=== PATIENT | male | born 1970 | race Caucasian/White ===

== ENCOUNTER 2016-05-07 15:41 | Emergency (ER) | payer MEDICAID ==
--- NOTE | 2016-05-07 17:27 | CT ---
Head CT Technique: Multiple axial sections through the brain were obtained. Intravenous contrast was not utilized. Comparison: Previous head CT study of 03/11/12. Findings: Ventricles along with basal cisterns and sulci over the convexities as well as sulci within the cerebellum appear mildly prominent. No abnormal parenchymal densities are seen. No evidence of intracranial hemorrhage. No midline shift or mass effect is seen. Bone window settings were reviewed which show no discrete calvarial abnormality. Mucosal thickening is partially visualized within the right maxillary sinus. Impression: 1. Mild generalized atrophy including the cerebellum. This appears stable from prior exam. 2. Mucosal thickening partially seen within the maxillary sinus on the right side. This appears stable from prior exam. 3. No acute intracranial abnormality is seen. Diagnostic code #2
[2016-05-07] MEDS ORDERED: Sodium Chloride 0.9% 1,000 ML IV SCH (17:45)
--- NOTE | 2016-05-07 18:02 | EDM.PDOC ---
ED HPI HEAD INJURY - General Chief Complaint: Head Injury Stated Complaint: HEAD INJURY 7 DAYS AGO, HEAD PRESSURE Time Seen by Provider: 05/07/16 16:08 Source of Information: Reports: Patient, RN notes reviewed - History of Present Illness INITIAL COMMENTS - FREE TEXT/NARRATIVE: 45-year-old male comes in with symptoms of headache, nonspecific dizziness, feeling "foggy mentally. He states he fell 8 days ago hitting his left for head. He believes that he did have at least brief LOC. States since that time he has had steady headache. There's been no nausea or vomiting. No major neck chest or other discomfort. Of note he is on aspirin and Plavix with history of prior "heart attacks". He is known to have chronic difficulty with alcohol abuse and dependency. He is known to "be a heavy drinker". He tells me that he is really "cut back and that his last alcohol was last evening, just a couple of drinks. He states she's been having difficulty with disequilibrium now for about a year or 2 and has been seeing a neurologist for that. The headache can blow to his head today is his major concern . - Related Data Allergies/ADRs: Allergies Allergy/AdvReac Type Severity Reaction Status Date / Time No Known Allergies Allergy Verified 12/08/15 06:40 Home Meds: Home Meds Clopidogrel [Plavix] 75 mg PO DAILY 06/08/15 [History] Isosorbide Mononitrate [Imdur] 30 mg PO DAILY 06/08/15 [History] Lisinopril [Prinivil] 2.5 mg PO DAILY 06/08/15 [History] Metoprolol Tartrate 50 mg PO BID 06/08/15 [History] Simvastatin [Zocor] 40 mg PO BEDTIME 06/08/15 [History] Zolpidem [Ambien] 10 mg PO BEDTIME 06/08/15 [History] traZODone 100 mg PO BEDTIME 06/08/15 [History] Aspirin [Halfprin] 81 mg PO DAILY 02/27/16 [History] Baclofen 10 mg PO DAILY 02/27/16 [History] Acetaminophen/HYDROcodone [[place] 325-5 MG] 1 tab PO Q6H PRN #8 tablet 02/29/16 [ Rx] Aspirin [Adult Low Dose Aspirin EC] 81 mg PO DAILY 05/07/16 [History] Hydrocodone/Acetaminophen [Hydrocodon-Acetaminophen 5-325] 1 tab PO DAILY [History] Past Medical History Cardiovascular History: Reports: High cholesterol, Hypertension, [place], Pacemaker, Stents Musculoskeletal History: Reports: Other (see below) Other Musculoskeletal History: Right ankle fracture Psychiatric History: Reports: Addiction, Depression - Infectious Disease History Infectious Disease History: Reports: Chicken pox - Past Surgical History Cardiovascular Surgical History: Reports: AICD, Coronary artery stent, Pacer Musculoskeletal Surgical History: Reports: None Social & Family History - Family History Family Medical History: Noncontributory Cardiac: Reports: High cholesterol, Hypertension, [place] OBGYN: Reports: - Tobacco Use Smoking Status *Q: Current Every Day Smoker Years of Tobacco use: 20 Packs/Tins Daily: 0.5 Used Tobacco, but Quit: No Second Hand Smoke Exposure: No - Caffeine Use Caffeine Use: Reports: Soda - Alcohol Use Days Per Week of Alcohol Use: 2 Number of Drinks Per Day: 2 Total Drinks Per Week: 4 - Recreational Drug Use Recreational Drug Use: No ED ROS GENERAL - Review of Systems Review Of Systems: See Below Constitutional: Denies: fever, chills, diaphoresis HEENT: Reports: Other (for head discomfort). Denies: Sinus problem, Throat pain Respiratory: Denies: shortness of breath, wheezing, pleuritic chest pain Cardiovascular: Denies: Chest pain GI/Abdominal: Denies: Nausea, Vomiting Musculoskeletal: Denies: neck pain, joint pain Skin: Reports: no symptoms Neurological: Reports: dizziness, headache (moderate), gait disturbance ( patient has had chronic gait disturbance and balance difficulty for the past one to 2 years). Denies: numbness, tingling, weakness ED EXAM, HEAD INJURY - Physical Exam Exam: See Below General Appearance: alert, no apparent distress Head: facial swelling (there is mild swelling and erythema left upper for head, apparent area of impact from fall 8 days ago), facial tenderness Eyes: bilateral eye: PERRL Nose: normal inspection Throat/Mouth: Normal inspection, Normal oropharynx Neck: non-tender, full range of motion Respiratory: no respiratory distress, lungs clear, normal breath sounds Cardiovascular: tachycardia GI/Abdominal Exam (Abbreviated): soft, non tender Back Exam: normal inspection Extremities: no evidence of injury, normal range of motion Neurologic: no motor/sensory deficits, normal mood/affect Skin: Normal color, Warm/dry Course - Vital Signs Last Recorded V/S: Last Vital Signs Temp 97.3 F 05/07/16 15:59 Pulse 66 05/07/16 18:59 Resp 12 05/07/16 18:59 BP 120/70 05/07/16 18:59 Pulse Ox 99 05/07/16 18:59 - Orders/Labs/Meds Labs: Laboratory Tests 05/07/16 05/07/16 Range/Units 16:44 16:44 WBC 5.92 (4.23-9.07) K/mm3 RBC 5.22 (4.63-6.08) M/mm3 Hgb 16.6 (13.7-17.5) gm/L Hct 48.1 (40.1-51.0) % MCV 92.1 (79.0-92.2) fl MCH 31.8 (25.7-32.2) pg MCHC 34.5 (32.2-35.5) g/dl RDW Std Deviation 45.2 H (35.1-43.9) fL Plt Count 279 (163-337) K/mm3 MPV 8.8 L (9.4-12.3) fl Neut % (Auto) 46.6 (34.0-67.9) % Lymph % (Auto) 43.6 (21.8-53.1) % [place] % (Auto) 7.6 (5.3-12.2) % Eos % (Auto) 1.7 (0.8-7.0) Baso % (Auto) 0.3 (0.1-1.2) % Neut # 2.76 (1.78-5.38) K/mm3 Lymph # 2.58 (1.32-3.57) K/mm3 [place] # 0.45 (0.30-0.82) K/mm3 Eos # 0.10 (0.04-0.54) K/mm3 Baso # 0.02 (0.01-0.08) K/mm3 Sodium 144 (136-145) mEq/L Potassium 3.6 (3.5-5.1) mEq/L Chloride 105 (98-107) mEq/L Carbon Dioxide 28 (21-32) mEq/L Anion Gap 14.6 (5-15) BUN 8 (7-18) mg/dL Creatinine 0.9 (0.7-1.3) mg/dL Est Cr Clr Drug Dosing 94.87 mL/min Estimated GFR (MDRD) > 60 (>60) mL/min BUN/Creatinine Ratio 8.9 L (14-18) Glucose 94 (74-106) mg/dL Calcium 8.7 (8.5-10.1) mg/dL Total Bilirubin 0.3 (0.2-1.0) mg/dL AST 20 (15-37) U/L ALT 37 (16-63) U/L Alkaline Phosphatase 83 (46-116) U/L Total Protein 7.7 (6.4-8.2) g/dl Albumin 4.2 (3.4-5.0) g/dl Globulin 3.5 gm/dL Albumin/Globulin Ratio 1.2 (1-2) Ethyl Alcohol 0.27 (0.00) gm% Meds: Medications Discontinued Medications Generic Name Dose Route Start Last Admin Trade Name Freq PRN Reason Stop Dose Admin Sodium Chloride 1,000 mls @ 999 mls/hr 05/07/16 17:45 05/07/16 17:54 Normal Saline IV 999 mls/hr ONETIME GABRIELA Administration - Re-Assessments/Exams Free Text/Narrative Re-Assessment/Exam: 05/07/16 17:40. CT of head has come back normal other than generalized atrophy. However labs show EtOH of 0.27. Patient sleeping at this time. We'll give 1 L of normal saline prior to discharge Departure - Departure Time of Disposition: 18:30 Disposition: Home, Self-Care 01 Condition: fair Clinical Impression: Fall Qualifiers: Encounter type: initial encounter Qualified Code(s): W19.XXXA - Unspecified fall, initial encounter Forehead contusion Qualifiers: Encounter type: initial encounter Qualified Code(s): S00.83XA - Contusion of other part of head, initial encounter Alcohol intoxication Qualifiers: Complication of substance-induced condition: uncomplicated Qualified Code(s): F10.120 - Alcohol abuse with intoxication, uncomplicated Instructions: Fall Prevention in the Home, [id number], Contusion, Easy-to- Read Referrals: Levi Bright Jr, MD [Primary Care Provider] - Forms: ED Department Discharge Additional Instructions: rest, avoid further alcohol, drink plenty of water, Tylenol once or twice daily if needed for severe headache, followup with your regular medical provider as needed
[2016-05-07 19:00] VITALS: BP 120/70
== END 2016-05-07 19:10 | disposition home or self-care (01) ==
LOC: JD.ED 15:41
DX: S00.83XA Contusion of other part of head, initial encounter (principal); F10.120 Alcohol abuse with intoxication, uncomplicated; E78.00 Pure hypercholesterolemia, unspecified; I10 Essential (primary) hypertension; I25.2 Old myocardial infarction; F17.210 Nicotine dependence, cigarettes, uncomplicated; Z79.899 Other long term (current) drug therapy; Z79.82 Long term (current) use of aspirin; W18.31XA Fall on same level due to stepping on an object, initial encounter
CPT/HCPCS: 36415; 70450; 80053; 85025; 96360; 99284; G0480; J7040; 99283

== ENCOUNTER 2016-06-03 15:17 | Emergency (ER) | payer MEDICAID ==
--- NOTE | 2016-06-03 16:25 | CT ---
Head CT Technique: Multiple axial sections through the brain were obtained. Intravenous contrast was not utilized. Comparison: Previous head CT study of 05/07/16. Findings: Ventricles along with basal cisterns and sulci over the convexities are mildly prominent. Sulci over the cerebellum are also prominent. No abnormal parenchymal densities are seen. No evidence of intracranial hemorrhage. No midline shift or mass effect is seen. No discrete calvarial abnormality is seen. Visualized sinuses are clear. Impression: 1. Generalized atrophy including the cerebellum. These findings are stable from prior exam. 2. No acute intracranial abnormality is identified on noncontrast head CT study. Diagnostic code #2
--- NOTE | 2016-06-03 16:46 | EDM.PDOC ---
ED HPI NEURO - General Chief Complaint: Neurological Problem Stated Complaint: [facility] Time Seen by Provider: 06/03/16 15:19 Source of Information: Reports: Patient History Limitations: Reports: No limitations - History of Present Illness INITIAL COMMENTS - FREE TEXT/NARRATIVE: The patient presents by ambulance for a fall he had 4 days ago. He has a headache. He has a laceration to the right lateral eyebrow that has a scab. He has had trouble with balance for about 2 years. He is currently in the care of a neurologist, Dr Patten. He is running some tests on him. He was told this could be from heavy drinking in the past and cerebellum issues. He has no nausea or vomiting. He has no chest pain or shortness of breath. He has no fever or chills. Timing/Duration: Reports: Day(s): Location (Neuro Complaint): Reports: generalized Severity: moderate Improves with: Reports: None Worsens with: Reports: None Associated Symptoms: Reports: other (Balance issues) - Related Data Allergies/ADRs: Allergies Allergy/AdvReac Type Severity Reaction Status Date / Time No Known Allergies Allergy Verified 06/03/16 15:23 Home Meds: Home Meds Clopidogrel [Plavix] 75 mg PO DAILY 06/08/15 [History] Isosorbide Mononitrate [Imdur] 30 mg PO DAILY 06/08/15 [History] Lisinopril [Prinivil] 2.5 mg PO DAILY 06/08/15 [History] Metoprolol Tartrate 50 mg PO BID 06/08/15 [History] Simvastatin [Zocor] 40 mg PO BEDTIME 06/08/15 [History] Zolpidem [Ambien] 10 mg PO BEDTIME 06/08/15 [History] traZODone 100 mg PO BEDTIME 06/08/15 [History] Aspirin [Halfprin] 81 mg PO DAILY 02/27/16 [History] Baclofen 10 mg PO DAILY 02/27/16 [History] Acetaminophen/HYDROcodone [[place] 325-5 MG] 1 tab PO Q6H PRN #8 tablet 02/29/16 [ Rx] Hydrocodone/Acetaminophen [Hydrocodon-Acetaminophen 5-325] 1 tab PO DAILY [History] Hydrocodone/Acetaminophen [Hydrocodon-Acetaminophen 5-325] 1 - 2 each PO Q6HR PRN #10 tablet 06/03/16 [Rx] Past Medical History HEENT History: Reports: Impaired vision Other HEENT History: reading glasses Cardiovascular History: Reports: High cholesterol, Hypertension, [place], Pacemaker, Stents Musculoskeletal History: Reports: Other (see below) Other Musculoskeletal History: Right ankle fracture Neurological History: Reports: Head trauma Psychiatric History: Reports: Addiction, Depression - Infectious Disease History Infectious Disease History: Reports: Chicken pox - Past Surgical History HEENT Surgical History: Reports: None Cardiovascular Surgical History: Reports: AICD, Coronary artery stent, Pacer Musculoskeletal Surgical History: Reports: None Social & Family History - Family History Family Medical History: Noncontributory Cardiac: Reports: High cholesterol, Hypertension, [place] OBGYN: Reports: - Tobacco Use Smoking Status *Q: Current Every Day Smoker Years of Tobacco use: 27 Packs/Tins Daily: 0.5 Used Tobacco, but Quit: No Second Hand Smoke Exposure: No - Caffeine Use Caffeine Use: Reports: Soda - Alcohol Use Days Per Week of Alcohol Use: 2 Number of Drinks Per Day: 2 Total Drinks Per Week: 4 - Recreational Drug Use Recreational Drug Use: No ED ROS GENERAL - Review of Systems Review Of Systems: See Below Constitutional: Reports: no symptoms HEENT: Reports: Other (Contusion and laceration to the right side of his face) Respiratory: Reports: No Symptoms Cardiovascular: Reports: No symptoms Endocrine: Reports: no symptoms GI/Abdominal: Reports: No symptoms : Reports: no symptoms Musculoskeletal: Reports: no symptoms Skin: Reports: no symptoms Neurological: Reports: Dizziness, Headache, Other (Off balance) ED EXAM, NEURO - Physical Exam Exam: See Below Exam Limited By: No limitations General Appearance: alert, no apparent distress, other (Old laceration to the right lateral eyebrow) Eye Exam: bilateral eye: EOMI, PERRL Ears: normal external exam Nose: normal inspection Throat/Mouth: Normal inspection Head Exam: other (Ecchymosis to the right lateral eye. Old laceration to the right lateral eye with a scab.) Neck: normal inspection, non-tender Respiratory/Chest: no respiratory distress, lungs clear, normal breath sounds Cardiovascular: regular rate, rhythm, no edema, no murmur GI/Abdominal: soft, non tender, no organomegaly, no mass Neurological: alert, no motor/sensory deficits, oriented x 3, abnormal finger to nose (right and left arm and right and left leg with worse on the right) Back Exam: normal inspection Extremities: normal inspection Course - Vital Signs Last Recorded V/S: Last Vital Signs Temp 98.2 F 06/03/16 15:27 Pulse 96 06/03/16 15:27 Resp 16 06/03/16 15:27 BP 138/97 H 06/03/16 15:27 Pulse Ox 97 06/03/16 15:27 - Orders/Labs/Meds Labs: Laboratory Tests 06/03/16 Range/Units 16:05 Ethyl Alcohol 0.00 (0.00) gm% Meds: Medications Discontinued Medications Generic Name Dose Route Start Last Admin Trade Name Freq PRN Reason Stop Dose Admin Hydrocodone Bitart/Acetaminophen 1 tab 06/03/16 17:15 [place] 325-5 Mg PO 06/03/16 17:16 ONETIME ONE Meclizine HCl 25 mg 06/03/16 15:47 06/03/16 16:06 Antivert PO 06/03/16 15:48 25 mg ONETIME ONE Administration - Re-Assessments/Exams Free Text/Narrative Re-Assessment/Exam: 06/03/16 16:[address] of his head that shows generalized atrophy including the cerebellum. These findings are stable from prior exam. No acute intracranial abnormality is identified on noncontrast head CT study. 06/03/16 17:25 His ETOH is negative. He will be seeing Dr Patten at [place] on June 17 and having an MRI done. I will give him a hydrocodone for his headache. Departure - Departure Time of Disposition: 17:30 Disposition: Home, Self-Care 01 Condition: good Clinical Impression: Ataxia Fall Qualifiers: Encounter type: initial encounter Qualified Code(s): W19.XXXA - Unspecified fall, initial encounter Contusion of head Qualifiers: Encounter type: initial encounter Contusion of head detail: unspecified part of head Qualified Code(s): S00.93XA - Contusion of unspecified part of head, initial encounter Headache Qualifiers: Headache type: unspecified Headache chronicity pattern: acute headache Intractability: not intractable Qualified Code(s): R51 - Headache Prescriptions: Hydrocodone/Acetaminophen [Hydrocodon-Acetaminophen 5-325] 1 - 2 each PO Q6HR PRN #10 tablet PRN Reason: Pain Referrals: Levi Bright Jr, MD [Primary Care Provider] - 1 Week Forms: ED Department Discharge Additional Instructions: Take the hydrocodone as needed for headache. Please return if you are worse. Follow up with your neurologist as scheduled.
[2016-06-03] MEDS ORDERED: Acetaminophen/HYDROcodone 325-5 MG Tab PO ONE (17:15)
[2016-06-03 18:34] VITALS: BP 118/80
== END 2016-06-03 18:00 | disposition home or self-care (01) ==
LOC: JD.ED 15:17 → SUPCPDRO 15:17 → JD.ED 18:00
DX: S00.93XA Contusion of unspecified part of head, initial encounter (principal); W19.XXXA Unspecified fall, initial encounter; R27.0 Ataxia, unspecified; Z79.82 Long term (current) use of aspirin; Z79.899 Other long term (current) drug therapy; E78.00 Pure hypercholesterolemia, unspecified; I10 Essential (primary) hypertension; Z95.810 Presence of automatic (implantable) cardiac defibrillator; Z95.5 Presence of coronary angioplasty implant and graft; F32.9 Major depressive disorder, single episode, unspecified; F17.200 Nicotine dependence, unspecified, uncomplicated
CPT/HCPCS: 36415; 70450; 99285; A9270; G0480; 99283

== ENCOUNTER 2016-11-06 10:30 | Emergency (ER) | payer MEDICAID ==
[2016-11-06 10:41] VITALS: BP 116/81
[2016-11-06] MEDS ORDERED: Ondansetron 4 MG/2 ML SDV IVPUSH ONE (11:41)
[2016-11-06] MEDS ORDERED: Sodium Chloride 0.9% 10 ML Syringe FLUSH PRN (11:41)
[2016-11-06] MEDS ORDERED: Sodium Chloride 0.9% 1,000 ML IV ONE ×2 (11:41→12:42)
--- NOTE | 2016-11-06 11:54 | EDM.PDOCBH ---
ED HPI GENERAL MEDICAL PROBLEM - General Chief Complaint: Behavioral/Psych Stated Complaint: Alcohol intoxication Time Seen by Provider: 11/06/16 10:47 Source of Information: Reports: Patient, EMS, RN Notes Reviewed History Limitations: Reports: Intoxication - History of Present Illness INITIAL COMMENTS - FREE TEXT/NARRATIVE: 46 year old male presents to the ED today via [facility] for alcohol intoxication. The patient lives in an apartment complex here in town and his casino cashier manager called EMS due to concerns for his safety. Our charge nurse MARGRET Kumar spoke to the casino cashier manager. She was referred to the States Attorneys office to discuss committal. The patient has voiced concerns of depression according to the casino cashier manager. She reported that he has been drinking excessively as of the last couple months. EMS report from Inga Zambrano states that the patient is intoxicated. She reports that the patient lost his best friend recently and his drinking and depression has been worsening since that time. The patient is intoxicated and smells of alcohol. He denies depression or suicidal ideation upon arrival to the ER. His main concern is that he is having trouble sleeping at night. He admits to drinking alcohol on a daily basis but denies alcohol withdrawal symptoms in the past. He admits to chest pain for the last 6 weeks. The pain is located to the center of his chest. It does not radiate. He denies shortness of breath. He has a history of CAD and stents. He says he has an upcoming appointment with his [employer]ch [employer]. He continues to smoke approximately 1/2 pack of cigarettes per day. He denies drug use. No lower extremity swelling. No nausea, vomiting, or abdominal pain. Chest Pain Score (Numeric/FACES): 8 - Related Data Allergies Allergy/AdvReac Type Severity Reaction Status Date / Time No Known Allergies Allergy Verified 11/06/16 10:42 Home Meds: Home Meds Clopidogrel [Plavix] 75 mg PO DAILY 06/08/15 [History] Isosorbide Mononitrate [Imdur] 30 mg PO DAILY 06/08/15 [History] Lisinopril [Prinivil] 2.5 mg PO DAILY 06/08/15 [History] Metoprolol Tartrate 50 mg PO BID 06/08/15 [History] Simvastatin [Zocor] 40 mg PO BEDTIME 06/08/15 [History] Zolpidem [Ambien] 5 - 10 mg PO BEDTIME 06/08/15 [History] traZODone 50 - 100 mg PO BEDTIME 06/08/15 [History] Aspirin [Halfprin] 81 mg PO DAILY 02/27/16 [History] Acetaminophen/HYDROcodone [[place]iday 325-5 MG] 1 - 2 tab PO Q6H PRN 11/06/16 [ History] LORazepam 1 tab PO QID PRN 11/06/16 [History] Past Medical History HEENT History: Reports: Impaired Vision Other HEENT History: reading glasses Cardiovascular History: Reports: High Cholesterol, Hypertension, [place], Pacemaker, Stents Musculoskeletal History: Reports: Other (See Below) Other Musculoskeletal History: Right ankle fracture Neurological History: Reports: Head Trauma Psychiatric History: Reports: Addiction, Depression - Infectious Disease History Infectious Disease History: Reports: Chicken Pox - Past Surgical History Cardiovascular Surgical History: Reports: AICD, Coronary Artery Stent, Pacer Social & Family History - Family History Family Medical History: Noncontributory Cardiac: Reports: High Cholesterol, Hypertension, [place] OBGYN: Reports: - Tobacco Use Smoking Status *Q: Current Every Day Smoker Years of Tobacco use: 14 Packs/Tins Daily: 0.5 Used Tobacco, but Quit: No Second Hand Smoke Exposure: No - Caffeine Use Caffeine Use: Reports: Soda - Alcohol Use Days Per Week of Alcohol Use: 7 Number of Drinks Per Day: 6 Total Drinks Per Week: 42 - Recreational Drug Use Recreational Drug Use: No ED ROS GENERAL - Review of Systems Review Of Systems: See Below Constitutional: Reports: No Symptoms. Denies: Fever, Chills, Diaphoresis Respiratory: Reports: No Symptoms. Denies: Shortness of Breath, Cough Cardiovascular: Reports: Chest Pain. Denies: Dyspnea on Exertion, Edema, Lightheadedness, Syncope GI/Abdominal: Reports: No Symptoms. Denies: Abdominal Pain, Nausea, Vomiting Neurological: Reports: No Symptoms. Denies: Confusion, Dizziness, Headache Psychiatric: Reports: Depression. Denies: Homicidal Ideation, Suicidal Ideation ED EXAM, BEHAVIORAL HEALTH - Physical Exam Exam: See Below Exam Limited By: Intoxication General Appearance: Alert, WD/WN, No Apparent Distress, Other (intoxicated, smells of ETOH) Eye Exam: Bilateral Eye: EOMI, Normal Inspection, PERRL Respiratory/Chest: No Respiratory Distress, Lungs Clear, Normal Breath Sounds Cardiovascular: Normal Peripheral Pulses, No Edema, No Murmur, Tachycardia GI/Abdominal: Normal Bowel Sounds, Soft, Non-Tender, No Distention Neurological: Alert, Normal Mood/Affect, CN II-XII Intact, Normal Cognition, Oriented x 3, Other (speech is slow and slurred at times. no facial assymetry. no focal neurologic deficit. ). No: Tremor Psychiatric: Alert, Other (patient is smiling, joking with staff, and denies suicidal ideation or plan. He tells me that he is happy and denies feeling depressed. He is having trouble sleeping and is unsure why. ). No: Withdrawn, Homicidal Thoughts, Suicidal Plan, Suicidal Thoughts, Paranoid Thoughts, Threatening Behavior COURSE, BEHAVIORAL HEALTH COMP - Course Vital Signs: Last Vital Signs Temp 98.2 F 11/06/16 10:33 Pulse 102 H 11/06/16 10:33 Resp 18 11/06/16 10:33 BP 116/81 11/06/16 10:33 Pulse Ox 96 11/06/16 10:33 Orders, Labs, Meds: Active Orders 24 hr Category Date Time Status EKG 12 Lead [EKG Documentation Completion] [RC] STAT Care 11/06/16 11:41 Active Peripheral IV Care [RC] . DIRECTED Care 11/06/16 11:42 Active Biotin/FA/Vit C/Vit B Complex [Nephrocaps] Med 11/06/16 12:57 Active 1 tab PO DAILY Sodium Chloride 0.9% [Saline Flush] Med 11/06/16 11:41 Active 10 ml FLUSH ASDIRECTED PRN Peripheral IV Insertion Adult [OM.PC] Stat Oth 11/06/16 11:41 Ordered Medication Orders Sodium Chloride (Saline Flush) 10 ml FLUSH ASDIRECTED PRN PRN Reason: Keep Vein Open Last Admin: 11/06/16 11:51 Dose: 10 ml Vitamin B Complex/Vit C/Folic Acid (Nephrocaps) 1 tab PO DAILY GABRIELA Last Admin: 11/06/16 13:44 Dose: 1 tab Laboratory Tests 11/06/16 11/06/16 11/06/16 Range/Units 11:30 11:30 11:50 WBC 5.18 (4.23-9.07) K/mm3 RBC 4.91 (4.63-6.08) M/mm3 Hgb 15.6 (13.7-17.5) gm/L Hct 45.3 (40.1-51.0) % MCV 92.3 H (79.0-92.2) fl MCH 31.8 (25.7-32.2) pg MCHC 34.4 (32.2-35.5) g/dl RDW Std Deviation 43.3 (35.1-43.9) fL Plt Count 193 (163-337) K/mm3 MPV 9.5 (9.4-12.3) fl Neut % (Auto) 43.2 (34.0-67.9) % Lymph % (Auto) 43.6 (21.8-53.1) % Edwards % (Auto) 9.5 (5.3-12.2) % Eos % (Auto) 3.3 (0.8-7.0) Baso % (Auto) 0.2 (0.1-1.2) % Neut # (Auto) 2.24 (1.78-5.38) K/mm3 Lymph # (Auto) 2.26 (1.32-3.57) K/mm3 [place] # (Auto) 0.49 (0.30-0.82) K/mm3 Eos # (Auto) 0.17 (0.04-0.54) K/mm3 Baso # (Auto) 0.01 (0.01-0.08) K/mm3 Sodium (136-145) mEq/L Potassium (3.5-5.1) mEq/L Chloride (98-107) mEq/L Carbon Dioxide (21-32) mEq/L Anion Gap (5-15) BUN (7-18) mg/dL Creatinine (0.7-1.3) mg/dL Est Cr Clr Drug Dosing Estimated GFR (MDRD) (>60) mL/min BUN/Creatinine Ratio (14-18) Glucose (74-106) mg/dL Calcium (8.5-10.1) mg/dL Total Bilirubin (0.2-1.0) mg/dL AST (15-37) U/L ALT (16-63) U/L Alkaline Phosphatase (46-116) U/L Troponin I (0.00-0.056) ng/mL Total Protein (6.4-8.2) g/dl Albumin (3.4-5.0) g/dl Globulin gm/dL Albumin/Globulin Ratio (1-2) Urine Color Yellow (Yellow) Urine Appearance Clear (Clear) Urine pH 6.0 (5.0-8.0) Ur Specific [place] 1.010 (1.005-1.030) Urine Protein Negative (Negative) Urine Glucose (UA) Negative (Negative) Urine Ketones Negative (Negative) Urine Occult Blood Negative (Negative) Urine Nitrite Negative (Negative) Urine Bilirubin Negative (Negative) Urine Urobilinogen 0.2 (0.2-1.0) Ur Leukocyte Esterase Negative (Negative) Urine RBC Not seen (0-5) /hpf Urine WBC Not seen (0-5) /hpf Ur Epithelial Cells 0-5 (0-5) /hpf Urine Bacteria Not seen (FEW) /hpf Urine Mucus Not seen (FEW) /hpf Urine Opiates Screen Negative (NEGATIVE) Ur Buprenorphine Scrn Negative (NEGATIVE) Ur Oxycodone Screen Negative (NEGATIVE) Urine Methadone Screen Negative (NEGATIVE) Ur Propoxyphene Screen Negative (NEGATIVE) Ur Barbiturates Screen Negative (NEGATIVE) Ur Tricyclics Screen Negative (NEGATIVE) Ur Phencyclidine Scrn Negative (NEGATIVE) Ur Amphetamine Screen Negative (NEGATIVE) U Methamphetamines Scrn Negative (NEGATIVE) U Benzodiazepines Scrn Negative (NEGATIVE) U Cocaine Metab Screen Negative (NEGATIVE) U Marijuana (THC) Screen Negative (NEGATIVE) Ethyl Alcohol (0.00) gm% 11/06/16 Range/Units 11:50 WBC (4.23-9.07) K/mm3 RBC (4.63-6.08) M/mm3 Hgb (13.7-17.5) gm/L Hct (40.1-51.0) % MCV (79.0-92.2) fl MCH (25.7-32.2) pg MCHC (32.2-35.5) g/dl RDW Std Deviation (35.1-43.9) fL Plt Count (163-337) K/mm3 MPV (9.4-12.3) fl Neut % (Auto) (34.0-67.9) % Lymph % (Auto) (21.8-53.1) % Edwards % (Auto) (5.3-12.2) % Eos % (Auto) (0.8-7.0) Baso % (Auto) (0.1-1.2) % Neut # (Auto) (1.78-5.38) K/mm3 Lymph # (Auto) (1.32-3.57) K/mm3 Edwards # (Auto) (0.30-0.82) K/mm3 Eos # (Auto) (0.04-0.54) K/mm3 Baso # (Auto) (0.01-0.08) K/mm3 Sodium 146 H (136-145) mEq/L Potassium 4.4 (3.5-5.1) mEq/L Chloride 110 H (98-107) mEq/L Carbon Dioxide 27 (21-32) mEq/L Anion Gap 13.4 (5-15) BUN 8 (7-18) mg/dL Creatinine 0.9 (0.7-1.3) mg/dL Est Cr Clr Drug Dosing TNP Estimated GFR (MDRD) > 60 (>60) mL/min BUN/Creatinine Ratio 8.9 L (14-18) Glucose 98 (74-106) mg/dL Calcium 8.5 (8.5-10.1) mg/dL Total Bilirubin 0.2 (0.2-1.0) mg/dL AST 34 (15-37) U/L ALT 51 (16-63) U/L Alkaline Phosphatase 72 (46-116) U/L Troponin I < 0.017 (0.00-0.056) ng/mL Total Protein 7.8 (6.4-8.2) g/dl Albumin 4.4 (3.4-5.0) g/dl Globulin 3.4 gm/dL Albumin/Globulin Ratio 1.3 (1-2) Urine Color (Yellow) Urine Appearance (Clear) Urine pH (5.0-8.0) Ur Specific [place] (1.005-1.030) Urine Protein (Negative) Urine Glucose (UA) (Negative) Urine Ketones (Negative) Urine Occult Blood (Negative) Urine Nitrite (Negative) Urine Bilirubin (Negative) Urine Urobilinogen (0.2-1.0) Ur Leukocyte Esterase (Negative) Urine RBC (0-5) /hpf Urine WBC (0-5) /hpf Ur Epithelial Cells (0-5) /hpf Urine Bacteria (FEW) /hpf Urine Mucus (FEW) /hpf Urine Opiates Screen (NEGATIVE) Ur Buprenorphine Scrn (NEGATIVE) Ur Oxycodone Screen (NEGATIVE) Urine Methadone Screen (NEGATIVE) Ur Propoxyphene Screen (NEGATIVE) Ur Barbiturates Screen (NEGATIVE) Ur Tricyclics Screen (NEGATIVE) Ur Phencyclidine Scrn (NEGATIVE) Ur Amphetamine Screen (NEGATIVE) U Methamphetamines Scrn (NEGATIVE) U Benzodiazepines Scrn (NEGATIVE) U Cocaine Metab Screen (NEGATIVE) U Marijuana (THC) Screen (NEGATIVE) Ethyl Alcohol 0.41 (0.00) gm% Medications Generic Name Dose Route Start Last Admin Trade Name Freq PRN Reason Stop Dose Admin Sodium Chloride 10 ml 11/06/16 11:41 11/06/16 11:51 Saline Flush FLUSH 10 ml ASDIRECTED PRN Administration Keep Vein Open Vitamin B Complex/Vit C/Folic Acid 1 tab 11/06/16 12:57 11/06/16 13:44 Nephrocaps PO 1 tab DAILY GABRIELA Administration Discontinued Medications Generic Name Dose Route Start Last Admin Trade Name Freq PRN Reason Stop Dose Admin Folic Acid 1 mg 11/06/16 12:56 11/06/16 13:43 Folic Acid PO 11/06/16 12:57 1 mg ONETIME ONE Administration Sodium Chloride 1,000 mls @ 999 mls/hr 11/06/16 11:41 11/06/16 11:50 Normal Saline IV 11/06/16 12:41 999 mls/hr ONETIME ONE Administration Sodium Chloride 1,000 mls @ 999 mls/hr 11/06/16 12:42 11/06/16 13:02 Normal Saline IV 11/06/16 13:42 999 mls/hr ONETIME ONE Administration Magnesium Oxide 400 mg 11/06/16 12:56 11/06/16 13:43 Magnesium Oxide PO 11/06/16 12:57 400 mg ONETIME ONE Administration Ondansetron HCl 4 mg 11/06/16 11:41 11/06/16 11:50 Zofran IVPUSH 11/06/16 11:42 4 mg ONETIME ONE Administration Thiamine HCl 100 mg 11/06/16 12:56 11/06/16 13:43 Vitamin B-1 PO 11/06/16 12:57 100 mg ONETIME ONE Administration Re-Assessment/Re-Exam: EKG performed at 1138. Reveals SR 90 bpm with PVC. No acute St changes. T wave inversion laterally. EKG read by Dr. Boss. CBC and CMP are normal. Troponin is WNL. UA normal. UDS is negative. ETOH is 0.41. Patient was treated with IV fluids and zofran. He has been smiling, joking, interactive, and exhibits no sign of depression. He denies suicidal ideation or plan. There is no medical indication for involuntary commitment. Our charge nurse did speak with his casino cashier manager initially and did make her aware that she can file a petition with the [facility] attorneys office in regards to her concerns. He will be monitored until he is able to eat and ambulate with a steady gait. He will then be discharged home. 1515 Patient was able to eat with no nausea or vomiting. He is still unsteady on his feet when ambulating. Will continue to monitor him in the ED until he is safe for discharge. 1715 The patient slept for over an hour. He was able to ambulate with a more steady gait. He does ambulate with a walker at home and his gait is unsteady at baseline. He continues to deny suicidal ideation or plan. He does admit to feeling depressed as he lost his friend a couple weeks ago in a tragic accident. I feel he is safe to be discharged home. We will call him a cab. I asked if he would be willing to see a counselor, he replied yes. I mentioned [facility] but he is not willing to follow-up there. He says he drinks because of the depression. His PCP Dr. Bright started him on an antidepressant this week. He feels counseling would be of great help. He was given a list of local counselors in [facility]. He was instructed to return if he develops and thoughts of hurting himself. He agreed. Discharge instructions as documented. Departure - Departure Time of Disposition: 17:48 Disposition: Home, Self-Care 01 Condition: Good Clinical Impression: Alcohol abuse - Discharge Information Instructions: Alcohol Abuse and Nutrition Referrals: Levi rBight Jr, MD [Primary Care Provider] - Forms: ED Department Discharge Additional Instructions: Follow-up with [facility] if you would like help with your alcohol use and depression symptoms. Return to ER as needed We advise that you seek help for your alcohol use. No driving today as your alcohol level was quite high. - My Orders Last 24 Hours: My Active Orders 11/06/16 11:41 EKG 12 Lead [EKG Documentation Completion] [RC] STAT Sodium Chloride 0.9% [Saline Flush] 10 ml FLUSH ASDIRECTED PRN Peripheral IV Insertion Adult [OM.PC] Stat 11/06/16 11:42 Peripheral IV Care [RC] . DIRECTED 11/06/16 12:57 Biotin/FA/Vit C/Vit B Complex [Nephrocaps] 1 tab PO DAILY - Assessment/Plan Last 24 Hours: My Active Orders 11/06/16 11:41 EKG 12 Lead [EKG Documentation Completion] [RC] STAT Sodium Chloride 0.9% [Saline Flush] 10 ml FLUSH ASDIRECTED PRN Peripheral IV Insertion Adult [OM.PC] Stat 11/06/16 11:42 Peripheral IV Care [RC] . DIRECTED 11/06/16 12:57 Biotin/FA/Vit C/Vit B Complex [Nephrocaps] 1 tab PO DAILY
[2016-11-06] MEDS ORDERED: Folic Acid 1 MG Tab PO ONE (12:56)
[2016-11-06] MEDS ORDERED: Magnesium Oxide 400 MG Tab PO ONE (12:56)
[2016-11-06] MEDS ORDERED: Thiamine 100 MG Tab PO ONE (12:56)
[2016-11-06] MEDS ORDERED: Biotin/Folic Acid/Vitamin C/Vitamin B Complex Tab PO SCH (12:57)
== END 2016-11-06 17:40 | disposition home or self-care (01) ==
LOC: JD.ED 10:30
DX: F10.120 Alcohol abuse with intoxication, uncomplicated (principal); I25.10 Atherosclerotic heart disease of native coronary artery without angina pectoris; E78.00 Pure hypercholesterolemia, unspecified; I10 Essential (primary) hypertension; I25.2 Old myocardial infarction; F17.210 Nicotine dependence, cigarettes, uncomplicated; Z79.82 Long term (current) use of aspirin; Z79.899 Other long term (current) drug therapy; Z95.810 Presence of automatic (implantable) cardiac defibrillator
CPT/HCPCS: 36415; 80053; 80306; 81001; 84484; 85025; 93005; 99285; A9270; G0480; J2405; J7040; J7050; 99284

== ENCOUNTER 2017-02-03 11:23 | Emergency (ER) | payer MEDICAID ==
[2017-02-03 11:37] VITALS: BP 120/75
[2017-02-03] MEDS ORDERED: Sodium Chloride 0.9% 10 ML Syringe FLUSH PRN (11:50)
--- NOTE | 2017-02-03 12:45 | EDM.PDOC ---
ED HPI GENERAL MEDICAL PROBLEM - General Chief Complaint: Chest Pain Stated Complaint: CHEST PAIN Time Seen by Provider: 02/03/17 11:44 Source of Information: Reports: Patient History Limitations: Reports: No Limitations - History of Present Illness INITIAL COMMENTS - FREE TEXT/NARRATIVE: The patient presents with left chest pain that radiates to his back. This started a couple days ago. The pain is sharp and it radiates into his upper back. He may have some shortness of breath with it associated with the pain. When he twists to the left he feels more pain. He has no fever or chills but he does have a cough and some congestion. He has a history of LA with stents and a defibrillator. He also has hypercholesterolemia, and HTN. Onset: Gradual Duration: Day(s): (2) Location: Reports: Chest Quality: Reports: Sharp Severity: Moderate Improves with: Reports: Immobilization Worsens with: Reports: Movement Context: Reports: Activity (Twisting his chest) Associated Symptoms: Reports: Chest Pain, Cough Left Chest Pain Score (Numeric/FACES): 7 - Related Data Allergies Allergy/AdvReac Type Severity Reaction Status Date / Time No Known Allergies Allergy Verified 02/03/17 11:37 Home Meds: Home Meds Clopidogrel [Plavix] 75 mg PO DAILY 06/08/15 [History] Isosorbide Mononitrate [Imdur] 30 mg PO DAILY 06/08/15 [History] Lisinopril [Prinivil] 2.5 mg PO DAILY 06/08/15 [History] Metoprolol Tartrate 50 mg PO BID 06/08/15 [History] Zolpidem [Ambien] 5 - 10 mg PO BEDTIME 06/08/15 [History] traZODone 50 - 100 mg PO BEDTIME 06/08/15 [History] Aspirin [Halfprin] 81 mg PO DAILY 02/27/16 [History] LORazepam 1 tab PO TID PRN 11/06/16 [History] Baclofen 5 mg PO TID 02/03/17 [History] Hydrocodone/Acetaminophen [Hydrocodon-Acetaminophen 5-325] 1 - 2 each PO Q6HR PRN #10 tablet 02/03/17 [Rx] Metoprolol Succinate [Toprol XL] 50 mg PO BID 02/03/17 [History] PARoxetine [Paxil] 20 mg PO DAILY 02/03/17 [History] atorvaSTATin [Lipitor] 20 mg PO BEDTIME 02/03/17 [History] Past Medical History HEENT History: Reports: Impaired Vision Other HEENT History: reading glasses Cardiovascular History: Reports: High Cholesterol, Hypertension, [place], Pacemaker, Stents Musculoskeletal History: Reports: Other (See Below) Other Musculoskeletal History: Right ankle fracture Neurological History: Reports: Head Trauma Psychiatric History: Reports: Addiction, Depression - Infectious Disease History Infectious Disease History: Reports: Chicken Pox - Past Surgical History Cardiovascular Surgical History: Reports: AICD, Coronary Artery Stent, Pacer Social & Family History - Family History Family Medical History: Noncontributory Cardiac: Reports: High Cholesterol, Hypertension, [place] OBGYN: Reports: - Tobacco Use Smoking Status *Q: Current Every Day Smoker Years of Tobacco use: 27 Packs/Tins Daily: 0.5 Used Tobacco, but Quit: No Second Hand Smoke Exposure: No - Caffeine Use Caffeine Use: Reports: Soda - Alcohol Use Days Per Week of Alcohol Use: 7 Number of Drinks Per Day: 6 Total Drinks Per Week: 42 - Recreational Drug Use Recreational Drug Use: No ED ROS GENERAL - Review of Systems Review Of Systems: See Below Constitutional: Reports: No Symptoms HEENT: Reports: Other (Congestion) Respiratory: Reports: Shortness of Breath Cardiovascular: Reports: Chest Pain Endocrine: Reports: No Symptoms GI/Abdominal: Reports: No Symptoms : Reports: No Symptoms Musculoskeletal: Reports: Back Pain (Left upper back) Skin: Reports: No Symptoms ED EXAM, GENERAL - Physical Exam Exam: See Below Exam Limited By: No Limitations General Appearance: Alert, No Apparent Distress Ears: Normal External Exam Nose: Normal Inspection Head: Atraumatic, Normocephalic Neck: Normal Inspection Respiratory/Chest: No Respiratory Distress, Lungs Clear, Normal Breath Sounds Cardiovascular: Regular Rate, Rhythm, No Edema, No Murmur GI/Abdominal: Soft, Non-Tender, No Organomegaly, No Mass Extremities: Normal Inspection Neurological: Alert, Oriented, No Motor/Sensory Deficits EKG INTERPRETATION EKG Date: 02/03/17 Time: 11:39 Rhythm: NSR Rate (Beats/Min): 75 [place]: Normal P-Wave: Present QRS: Normal ST-T: Other (Flipped T waves in the lateral leads and minimal ST elevation anterior leads. These changes were all seen on prior EKGs.) Course - Vital Signs Last Recorded V/S: Last Vital Signs Temp 97.3 F 02/03/17 11:35 Pulse 82 02/03/17 11:35 Resp 14 02/03/17 11:35 BP 120/75 02/03/17 11:35 Pulse Ox 96 02/03/17 11:35 - Orders/Labs/Meds Orders: Active Orders 24 hr Category Date Time Status Cardiac Monitoring [RC] . DIRECTED Care 02/03/17 11:50 Active EKG Documentation Completion [RC] STAT Care 02/03/17 11:51 Active Oxygen Therapy [RC] PRN Care 02/03/17 11:50 Active Peripheral IV Care [RC] . DIRECTED Care 02/03/17 11:51 Active Chest 1V Frontal [CR] Stat Exams 02/03/17 11:51 Taken Sodium Chloride 0.9% [Saline Flush] Med 02/03/17 11:50 Active 10 ml FLUSH ASDIRECTED PRN Peripheral IV Insertion Adult [OM.PC] Stat Oth 02/03/17 11:50 Ordered Medication Orders Sodium Chloride (Saline Flush) 10 ml FLUSH ASDIRECTED PRN PRN Reason: Keep Vein Open Last Admin: 02/03/17 12:18 Dose: 10 ml Labs: Laboratory Tests 02/03/17 02/03/17 02/03/17 Range/Units 11:45 11:45 11:45 WBC 6.05 (4.23-9.07) K/mm3 RBC 4.65 (4.63-6.08) M/mm3 Hgb 14.8 (13.7-17.5) gm/L Hct 43.4 (40.1-51.0) % MCV 93.3 H (79.0-92.2) fl MCH 31.8 (25.7-32.2) pg MCHC 34.1 (32.2-35.5) g/dl RDW Std Deviation 41.3 (35.1-43.9) fL Plt Count 239 (163-337) K/mm3 MPV 9.6 (9.4-12.3) fl Neut % (Auto) 58.0 (34.0-67.9) % Lymph % (Auto) 29.1 (21.8-53.1) % [place] % (Auto) 7.4 (5.3-12.2) % Eos % (Auto) 5.0 (0.8-7.0) Baso % (Auto) 0.3 (0.1-1.2) % Neut # (Auto) 3.51 (1.78-5.38) K/mm3 Lymph # (Auto) 1.76 (1.32-3.57) K/mm3 [place] # (Auto) 0.45 (0.30-0.82) K/mm3 Eos # (Auto) 0.30 (0.04-0.54) K/mm3 Baso # (Auto) 0.02 (0.01-0.08) K/mm3 D-Dimer, Quantitative 0.38 (0.19-0.59) mg/L Sodium 138 (136-145) mEq/L Potassium 4.4 (3.5-5.1) mEq/L Chloride 103 (98-107) mEq/L Carbon Dioxide 26 (21-32) mEq/L Anion Gap 13.4 (5-15) BUN 14 (7-18) mg/dL Creatinine 0.9 (0.7-1.3) mg/dL Est Cr Clr Drug Dosing TNP Estimated GFR (MDRD) > 60 (>60) mL/min BUN/Creatinine Ratio 15.6 (14-18) Glucose 98 (74-106) mg/dL Calcium 9.2 (8.5-10.1) mg/dL Total Bilirubin 0.5 (0.2-1.0) mg/dL AST 49 H (15-37) U/L ALT 99 H (16-63) U/L Alkaline Phosphatase 98 (46-116) U/L Troponin I < 0.017 (0.00-0.056) ng/mL Total Protein 7.4 (6.4-8.2) g/dl Albumin 3.8 (3.4-5.0) g/dl Globulin 3.6 gm/dL Albumin/Globulin Ratio 1.1 (1-2) Ethyl Alcohol 0.00 (0.00) gm% Meds: Medications Generic Name Dose Route Start Last Admin Trade Name Freq PRN Reason Stop Dose Admin Sodium Chloride 10 ml 02/03/17 11:50 02/03/17 12:18 Saline Flush FLUSH 10 ml ASDIRECTED PRN Administration Keep Vein Open - Re-Assessments/Exams Free Text/Narrative Re-Assessment/Exam: 02/03/17 12:45 I ordered an IV saline lock, labs, EKG, and CXR. He took aspirin before arrival. His EKG shows a NSR with no acute changes. He has some changes but they were there on old EKGs. His CXR looks good. His CBC and CMP look good. His troponin is negative. His liver enzymes are slightly elevated and his ETOH was negative. He has been in before with CP and he was intoxicated. This appears to be chest wall pain. He asked if he could take mucinex for the cold and it appears he can. Departure - Departure Time of Disposition: 12:50 Disposition: Home, Self-Care 01 Condition: Good Clinical Impression: Chest wall pain, Viral upper respiratory infection Prescriptions: Hydrocodone/Acetaminophen [Hydrocodon-Acetaminophen 5-325] 1 - 2 each PO Q6HR PRN #10 tablet PRN Reason: Pain Referrals: Jesse Pedroza MD [Primary Care Provider] - 1 Week Additional Instructions: Take the hydrocodone for pain. You can take the mucinex as directed. Follow up with your doctor. - My Orders Last 24 Hours: My Active Orders 02/03/17 11:50 Cardiac Monitoring [RC] . DIRECTED Oxygen Therapy [RC] PRN Sodium Chloride 0.9% [Saline Flush] 10 ml FLUSH ASDIRECTED PRN Peripheral IV Insertion Adult [OM.PC] Stat 02/03/17 11:51 EKG Documentation Completion [RC] STAT Peripheral IV Care [RC] . DIRECTED Chest 1V Frontal [CR] Stat - Assessment/Plan Last 24 Hours: My Active Orders 02/03/17 11:50 Cardiac Monitoring [RC] . DIRECTED Oxygen Therapy [RC] PRN Sodium Chloride 0.9% [Saline Flush] 10 ml FLUSH ASDIRECTED PRN Peripheral IV Insertion Adult [OM.PC] Stat 02/03/17 11:51 EKG Documentation Completion [RC] STAT Peripheral IV Care [RC] . DIRECTED Chest 1V Frontal [CR] Stat
--- NOTE | 2017-02-05 08:06 | CR ---
Chest: Portable view of the chest was obtained. Comparison: Prior chest x-ray of 02/27/16. Heart size and mediastinum are within normal limits. AICD is present. Lungs are clear but appear somewhat hyperinflated. Bony structures are grossly intact. Impression: 1. Lungs are somewhat hyperinflated raising the possibility of emphysematous change. Please correlate if patient is a smoker. 2. Nothing acute is seen on portable chest x-ray. Diagnostic code #2
== END 2017-02-03 13:04 | disposition home or self-care (01) ==
LOC: JD.ED 11:23
DX: R07.89 Other chest pain (principal); J06.9 Acute upper respiratory infection, unspecified; I10 Essential (primary) hypertension; F17.210 Nicotine dependence, cigarettes, uncomplicated; Z79.899 Other long term (current) drug therapy
CPT/HCPCS: 36415; 71010; 80053; 84484; 85025; 85379; 93005; 99285; G0480; J7050; 93010; 99283-25

== ENCOUNTER 2017-06-24 13:23 | Emergency (ER) | payer MEDICAID ==
[2017-06-24] MEDS ORDERED: Sodium Chloride 0.9% 1,000 ML IV ONE (14:06)
[2017-06-24] MEDS ORDERED: Sodium Chloride 0.9% 10 ML Syringe FLUSH PRN (14:09)
--- NOTE | 2017-06-24 14:14 | EDM.PDOC ---
<RobertKarely jones - Last Filed: 06/24/17 14:21> ED HPI GENERAL MEDICAL PROBLEM - General Chief Complaint: Chest Pain Stated Complaint: CHEST PAIN Time Seen by Provider: 06/24/17 13:28 Source of Information: Reports: Patient, Other (friend) History Limitations: Reports: No Limitations - History of Present Illness INITIAL COMMENTS - FREE TEXT/NARRATIVE: Patient is a 46 YO male who presents for chest pain. He states this started about 4-5 days ago and is located just lateral to his left nipple. He states that pushing on the area makes it worse. It is not worse with excretion. Nothing makes the pain better. It is constant, sharp pain. He states while getting ready in the morning he has to sit or he gets really dizzy. Every time he stands up he gets dizzy. He reports that he is dizzy sitting in the room now. He has been falling after standing. He reports cold sweats off and on. He has a pacemaker in place. He has not had any recent changes to his mediations. He is hypotensive today. He denies diarrhea, constipation, blood in the stool, urinary symptoms or blood in the urine. He denies fever, cough, shortness of breath. Left Chest Pain Score (Numeric/FACES): 8 - Related Data Allergies Allergy/AdvReac Type Severity Reaction Status Date / Time No Known Allergies Allergy Verified 06/24/17 13:35 Home Meds: Home Meds Clopidogrel [Plavix] 75 mg PO DAILY 06/08/15 [History] Isosorbide Mononitrate [Imdur] 30 mg PO DAILY 06/08/15 [History] Lisinopril [Prinivil] 2.5 mg PO DAILY 06/08/15 [History] Zolpidem [Ambien] 5 - 10 mg PO BEDTIME 06/08/15 [History] traZODone 50 - 100 mg PO BEDTIME 06/08/15 [History] Aspirin [Halfprin] 81 mg PO DAILY 02/27/16 [History] LORazepam 0.5 mg PO TID PRN 11/06/16 [History] Hydrocodone/Acetaminophen [Hydrocodon-Acetaminophen 5-325] 1 - 2 each PO Q6HR PRN #10 tablet 02/03/17 [Rx] Metoprolol Succinate [Toprol XL] 50 mg PO BID 02/03/17 [History] PARoxetine [Paxil] 20 mg PO DAILY 02/03/17 [History] atorvaSTATin [Lipitor] 20 mg PO BEDTIME 02/03/17 [History] Past Medical History HEENT History: Reports: Impaired Vision Other HEENT History: reading glasses Cardiovascular History: Reports: High Cholesterol, Hypertension, [place], Pacemaker, Stents Musculoskeletal History: Reports: Other (See Below) Other Musculoskeletal History: Right ankle fracture Neurological History: Reports: Head Trauma Psychiatric History: Reports: Addiction, Depression - Infectious Disease History Infectious Disease History: Reports: Chicken Pox - Past Surgical History Cardiovascular Surgical History: Reports: AICD, Coronary Artery Stent, Pacer Social & Family History - Family History Family Medical History: Noncontributory Cardiac: Reports: High Cholesterol, Hypertension, [place] OBGYN: Reports: - Tobacco Use Smoking Status *Q: Current Every Day Smoker Years of Tobacco use: 30 Packs/Tins Daily: 0.5 Used Tobacco, but Quit: No Second Hand Smoke Exposure: No - Caffeine Use Caffeine Use: Reports: Coffee - Alcohol Use Days Per Week of Alcohol Use: 7 Number of Drinks Per Day: 6 Total Drinks Per Week: 42 - Recreational Drug Use Recreational Drug Use: No ED ROS GENERAL - Review of Systems Review Of Systems: See Below Constitutional: Reports: Chills, Weakness, Fatigue HEENT: Reports: No Symptoms Respiratory: Reports: No Symptoms Cardiovascular: Reports: Chest Pain, Lightheadedness, Syncope GI/Abdominal: Reports: No Symptoms : Reports: No Symptoms Musculoskeletal: Reports: No Symptoms Skin: Reports: Bruising Neurological: Reports: Dizziness, Syncope, Weakness Psychiatric: Reports: No Symptoms ED EXAM, GENERAL - Physical Exam Exam: See Below Exam Limited By: No Limitations General Appearance: Alert, WD/WN, No Apparent Distress Eye Exam: Bilateral Eye: EOMI, PERRL Ear Exam: Bilateral Ear: Other (pale conjunctiva, mild scleral icterus) Throat/Mouth: Normal Inspection, Normal Teeth, Normal Gums Head: Atraumatic Respiratory/Chest: No Respiratory Distress, Lungs Clear, Normal Breath Sounds, Other (chest tender to palpation just lateral to the right nipple. There is a bruise in the area.) Cardiovascular: Normal Peripheral Pulses, No Edema, Other (pacemaker noted under the skin) GI/Abdominal: Normal Bowel Sounds, Soft, Non-Tender, No Organomegaly, No Mass Extremities: Normal Inspection, No Pedal Edema Neurological: Alert, Oriented, CN II-XII Intact, Normal Cognition, No Motor/ Sensory Deficits Psychiatric: Normal Affect, Normal Mood Skin Exam: Pallor, Other (multiple bruises on the right proximal arm, left proximal arm, left chest) Course - Vital Signs Last Recorded V/S: Last Vital Signs Temp 98.6 F 06/24/17 13:31 Pulse 86 06/24/17 13:31 Resp 18 06/24/17 13:31 BP 85/57 L 06/24/17 13:31 Pulse Ox 97 06/24/17 13:31 - Orders/Labs/Meds Orders: Active Orders 24 hr Category Date Time Status EKG 12 Lead [EKG Documentation Completion] [RC] STAT Care 06/24/17 13:40 Active Orthostatic Vital Signs [RC] ASDIRECTED Care 06/24/17 14:09 Active Peripheral IV Care [RC] . DIRECTED Care 06/24/17 14:09 Active Sodium Chloride 0.9% [Saline Flush] Med 06/24/17 14:09 Active 10 ml FLUSH ASDIRECTED PRN Peripheral IV Insertion Adult [OM.PC] Stat Oth 06/24/17 14:09 Ordered Medication Orders Sodium Chloride (Saline Flush) 10 ml FLUSH ASDIRECTED PRN PRN Reason: Keep Vein Open Last Admin: 06/24/17 14:15 Dose: 10 ml Labs: Laboratory Tests 06/24/17 06/24/17 Range/Units 13:40 13:40 WBC 8.59 (4.23-9.07) K/mm3 RBC 4.32 L (4.63-6.08) M/mm3 Hgb 13.7 (13.7-17.5) gm/L Hct 40.3 (40.1-51.0) % MCV 93.3 H (79.0-92.2) fl MCH 31.7 (25.7-32.2) pg MCHC 34.0 (32.2-35.5) g/dl RDW Std Deviation 41.5 (35.1-43.9) fL Plt Count 127 L (163-337) K/mm3 MPV 10.8 (9.4-12.3) fl Neutrophils % (Manual) 75 H (40-60) % Band Neutrophils % 0 (0-10) % Lymphocytes % (Manual) 19 L (20-40) % Atypical Lymphs % 0 % Monocytes % (Manual) 4 (2-10) % Eosinophils % (Manual) 2 (0.8-7.0) % Basophils % (Manual) 0 L (0.2-1.2) Platelet Estimate Decreased RBC Morph Comment Normal Sodium 135 L (136-145) mEq/L Potassium 3.8 (3.5-5.1) mEq/L Chloride 100 (98-107) mEq/L Carbon Dioxide 24 (21-32) mEq/L Anion Gap 14.8 (5-15) BUN 23 H (7-18) mg/dL Creatinine 1.1 (0.7-1.3) mg/dL Est Cr Clr Drug Dosing 76.78 mL/min Estimated GFR (MDRD) > 60 (>60) mL/min BUN/Creatinine Ratio 20.9 H (14-18) Glucose 106 (74-106) mg/dL Calcium 9.1 (8.5-10.1) mg/dL Magnesium 1.7 L (1.8-2.4) mg/dl Total Bilirubin 0.8 (0.2-1.0) mg/dL AST 31 (15-37) U/L ALT 54 (16-63) U/L Alkaline Phosphatase 87 (46-116) U/L Troponin I < 0.017 (0.00-0.056) ng/mL C-Reactive Protein < 0.2 (<1.0) mg/dL Total Protein 7.1 (6.4-8.2) g/dl Albumin 3.9 (3.4-5.0) g/dl Globulin 3.2 gm/dL Albumin/Globulin Ratio 1.2 (1-2) Lipase 176 (73-393) U/L Meds: Medications Generic Name Dose Route Start Last Admin Trade Name Freq PRN Reason Stop Dose Admin Sodium Chloride 10 ml 06/24/17 14:09 06/24/17 14:15 Saline Flush FLUSH 10 ml ASDIRECTED PRN Administration Keep Vein Open Discontinued Medications Generic Name Dose Route Start Last Admin Trade Name Freq PRN Reason Stop Dose Admin Sodium Chloride 1,000 mls @ 999 mls/hr 06/24/17 14:06 06/24/17 14:15 Normal Saline IV 04/18/18 15:06 999 mls/hr ONETIME ONE Administration Sodium Chloride 500 mls @ 1,000 mls/hr 06/24/17 15:22 06/24/17 15:27 Normal Saline IV 06/24/17 15:51 1,000 mls/hr .BOLUS ONE Administration Departure - Departure Disposition: Home, Self-Care 01 Clinical Impression: Chest wall pain Referrals: Jesse Pedroza MD [Primary Care Provider] - 1 Week Forms: ED Department Discharge Additional Instructions: Stop taking the isosorbide mononitrate until you see Dr Pedroza. If that does not help in a couple days take half of the half pill metoprolol 2 times per day. Drink plenty of water. Please return if you are worse. Make sure when you stand up after sitting or laying down you take your time so your body has time to adjust. The metoprolol affects that natural response your body has when you stand up. - My Orders Last 24 Hours: My Active Orders 06/24/17 13:40 EKG 12 Lead [EKG Documentation Completion] [RC] STAT - Assessment/Plan Last 24 Hours: My Active Orders 06/24/17 13:40 EKG 12 Lead [EKG Documentation Completion] [RC] STAT <Brennon Ortega - Last Filed: 06/24/17 16:11> ED HPI GENERAL MEDICAL PROBLEM - General Source of Information: Reports: Patient, Other History Limitations: Reports: No Limitations - History of Present Illness Onset: Gradual Duration: Day(s): (4) Location: Reports: Chest Quality: Reports: Sharp Severity: Moderate Worsens with: Reports: Breathing Associated Symptoms: Reports: No Other Symptoms, Chest Pain. Denies: Headaches , Nausea/Vomiting, Shortness of Breath ED ROS GENERAL - Review of Systems Review Of Systems: See Below Constitutional: Reports: Chills, Weakness, Fatigue HEENT: Reports: No Symptoms Respiratory: Reports: No Symptoms Cardiovascular: Reports: Chest Pain, Lightheadedness, Syncope GI/Abdominal: Reports: No Symptoms : Reports: No Symptoms Musculoskeletal: Reports: No Symptoms Skin: Reports: Bruising Neurological: Reports: Dizziness, Syncope, Weakness Psychiatric: Reports: No Symptoms ED EXAM, GENERAL - Physical Exam Exam: See Below Exam Limited By: No Limitations General Appearance: Alert, WD/WN, No Apparent Distress Eye Exam: Bilateral Eye: EOMI, PERRL Ears: Normal External Exam Ear Exam: Bilateral Ear: Other Throat/Mouth: Normal Inspection, Normal Teeth, Normal Gums Head: Atraumatic Neck: Normal Inspection Respiratory/Chest: No Respiratory Distress, Lungs Clear, Normal Breath Sounds, Other Cardiovascular: Normal Peripheral Pulses, No Edema, Other GI/Abdominal: Normal Bowel Sounds, Soft, Non-Tender, No Organomegaly, No Mass Extremities: Normal Inspection, No Pedal Edema Neurological: Alert, Oriented, CN II-XII Intact, Normal Cognition, No Motor/ Sensory Deficits Course - Re-Assessments/Exams Free Text/Narrative Re-Assessment/Exam: 06/24/17 15:55 I ordered an IV NS 1L bolus, EKG, CXR and labs. His CBC looks good. His Na was low at 135. His magnesium was a little low at 1.7. His troponin was negative. His CRP was negative. His lipase was normal. He is feeling better. It appears to be chest wall pain. His blood pressure was low when he was here. It was as low as 75 systolic. After a liter and a half his pressure is better. I will have him stop the isosorbide mononitrate and if that does not help I will have him take half of his 50mg metoprolol. Departure - Departure Time of Disposition: 16:10 Condition: Good
--- NOTE | 2017-06-24 14:48 | CR ---
Chest: Portable view of the chest was obtained. Comparison: Previous chest x-ray of 02/03/17. Heart size and mediastinum are within normal limits for portable technique. AICD noted. Lungs are clear. Bony structures are grossly intact. Impression: 1. Nothing acute is seen on portable chest x-ray. Diagnostic code #2
[2017-06-24] MEDS ORDERED: Sodium Chloride 0.9% 500 ML IV ONE (15:22)
[2017-06-24 16:45] VITALS: BP 95/51
== END 2017-06-24 16:25 | disposition home or self-care (01) ==
LOC: JD.ED 13:23
DX: R07.89 Other chest pain (principal); I95.9 Hypotension, unspecified; I10 Essential (primary) hypertension; E78.00 Pure hypercholesterolemia, unspecified; F17.210 Nicotine dependence, cigarettes, uncomplicated; Z79.899 Other long term (current) drug therapy; Z79.82 Long term (current) use of aspirin
CPT/HCPCS: 36415; 71045; 80053; 83690; 83735; 84484; 85025; 86140; 93005; 96360; 96361; 99285; J7040; J7050; 93010; 99283-25

== ENCOUNTER 2017-06-25 19:34 | Emergency (ER) | payer MEDICAID ==
[2017-06-25 19:54] VITALS: BP 123/78
[2017-06-25] MEDS ORDERED: Sodium Chloride 0.9% 10 ML Syringe FLUSH PRN (20:27)
--- NOTE | 2017-06-25 20:32 | EDM.PDOC ---
ED HPI GENERAL MEDICAL PROBLEM - General Chief Complaint: Cardiovascular Problem Stated Complaint: POSS BLOOD CLOT PER DR DELACRUZ Time Seen by Provider: 06/25/17 20:10 Source of Information: Reports: Patient History Limitations: Reports: No Limitations - History of Present Illness INITIAL COMMENTS - FREE TEXT/NARRATIVE: 46-year-old male presents to the ED after seeing Dr. delacruz clinic later this afternoon. He been certainly seen through the ED earlier this morning because of frequent falls and he was found to be quite hypotensive. He was treated with IV fluids at a full cardiac and Laboratory workup with negative cardiac markers. It was felt that his blood pressure was too low likely due to Imdur -- long-acting nitroglycerin and he was therefore discontinued. Of note the patient has known severe coronary disease. He has a pacemaker. Patient states he 's been getting really dizzy lightheaded and falling frequently. He has multiple bruises on his arms and legs from falling. When he is at the clinic today he had a D-dimer done by Dr. Delacruz and it did return is mildly elevated at 0.73. It is likely elevated due to the multiple bruises from falling. However patient is sent to the ED for further evaluation in particular CT pulmonary angiogram due to presentation of hypotension left precordial chest pain. Of note the left precordial chest pain is well localized to the fourth and fifth left ribs very tender to touch compatible with viral injury or periostitis involving the fourth rib. He does get occasional pain rating down his left medial arm the costochondral nerve distribution. states that he bruises easily. He is on Plavix and aspirin due to multiple stents in his coronary arteries. States he hasn't missed any of his dosages. He therefore bruises very easily. States he's had a chronic cough from chronic nasal congestion. He is known to have fractured his nose multiple times from falling. 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 He no longer drinks alcohol. Onset: Gradual (Has been having left precordial chest discomfort for the last 2- 3 days. Reports chronic cough due to postnasal drip.) Onset Date: 06/23/17 Duration: Day(s): Location: Reports: Chest (Left anterior chest wall pain. He's able to localize the pain quite well. But he does have a mild associated cough. He has known severe coronary disease. He has a pacemaker left upper anterior chest.) Quality: Reports: Ache, Sharp, Stabbing, Other (Occasionally radiates down the medial aspect. Left arm to his elbow and the costochondral nerve distribution.) Severity: Moderate Improves with: Reports: None Worsens with: Reports: None Context: Denies: Activity, Exercise, Lifting, Sick Contact, Trauma, Other Associated Symptoms: Reports: Cough, cough w sputum. Denies: No Other Symptoms , Confusion, Chest Pain (Chronic due to postnasal drip.), Diaphoresis, Fever/ Chills, Headaches, Loss of Appetite, Malaise Treatments COSTUMER ASSISTANT: Reports: Other (see below) (Medication changes today were to be discontinuation of his Imdur.) Chest Pain Score (Numeric/FACES): 8 - Related Data Allergies Allergy/AdvReac Type Severity Reaction Status Date / Time No Known Allergies Allergy Verified 06/25/17 19:48 Home Meds: Home Meds Clopidogrel [Plavix] 75 mg PO DAILY 06/08/15 [History] Isosorbide Mononitrate [Imdur] 30 mg PO DAILY 06/08/15 [History] Lisinopril [Prinivil] 2.5 mg PO DAILY 06/08/15 [History] Zolpidem [Ambien] 5 - 10 mg PO BEDTIME 06/08/15 [History] traZODone 50 - 100 mg PO BEDTIME 06/08/15 [History] Aspirin [Halfprin] 81 mg PO DAILY 02/27/16 [History] LORazepam 0.5 mg PO TID PRN 11/06/16 [History] Hydrocodone/Acetaminophen [Hydrocodon-Acetaminophen 5-325] 1 - 2 each PO Q6HR PRN #10 tablet 02/03/17 [Rx] Metoprolol Succinate [Toprol XL] 50 mg PO BID 02/03/17 [History] PARoxetine [Paxil] 20 mg PO DAILY 02/03/17 [History] atorvaSTATin [Lipitor] 20 mg PO BEDTIME 02/03/17 [History] Past Medical History HEENT History: Reports: Impaired Vision Other HEENT History: reading glasses Cardiovascular History: Reports: High Cholesterol, Hypertension, [place], Pacemaker, Stents Musculoskeletal History: Reports: Other (See Below) Other Musculoskeletal History: Right ankle fracture Neurological History: Reports: Head Trauma Psychiatric History: Reports: Addiction, Depression - Infectious Disease History Infectious Disease History: Reports: Chicken Pox - Past Surgical History Cardiovascular Surgical History: Reports: AICD, Coronary Artery Stent, Pacer Social & Family History - Family History Family Medical History: Noncontributory Cardiac: Reports: High Cholesterol, Hypertension, [place] OBGYN: Reports: - Tobacco Use Smoking Status *Q: Current Every Day Smoker Years of Tobacco use: 25 Packs/Tins Daily: 0.4 Used Tobacco, but Quit: No Second Hand Smoke Exposure: No - Caffeine Use Caffeine Use: Reports: Coffee - Alcohol Use Days Per Week of Alcohol Use: 7 Number of Drinks Per Day: 6 Total Drinks Per Week: 42 - Recreational Drug Use Recreational Drug Use: No - Living Situation & Occupation Living situation: Reports: Single Occupation: Disabled ED ROS GENERAL - Review of Systems Review Of Systems: See Below Constitutional: Reports: Fatigue, Other HEENT: Reports: Sinus Problem (Chronically due to severe fractures of his nose. Chronic postnasal drip), Other. Denies: Glasses, Hearing Loss, Nosebleed Respiratory: Reports: Shortness of Breath (Occasionally.), Cough ( cough), Sputum. Denies: Wheezing, Pleuritic Chest Pain ([place] to be due to postnasal drip.) Cardiovascular: Reports: Chest Pain, Blood Pressure Problem (Left precordial chest pain which is been addressed earlier today. Her pressure was running quite low this morning but it is now returned to normal values at 115/80.), Dyspnea on Exertion, Lightheadedness. Denies: Edema, Orthopnea (Lightheaded dizzy with frequent falls lately.), Palpitations, PND, Syncope, Other Endocrine: Reports: Fatigue GI/Abdominal: Reports: No Symptoms : Reports: No Symptoms Musculoskeletal: Reports: Other (Falls a lot as he has severe cerebellar ataxia. ) Skin: Reports: Bruising (Bruises extremely easily. He shows me bruises on both arms and legs from frequent falls.) Neurological: Reports: Difficulty Walking (Due to severe ataxia thought to be due to alcohol-induced cerebellar ataxia.) Psychiatric: Reports: No Symptoms Hematologic/Lymphatic: Reports: No Symptoms, Easy Bleeding, Easy Bruising (Is on Plavix and aspirin.) Immunologic: Reports: No Symptoms ED EXAM, GENERAL - Physical Exam Exam: See Below Exam Limited By: Uncooperative General Appearance: Alert, WD/WN, No Apparent Distress Eye Exam: Bilateral Eye: Normal Inspection Nose: Nasal Drainage, Other (Patient has a right-sided nasal polyp. He has severe deviated nasal septum to the left side with occlusion of the left naris. There is no doubt that he likely has chronic underlying sinusitis. This is contributing to chronic postnasal drip.) Throat/Mouth: Normal Inspection ( He can barely breathe through his nose at all. ), Normal Lips, Normal Teeth Head: Atraumatic, Normocephalic Neck: Normal Inspection, Supple, Non-Tender, Full Range of Motion. No: Lymphadenopathy (L), Lymphadenopathy (R) Respiratory/Chest: No Respiratory Distress, Lungs Clear, Normal Breath Sounds, No Accessory Muscle Use Cardiovascular: Normal Peripheral Pulses, Regular Rate, Rhythm, No Edema, No Gallop, No Murmur, No Rub GI/Abdominal: Normal Bowel Sounds, Soft, Non-Tender, No Organomegaly Extremities: Normal Range of Motion, Non-Tender, No Pedal Edema, Other (He has bruises right upper arm left upper arm and anterior chest as well as left hip.) Neurological: Other (Severe ataxia particularly appreciated on finger to nose and heel to [place] movements. He walks with a wide-based ataxic gait. Apparently this has been investigated by neurology in the past and it is felt ) Psychiatric: Normal Affect, Normal Mood Skin Exam: Warm, Dry, Intact, Normal Color, No Rash, Ecchymosis (Scattered right upper arm left upper anterior shoulder left hip right thigh) Course - Vital Signs Last Recorded V/S: Last Vital Signs Temp 37.1 C 06/25/17 19:48 Pulse 85 06/25/17 19:48 Resp BP 123/78 06/25/17 19:48 Pulse Ox 98 06/25/17 19:48 - Orders/Labs/Meds Orders: Active Orders 24 hr Category Date Time Status EKG Documentation Completion [RC] URGENT Care 06/25/17 20:00 Active Peripheral IV Care [RC] . DIRECTED Care 06/25/17 20:27 Active Chest PE [Ang Chest] [CT] Stat Exams 06/25/17 20:26 Taken Sodium Chloride 0.9% [Saline Flush] Med 06/25/17 20:27 Active 10 ml FLUSH ASDIRECTED PRN Peripheral IV Insertion Adult [OM.PC] Stat Oth 06/25/17 20:27 Ordered Medication Orders Sodium Chloride (Saline Flush) 10 ml FLUSH ASDIRECTED PRN PRN Reason: Keep Vein Open Last Admin: 06/25/17 20:30 Dose: 10 ml Meds: Medications Generic Name Dose Route Start Last Admin Trade Name Chika PRN Reason Stop Dose Admin Sodium Chloride 10 ml 06/25/17 20:27 06/25/17 20:30 Saline Flush FLUSH 10 ml ASDIRECTED PRN Administration Keep Vein Open - Radiology Interpretation Free Text/Narrative:: 46-year-old male presents to the ED with left precordial chest pain which was seen through the ED earlier today. He presented because of dizziness lightheadedness and feeling like he is going to fall that time. Dr. Kuhn worked him up and identify that he was significant leak orthostatically hypotensive. This filled the Imdur is contributing to this. He is of small stature and Imdur is being used for bad coronary disease. He also has a component of severe cerebellar ataxia which is felt to be alcohol induced he no longer drinks alcohol. This is contributing to his frequent falls as well. Patient has multiple bruises falling. He did see Dr. Madrid afternoon in clinic in part of the investigations was [facility] for workup his troponin was rechecked and was normal but his d-dimer came back at 0.73 mildly elevated. This likely elevated due to his falls and frequent bruises. Of note the patient is on Plavix and aspirin as well. Patient is sent to the ED for CT pulmonary angiogram. I feel the risks of him having up. He is extremely low. Patient so advised. CT pulmonary and gram will be done. In regards to his nose side going to suggest that he picker and packer some [id number] and Nasacort in the hopes of reducing the size and swelling of his right nasal polyp and may be some of his postnasal drip. Ideally he needs ENT and nasal septoplasty but this will not be done while he is on Plavix. - Re-Assessments/Exams Free Text/Narrative Re-Assessment/Exam: 06/25/17 21:46 CT pulmonary angiogram is within normal limits showing no evidence of pulmonary emboli. Visualized lung tomas are clear without any pleural effusion. Patient so advised. He will be discharged home to picker and packer some Nasacort AQ [id number] and use to each side of his nares at bedtime to try and alleviate some of the nasal polyposis and postnasal drip. Just purchasing high-dose B12 1000 g per day that may or may not help with some of his cerebellar ataxia. Departure - Departure Time of Disposition: 21:47 Disposition: Home, Self-Care 01 Condition: Fair Clinical Impression: Non-cardiac chest pain, Anterior chest wall pain, Postnasal drip, Acquired deviated nasal septum Allergic rhinitis Qualifiers: Allergic rhinitis trigger: unspecified Allergic rhinitis seasonality: non- seasonal Qualified Code(s): J30.89 - Other allergic rhinitis Referrals: Jesse Delacruz MD [Primary Care Provider] - Forms: ED Department Discharge Additional Instructions: Evaluation the emergent tonight to rule out pulmonary embolism due to elevated d -dimer identified by Dr. DELACRUZ at the clinic today. You have been previously seen this morning through the ED and identified to have significant chest wall tenderness in ribs 45 on the left chest wall. This indicates a moderate degree of inflammation of the lining around the ribs. This is usually viral in origin often follows an upper respiratory tract infection and goes away with time. Usually treated with anti-inflammatories which you cannot take due to being on Plavix. Can use Tylenol as needed. You're sent to the ED primarily to have a CT pulmonary and gram done to rule out any blood clots in your lungs. This was due to the finding of a elevated d-dimer at the clinic today. D-dimer was slightly elevated and is likely due to the bruises that you have sustained from falling recently. CT pulmonary and gram was carried out and was found to be within normal limits revealing no evidence of any blood clots in your lungs. In regards to your nose you have a nasal polyp on the right side due to allergies which is been there for many years and is producing excessive mucus running down the back of her throat which we call postnasal drip. This is the reason for chronic cough and sputum production. You may purchase some Nasacort AQ nasal spray [id number] and use 2 squirts to each side of your nose at bedtime in an effort to reduce the swelling and the amount of mucus production from the nasal polyp. Unfortunately area a severe deviated nasal septum to the left side from previous fractured nose which is occluding the left nose completely. The only way to fix this is surgical and this cannot be done while you are on Plavix. In regards to your cerebellar ataxia I would suggest trying high-dose vitamin B12 1000 g per day to see if it helps alleviate some of the off balance feelings. Suggest taking this for a minimum of 6 months to identify whether or not it helps or not. It certainly can't hurt anything. - My Orders Last 24 Hours: My Active Orders 06/25/17 20:00 EKG Documentation Completion [RC] URGENT 06/25/17 20:26 Chest PE [Ang Chest] [CT] Stat 06/25/17 20:27 Peripheral IV Care [RC] . DIRECTED Sodium Chloride 0.9% [Saline Flush] 10 ml FLUSH ASDIRECTED PRN Peripheral IV Insertion Adult [OM.PC] Stat - Assessment/Plan Last 24 Hours: My Active Orders 06/25/17 20:00 EKG Documentation Completion [RC] URGENT 06/25/17 20:26 Chest PE [Ang Chest] [CT] Stat 06/25/17 20:27 Peripheral IV Care [RC] . DIRECTED Sodium Chloride 0.9% [Saline Flush] 10 ml FLUSH ASDIRECTED PRN Peripheral IV Insertion Adult [OM.PC] Stat
--- NOTE | 2017-06-26 08:06 | CT ---
CT chest Technique: Multiple axial sections were obtained through the chest. Intravenous contrast was utilized. Study has been performed as a pulmonary angiogram protocol. Comparison: Prior chest x-ray performed on 06/24/[address] chest dated 09/22/15. Findings: Pulmonary arteries are well-opacified. No filling defects are seen to indicate pulmonary embolism. Artifact is noted from AICD. Coronary artery stent is present. 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 No pericardial effusion is seen. Heart is somewhat enlarged. Emphysematous change is seen within both lungs. Lungs otherwise are clear with no acute parenchymal change. Bone window settings were reviewed which show an old right anterior mid chest rib fracture which appears healed. Impression: 1. Incidental findings. 2. No findings of pulmonary embolism. 3. Nothing acute is seen on CT study of the chest. Diagnostic code #2 I agree with preliminary report issued by [facility] ([facility] preliminary report dictated on 06/25/17, 10:50 PM Central Time)
== END 2017-06-25 22:15 | disposition home or self-care (01) ==
LOC: JD.ED 19:34
DX: R07.89 Other chest pain (principal); R09.82 Postnasal drip; J34.2 Deviated nasal septum; J30.89 Other allergic rhinitis; E78.00 Pure hypercholesterolemia, unspecified; I10 Essential (primary) hypertension; I25.2 Old myocardial infarction; F17.210 Nicotine dependence, cigarettes, uncomplicated; Z79.899 Other long term (current) drug therapy; Z79.82 Long term (current) use of aspirin
CPT/HCPCS: 71275; 93005; 99284; J7050; 93010

== ENCOUNTER 2018-04-13 04:20 | Emergency (ER) | payer MEDICAID ==
--- NOTE | 2018-04-13 04:55 | EDM.PDOC ---
ED HPI GENERAL MEDICAL PROBLEM - General Chief Complaint: Upper Extremity Injury/Pain Stated Complaint: [facility] Time Seen by Provider: 04/13/18 04:35 Source of Information: Reports: Patient, RN Notes Reviewed - History of Present Illness INITIAL COMMENTS - FREE TEXT/NARRATIVE: 47-year-old male has been brought here by [facility] after having fallen sometime early this morning at his apartment or house. She came down on his left hand and also struck his nose and forehead on the floor. He is not aware of any LOC. He drinks beer, states he has had "half a beer" but presents quite intoxicated having drank obviously much more than that. Denies headache at this time. There has been no bleeding from his nose. No major neck back chest or other obvious pain or injury. Left Hand Pain Score (Numeric/FACES): 9 - Related Data Allergies Allergy/AdvReac Type Severity Reaction Status Date / Time No Known Allergies Allergy Verified 04/13/18 04:28 Home Meds: Home Meds Clopidogrel [Plavix] 75 mg PO DAILY 06/08/15 [History] Isosorbide Mononitrate [Imdur] 30 mg PO DAILY 06/08/15 [History] Lisinopril [Prinivil] 2.5 mg PO DAILY 06/08/15 [History] Zolpidem [Ambien] 5 - 10 mg PO BEDTIME 06/08/15 [History] traZODone 50 - 100 mg PO BEDTIME 06/08/15 [History] Aspirin [Halfprin] 81 mg PO DAILY 02/27/16 [History] LORazepam 0.5 mg PO TID PRN 11/06/16 [History] Hydrocodone/Acetaminophen [Hydrocodon-Acetaminophen 5-325] 1 - 2 each PO Q6HR PRN #10 tablet 02/03/17 [Rx] Metoprolol Succinate [Toprol XL] 50 mg PO BID 02/03/17 [History] PARoxetine [Paxil] 20 mg PO DAILY 02/03/17 [History] atorvaSTATin [Lipitor] 20 mg PO BEDTIME 02/03/17 [History] Past Medical History HEENT History: Reports: Impaired Vision Other HEENT History: reading glasses Cardiovascular History: Reports: High Cholesterol, Hypertension, [place], Pacemaker, Stents Musculoskeletal History: Reports: Other (See Below) Other Musculoskeletal History: Right ankle fracture Neurological History: Reports: Head Trauma Psychiatric History: Reports: Addiction, Depression - Infectious Disease History Infectious Disease History: Reports: Chicken Pox - Past Surgical History Cardiovascular Surgical History: Reports: AICD, Coronary Artery Stent, Pacer Social & Family History - Family History Family Medical History: Noncontributory Cardiac: Reports: High Cholesterol, Hypertension, [place] OBGYN: Reports: - Tobacco Use Smoking Status *Q: Current Every Day Smoker Years of Tobacco use: 20 Packs/Tins Daily: 0.3 - Caffeine Use Caffeine Use: Reports: Coffee, Soda - Alcohol Use Date of Last Drink: 04/12/18 - Recreational Drug Use Recreational Drug Use: No - Living Situation & Occupation Living situation: Reports: Single Occupation: Disabled Review of Systems - Review of Systems Review Of Systems: See Below Constitutional: Reports: No Symptoms Eyes: Reports: No Symptoms Ears: Reports: No Symptoms Nose: Reports: Pain (He has pain and swelling of the nose). Denies: Epistaxis Mouth/Throat: Reports: No Symptoms Respiratory: Denies: Shortness of Breath Cardiovascular: Denies: Chest Pain GI/Abdominal: Denies: Abdominal Pain, Nausea, Vomiting Musculoskeletal: Reports: Joint Pain (Left hand). Denies: Shoulder Pain, Arm Pain, Back Pain Skin: Denies: Bruising Neurological: Denies: Headache, Trouble Speaking ED EXAM, GENERAL - Physical Exam Exam: See Below General Appearance: Alert, No Apparent Distress, Other (Happily intoxicated) Eye Exam: Bilateral Eye: PERRL Head: Facial Swelling (There is mild swelling, moderate tenderness of the nose and also visible deformity, no active bleeding no evidence of prior bleeding), Other (There is abrasion of the right upper forehead) Respiratory/Chest: No Respiratory Distress, Lungs Clear Cardiovascular: Regular Rate, Rhythm Extremities: Joint Swelling (There is diffuse swelling dorsal aspect of left hand with localized tenderness, good finger range of motion, wrist, forearm, upper arm nontender) Skin Exam: Warm, Dry, Normal Color ED TRAUMA EXTREMITY PROCEDURES - Splinting Left Upper Extremity Splint Site: Left hand wrist and forearm Pre-Procedure NV Status: Normal Post-Procedure NV Status: Normal Splint Material: Fiberglass Splint Design: Volar Applied & Form Fitted By: Provider Provider Post-Splint Application NV Check: NV Status Normal Complications: No Course - Vital Signs Last Recorded V/S: Last Vital Signs Temp 98.9 F 04/13/18 06:05 Pulse 76 04/13/18 06:05 Resp 16 04/13/18 06:05 BP 134/74 04/13/18 06:05 Pulse Ox 92 L 04/13/18 06:05 - Re-Assessments/Exams Free Text/Narrative Re-Assessment/Exam: 04/13/18 05:30 X-rays of the hand do show a nondisplaced fracture of the navicular left wrist. No visible fracture of the hand. Departure - Departure Time of Disposition: 05:27 Disposition: Home, Self-Care 01 Condition: Fair Clinical Impression: Fall Qualifiers: Encounter type: initial encounter Qualified Code(s): W19.XXXA - Unspecified fall, initial encounter Fx navicular, wrist-closed Qualifiers: Encounter type: initial encounter Scaphoid bone location: unspecified portion of scaphoid Fracture alignment: nondisplaced Laterality: left Qualified Code(s) : S62.002A - Unspecified fracture of navicular [scaphoid] bone of left wrist, initial encounter for closed fracture - Discharge Information Instructions: Tarsal Navicular Fracture Forms: ED Department Discharge Additional Instructions: X-rays show that you do have a fracture of the navicular bone of your left wrist , keep wrist splint on for protection. There is swelling of your left wrist and hand so keep wrist and hand elevated as much as possible, use some ice packs intermittently today and for the next couple of days. See Dr. Sanches, Orthopedist this next or Thursday 2-3 days from now. Call [phone] for appointment. Be careful of your alcohol intake. Avoid further fall or injury.
[2018-04-13 06:12] VITALS: BP 134/74
--- NOTE | 2018-04-13 08:51 | CR ---
Nasal bone: Three views of the nasal bone were obtained. Comparison: No previous nasal bone exam. Slight deformity of the nasal bone is seen compatible with old healed fracture. No acute fracture is seen. Moderate to severe mucosal thickening is seen within the right maxillary sinus. Impression: 1. Mucosal thickening within the right maxillary sinus. Uncertain if this is acute or chronic. 2. Evidence of old healed nasal bone fracture. No acute fracture is seen. Diagnostic code #2
--- NOTE | 2018-04-13 08:51 | CR ---
Left hand: Four views of the left hand were obtained. Comparison: No prior hand exam is available. Deformity of the fifth metacarpal is seen compatible with old healed injury. Bony structures are osteopenic. Joint spaces are fairly well-preserved. Navicular fracture is seen. No additional fracture is appreciated. Osteopenia is noted. Soft tissue swelling also present. Impression: 1. Navicular fracture. Other incidental findings. Diagnostic code #3
== END 2018-04-13 06:09 | disposition home or self-care (01) ==
LOC: JD.ED 04:20
DX: S62.002A Unspecified fracture of navicular [scaphoid] bone of left wrist, initial encounter for closed fracture (principal); Z79.01 Long term (current) use of anticoagulants; Z79.899 Other long term (current) drug therapy; Z79.82 Long term (current) use of aspirin; W18.39XA Other fall on same level, initial encounter
CPT/HCPCS: 29125; 70160; 70160-26; 73130-26-LT; 73130-LT; 99284-25

== ENCOUNTER 2018-04-14 12:50 | Emergency (ER) | payer MEDICAID ==
--- NOTE | 2018-04-14 12:59 | EDM.PDOC ---
ED HPI GENERAL MEDICAL PROBLEM - General Chief Complaint: Upper Extremity Injury/Pain Stated Complaint: [facility] Time Seen by Provider: 04/14/18 12:59 Source of Information: Reports: Patient, RN Notes Reviewed - History of Present Illness INITIAL COMMENTS - FREE TEXT/NARRATIVE: 47-year-old male returns to ED by ambulance with left wrist pain. He fell early yesterday morning, was seen here in the ED, found to have left navicular fracture. Wrist splint was applied. He was intoxicated so pain medication was not prescribed. States the wrist was hurting a lot this morning, he felt the splint was too tight and therefore did take the splint off. With the splint off he is having more wrist pain. He also does admit to having "a few sips of beer this morning". There's been no further fall or injury. He has not yet called for follow-up or throat appointment. Left Hand Pain Score (Numeric/FACES): 8 - Related Data Allergies Allergy/AdvReac Type Severity Reaction Status Date / Time No Known Allergies Allergy Verified 04/13/18 04:28 Home Meds: Home Meds Clopidogrel [Plavix] 75 mg PO DAILY 06/08/15 [History] Isosorbide Mononitrate [Imdur] 30 mg PO DAILY 06/08/15 [History] Lisinopril [Prinivil] 2.5 mg PO DAILY 06/08/15 [History] Zolpidem [Ambien] 5 - 10 mg PO BEDTIME 06/08/15 [History] traZODone 50 - 100 mg PO BEDTIME 06/08/15 [History] Aspirin [Halfprin] 81 mg PO DAILY 02/27/16 [History] LORazepam 0.5 mg PO TID PRN 11/06/16 [History] Hydrocodone/Acetaminophen [Hydrocodon-Acetaminophen 5-325] 1 - 2 each PO Q6HR PRN #10 tablet 02/03/17 [Rx] Metoprolol Succinate [Toprol XL] 50 mg PO BID 02/03/17 [History] PARoxetine [Paxil] 20 mg PO DAILY 02/03/17 [History] atorvaSTATin [Lipitor] 20 mg PO BEDTIME 02/03/17 [History] Past Medical History HEENT History: Reports: Impaired Vision Other HEENT History: reading glasses Cardiovascular History: Reports: High Cholesterol, Hypertension, MD, Pacemaker, Stents Musculoskeletal History: Reports: Other (See Below) Other Musculoskeletal History: Right ankle fracture Neurological History: Reports: Head Trauma Psychiatric History: Reports: Addiction, Depression - Infectious Disease History Infectious Disease History: Reports: Chicken Pox - Past Surgical History Cardiovascular Surgical History: Reports: AICD, Coronary Artery Stent, Pacer Social & Family History - Family History Family Medical History: Noncontributory Cardiac: Reports: High Cholesterol, Hypertension, MD OBGYN: Reports: - Caffeine Use Caffeine Use: Reports: Coffee, Soda - Living Situation & Occupation Living situation: Reports: Single Occupation: Disabled Review of Systems - Review of Systems Review Of Systems: See Below Constitutional: Reports: No Symptoms Eyes: Reports: No Symptoms Mouth/Throat: Reports: No Symptoms Respiratory: Denies: Shortness of Breath Cardiovascular: Denies: Chest Pain GI/Abdominal: Denies: Nausea, Vomiting Musculoskeletal: Reports: Joint Pain (Left wrist) Skin: Reports: No Symptoms Neurological: Denies: Numbness, Tingling ED EXAM, GENERAL - Physical Exam Exam: See Below General Appearance: Alert, Mild Distress Head: Atraumatic Neck: Supple Respiratory/Chest: No Respiratory Distress Extremities: Joint Swelling (There is mild swelling of the left wrist and hand, no visible deformity tenderness dorsal aspects of wrist base of thumb), Other ( Swelling of wrist and hand is less than what he presented with yesterday morning.) Neurological: No Motor/Sensory Deficits Skin Exam: Warm, Dry, Normal Color ED TRAUMA EXTREMITY PROCEDURES - Splinting Left Upper Extremity Splint Site: Left hand wrist forearm Pre-Procedure NV Status: Normal Post-Procedure NV Status: Normal Splint Material: Fiberglass (Patient had taken splint off that had been applied prior visit, Oler splint reapplied left hand wrist and forearm. Patient tolerated this well.) Splint Design: Volar Course - Vital Signs Last Recorded V/S: Last Vital Signs Temp 98.0 F 04/14/18 12:58 Pulse 108 H 04/14/18 12:58 Resp 20 04/14/18 12:58 BP 109/98 H 04/14/18 12:58 Pulse Ox 93 L 04/14/18 12:58 - Re-Assessments/Exams Free Text/Narrative Re-Assessment/Exam: 04/14/18 13:23 Short arm wrist splint reapplied. We are going to call see if we can get him an Ortho appointment for later this week. We'll plan to prescribe a few hydrocodone. I talked to the patient about taking a half tablet every 6-8 hours if needed for severe pain and to be very careful of keeping his alcohol intake very limited when taking the pain medication. We also did call and get him an appointment with Dr. Sanches, orthopedist for Thursday. Departure - Departure Time of Disposition: 13:45 Disposition: Home, Self-Care 01 Condition: Fair Clinical Impression: Wrist fracture, left Qualifiers: Encounter type: subsequent encounter Fracture type: closed - Discharge Information Instructions: Wrist Fracture Treated With Immobilization, [id number] Referrals: Jesse Pedroza MD [Primary Care Provider] - Forms: ED Department Discharge Additional Instructions: Continue with ice packs and elevation to help get the swelling down, keep the wrist splint on to help keep your hand and wrist protected. You may take one half tablet hydrocodone every 6-8 hours if needed for severe pain. When taking the pain medication he needs to be very careful to not drink much alcohol. Avoid further injury. An appointment has been made for you to see Dr. Sanches , Orthopedist at our [facility] this Thursday 2 days from now 7:45 AM. It is extremely important that you make that appointment. His office number is [phone] if you have any questions.
[2018-04-14 13:01] VITALS: BP 109/98
== END 2018-04-14 13:50 | disposition home or self-care (01) ==
LOC: JD.ED 12:50
DX: S62.102D Fracture of unspecified carpal bone, left wrist, subsequent encounter for fracture with routine healing (principal); E78.00 Pure hypercholesterolemia, unspecified; I10 Essential (primary) hypertension; F17.210 Nicotine dependence, cigarettes, uncomplicated; I25.2 Old myocardial infarction; Z79.01 Long term (current) use of anticoagulants; Z79.899 Other long term (current) drug therapy; Z79.82 Long term (current) use of aspirin; W18.30XD Fall on same level, unspecified, subsequent encounter
CPT/HCPCS: 29125; 99284-25

== ENCOUNTER 2018-07-03 21:52 | Emergency (ER) | payer MEDICAID ==
[2018-07-03] MEDS ORDERED: Nitroglycerin 0.4 MG Tab.SL ONE (22:10)
[2018-07-03] MEDS ORDERED: Heparin Sodium 5,000 Units/ML Vial ONE (22:30)
[2018-07-03] MEDS ORDERED: Sodium Chloride 0.9% 1,000 ML ONE (22:31)
[2018-07-03] MEDS ORDERED: Heparin Sodium/D5W 500 ML ONE (22:31)
[2018-07-03] MEDS ORDERED: Morphine 2 MG/ML Syringe ONE ×2 (22:33→23:07)
[2018-07-03] MEDS ORDERED: Nitroglycerin/D5W 25 MG/250 ML BOTTLE ONE (23:29)
--- NOTE | 2018-07-04 02:57 | ER ---
CHIEF COMPLAINT: Chest pain. HISTORY OF PRESENT ILLNESS: The patient is a 47-year-old male, who presents to the emergency room with slightly over an hour history of significant midsternal chest pain. This radiates into both arms. He has had some intermittent diaphoresis with this, pain also comes into his left neck. The patient has a significant history of having 3 heart attacks in the past. He has had multiple stenting done in the past. The patient is on Plavix and aspirin. The patient took 2 nitro at home. This did not help. He received nitro spray by EMS. This did not help. The patient was given 325 mg of chewed aspirin by EMS. The patient states this reminds him of his 1st heart attack. The patient describes pain is more of a pressure like a car is parked on his chest. PAST MEDICAL HISTORY: Significant for coronary artery disease. SOCIAL HISTORY: The patient still smokes, but he has cut way back. The patient drinks alcohol, but much less than he used to. REVIEW OF SYSTEMS: GENERAL: Negative for fevers, chills, headaches, or dizziness. HEENT: Unremarkable. CARDIOVASCULAR: Significant for history of present illness. PULMONARY: No breathing difficulty, shortness of breath. GASTROINTESTINAL: No vomiting, diarrhea, constipation. He had brief episode of nausea with this episode of chest pain. GENITOURINARY: No burning or frequency with urination. NEUROLOGIC: No seizures, fits, convulsions. No areas of numbness or weakness. PHYSICAL EXAMINATION: VITAL SIGNS: Please refer to his vital signs in the chart. His pulse is in the 70s, regular. Good O2 saturation. Respirations nonlabored. Normal respiratory rate. Blood pressure systolic 115 to 125. HEAD: Normocephalic, atraumatic. NECK: Supple. No palpable neck masses. Thyroid is not palpable. No JVD noted. HEART: Regular rate and rhythm. LUNGS: No wheezes, crackles, or rhonchi noted. Breath sounds are minimally diminished. ABDOMEN: Active bowel sounds. Soft, no apparent tenderness. No rebound or guarding noted. EXTREMITIES: Negative for varicosities or edema. DIAGNOSTIC DATA: EKG: Initial EKG is very concerning for hyperacute T waves in V1, V2, V3. He has some baseline artifact, but no appreciable diagnostic ST-T wave changes. Second EKG done about 40 minutes after the 1st showed resolution of the hyperacute T waves to some degree. The patient still had pain, but it was improved somewhat. He still rates it an 8, but better than it was. Portable chest x-ray shows no acute cardiopulmonary changes. He has some emphysematous changes noted on his lungs. Pacemaker is noted. Pacer wires appear to be intact. LABORATORY EVALUATION: Troponin is initially negative. Chemistries otherwise nondiagnostic. Early in the patient's course, the patient's case was discussed with Dr. Kent, industrial pharmacist, at [facility] in [place], who agreed with starting the patient on heparin. This was done, she was in agreement to have the patient sent over. The patient's case was discussed with Dr. Robledo, hospitalist, who kindly accepted the patient. I did consider starting him on a nitro drip, but since nitro sublingual and spray did not really offer me the benefit, they advised not doing this. We will begin gentle doses of morphine here and en route. ASSESSMENT: Unstable angina. PLAN: Transferred to [facility] in [place]. MMODAL /[id number]
[2018-07-04 03:41] VITALS: BP 119/79
--- NOTE | 2018-07-04 14:25 | CR ---
Chest: Portable view of the chest was obtained. Comparison: Prior chest x-ray of 01/02/18. Heart size and mediastinum are within normal limits for portable technique. AICD is seen. Lungs are hyperinflated suggesting emphysematous change. No acute parenchymal change is seen within either lung. Bony structures are grossly intact. Impression: 1. Nothing acute is seen on portable chest x-ray. 2. Probable emphysematous change. Diagnostic code #2
== END 2018-07-04 00:37 ==
LOC: JD.ED 21:52
DX: I20.0 Unstable angina (principal); F17.290 Nicotine dependence, other tobacco product, uncomplicated; I25.10 Atherosclerotic heart disease of native coronary artery without angina pectoris
CPT/HCPCS: 36415; 71045; 80053; 84484; 85007; 85027; 85610; 96365; 96366; 96375; 99285; A9270; J1644; J2270; J3490; J7040

== ENCOUNTER 2019-04-24 13:59 | Emergency (ER) | payer MEDICAID ==
[2019-04-24] MEDS ORDERED: Aspirin 81 MG Tab.Chew PO ONE (14:17)
[2019-04-24] MEDS ORDERED: Sodium Chloride 0.9% 10 ML Syringe FLUSH PRN (14:17)
[2019-04-24] MEDS ORDERED: fentaNYL 100 MCG/2 ML SDV IVPUSH ONE ×2 (14:18→14:30)
--- NOTE | 2019-04-24 14:25 | EDM.PDOC ---
ED HPI GENERAL MEDICAL PROBLEM - General Chief Complaint: Chest Pain Stated Complaint: [facility] Time Seen by Provider: 04/24/19 14:08 Source of Information: Reports: Patient History Limitations: Reports: No Limitations - History of Present Illness INITIAL COMMENTS - FREE TEXT/NARRATIVE: Patient is a 48-year-old male who presents with complaints of right-sided chest pain that began around 1300 this afternoon. Patient states at that time he was cleaning out closets and the pain started to come on gradually. He was sitting down on the couch when the pain got worse. He does have some significant shortness of breath with this. Describes the pain as heavy and "like a truck is sitting on my chest ". He took 2 nitro sublingual at home and noticed no difference in the pain. Blood pressure did drop after this. EMS had a systolic blood pressure of 98. Patient states he has been having intermittent chest pain and increased shortness of breath over the last week. Symptoms are significantly worse today. He is a current smoker. States he only smokes about a pack a week, however at his peak he would smoke 1-1/2 packs/day. He has smoked for the last 39 years. Has no diagnosis of COPD, however states that his primary care has suspicion that he has that he has an appointment this coming week. Patient does have a significant cardiac history as well. He has had 3 MIs in the past with stents and does have a pacemaker. 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 Right Chest Pain Score (Numeric/FACES): 9 - Related Data Allergies Allergy/AdvReac Type Severity Reaction Status Date / Time No Known Allergies Allergy Verified 04/24/19 14:05 Home Meds: Home Meds Clopidogrel [Plavix] 75 mg PO DAILY 06/08/15 [History] Isosorbide Mononitrate [Imdur] 15 mg PO DAILY 06/08/15 [History] Lisinopril [Prinivil] 2.5 mg PO DAILY 06/08/15 [History] Zolpidem [Ambien] 5 - 10 mg PO BEDTIME 06/08/15 [History] traZODone 50 - 100 mg PO BEDTIME 06/08/15 [History] Aspirin [Halfprin] 81 mg PO DAILY 02/27/16 [History] LORazepam 0.5 mg PO TID PRN 11/06/16 [History] Metoprolol Succinate [Toprol XL] 50 mg PO BID 02/03/17 [History] PARoxetine [Paxil] 20 mg PO DAILY 02/03/17 [History] atorvaSTATin [Lipitor] 20 mg PO DAILY 02/03/17 [History] Ascorbate Calcium [Vitamin C] 500 mg PO BID 04/24/19 [History] Azelastine HCl 2 spray PILAR BID 04/24/19 [History] Cyanocobalamin (Vitamin B-12) [B-12] 1,000 mcg PO DAILY 04/24/19 [History] Nitroglycerin 0.4 mg SL ASDIRECTED PRN 04/24/19 [History] Past Medical History HEENT History: Reports: Impaired Vision Other HEENT History: reading glasses Cardiovascular History: Reports: CAD, High Cholesterol, Hypertension, ND, Pacemaker, Stents Musculoskeletal History: Reports: Other (See Below) Other Musculoskeletal History: Right ankle fracture Neurological History: Reports: Head Trauma Psychiatric History: Reports: Addiction, Depression - Infectious Disease History Infectious Disease History: Reports: Chicken Pox - Past Surgical History Cardiovascular Surgical History: Reports: AICD, Coronary Artery Stent, Pacer Social & Family History - Family History Family Medical History: Noncontributory Cardiac: Reports: High Cholesterol, Hypertension, ND OBGYN: Reports: - Tobacco Use Smoking Status *Q: Current Every Day Smoker Years of Tobacco use: 35 Packs/Tins Daily: 0.2 - Caffeine Use Caffeine Use: Reports: Coffee, Soda - Alcohol Use Days Per Week of Alcohol Use: 3 Number of Drinks Per Day: 5 Total Drinks Per Week: 15 - Recreational Drug Use Recreational Drug Use: No - Living Situation & Occupation Living situation: Reports: Single Occupation: Disabled ED ROS GENERAL - Review of Systems Review Of Systems: Comprehensive ROS is negative, except as noted in HPI. ED EXAM, GENERAL - Physical Exam Exam: See Below Exam Limited By: No Limitations General Appearance: Alert, WD/WN, Mild Distress Respiratory/Chest: Lungs Clear, Normal Breath Sounds, No Accessory Muscle Use, Chest Non-Tender, Other (Mildly dyspneic during conversation) Cardiovascular: Normal Peripheral Pulses, Regular Rate, Rhythm, No Edema, No Gallop, No JVD, No Murmur, No Rub GI/Abdominal: Normal Bowel Sounds, Soft, Non-Tender, No Organomegaly, No Distention, No Abnormal Bruit, No Mass Extremities: Normal Inspection, Normal Range of Motion, Non-Tender, Normal Capillary Refill, No Pedal Edema Neurological: Alert, Oriented, CN II-XII Intact, Normal Cognition, Normal Gait, Normal Reflexes, No Motor/Sensory Deficits Psychiatric: Normal Affect, Normal Mood Skin Exam: Warm, Dry, Intact, Normal Color, No Rash EKG INTERPRETATION EKG Date: 04/24/19 Time: 13:59 Rhythm: NSR Rate (Beats/Min): 71 [place]: Normal P-Wave: Present QRS: Normal ST-T: Normal QT: Normal EKG Interpretation Comments: P wave inversion in V1 and V2 T wave inversion II, III, and aVF, flattening in V1 QT is mildly prolonged LVH with strain EKG interpreted by Dr. Eileen MD. Course - Vital Signs Last Recorded V/S: Last Vital Signs Temp 97.5 F 04/24/19 17:30 Pulse 73 04/24/19 17:30 Resp 20 04/24/19 17:30 BP 95/69 04/24/19 17:30 Pulse Ox 98 04/24/19 17:30 - Orders/Labs/Meds Orders: Active Orders 24 hr Category Date Time Status EKG Documentation Completion [RC] STAT Care 04/24/19 14:17 Active EKG Documentation Completion [RC] STAT Care 04/24/19 16:39 Active Peripheral IV Care [RC] . DIRECTED Care 04/24/19 14:17 Active RT Aerosol Therapy [RC] ASDIRECTED Care 04/24/19 15:22 Active Peripheral IV Insertion Adult [OM.PC] Routine Oth 04/24/19 14:17 Ordered Labs: Laboratory Tests 04/24/19 04/24/19 04/24/19 Range/Units 14:04 14:04 14:04 WBC 6.35 (4.23-9.07) K/mm3 RBC 4.70 (4.63-6.08) M/mm3 Hgb 14.6 (13.7-17.5) gm/dl Hct 43.6 (40.1-51.0) % MCV 92.8 H (79.0-92.2) fl MCH 31.1 (25.7-32.2) pg MCHC 33.5 (32.2-35.5) g/dl RDW Std Deviation 42.8 (35.1-43.9) fL Plt Count 120 L D (163-337) K/mm3 MPV 10.3 (9.4-12.3) fl Neutrophils % (Manual) 56 (40-60) % Band Neutrophils % 0 (0-10) % Lymphocytes % (Manual) 28 (20-40) % Atypical Lymphs % 0 % Monocytes % (Manual) 13 H (2-10) % Eosinophils % (Manual) 3 (0.8-7.0) % Basophils % (Manual) 0 L (0.2-1.2) Platelet Estimate Adequate RBC Morph Comment Normal PT 11.1 (9.7-12.0) SECONDS INR 1.02 APTT 23 (22-31) SECONDS D-Dimer, Quantitative 0.58 H (0.19-0.50) mg/L Sodium 139 (136-145) mEq/L Potassium 4.8 (3.5-5.1) mEq/L Chloride 102 (98-107) mEq/L Carbon Dioxide 31 (21-32) mEq/L Anion Gap 10.8 (5-15) BUN 18 (7-18) mg/dL Creatinine 1.0 (0.7-1.3) mg/dL Est Cr Clr Drug Dosing 79.75 mL/min Estimated GFR (MDRD) > 60 (>60) mL/min BUN/Creatinine Ratio 18.0 (14-18) Glucose 98 (74-106) mg/dL Calcium 9.2 (8.5-10.1) mg/dL Magnesium 2.0 (1.8-2.4) mg/dl Total Bilirubin 0.5 (0.2-1.0) mg/dL AST 37 (15-37) U/L ALT 92 H (16-63) U/L Alkaline Phosphatase 89 (46-116) U/L CK-MB (CK-2) 1.3 (0-3.6) ng/ml Troponin I < 0.017 (0.00-0.056) ng/mL NT-Pro-B Natriuret Pep (0-125) pg/mL Total Protein 7.6 (6.4-8.2) g/dl Albumin 4.0 (3.4-5.0) g/dl Globulin 3.6 gm/dL Albumin/Globulin Ratio 1.1 (1-2) 04/24/19 04/24/19 Range/Units 14:04 16:15 WBC (4.23-9.07) K/mm3 RBC (4.63-6.08) M/mm3 Hgb (13.7-17.5) gm/dl Hct (40.1-51.0) % MCV (79.0-92.2) fl MCH (25.7-32.2) pg MCHC (32.2-35.5) g/dl RDW Std Deviation (35.1-43.9) fL Plt Count (163-337) K/mm3 MPV (9.4-12.3) fl Neutrophils % (Manual) (40-60) % Band Neutrophils % (0-10) % Lymphocytes % (Manual) (20-40) % Atypical Lymphs % % Monocytes % (Manual) (2-10) % Eosinophils % (Manual) (0.8-7.0) % Basophils % (Manual) (0.2-1.2) Platelet Estimate RBC Morph Comment PT (9.7-12.0) SECONDS INR APTT (22-31) SECONDS D-Dimer, Quantitative (0.19-0.50) mg/L Sodium (136-145) mEq/L Potassium (3.5-5.1) mEq/L Chloride (98-107) mEq/L Carbon Dioxide (21-32) mEq/L Anion Gap (5-15) BUN (7-18) mg/dL Creatinine (0.7-1.3) mg/dL Est Cr Clr Drug Dosing mL/min Estimated GFR (MDRD) (>60) mL/min BUN/Creatinine Ratio (14-18) Glucose (74-106) mg/dL Calcium (8.5-10.1) mg/dL Magnesium (1.8-2.4) mg/dl Total Bilirubin (0.2-1.0) mg/dL AST (15-37) U/L ALT (16-63) U/L Alkaline Phosphatase (46-116) U/L CK-MB (CK-2) (0-3.6) ng/ml Troponin I 1.094 H* (0.00-0.056) ng/mL NT-Pro-B Natriuret Pep 996 H (0-125) pg/mL Total Protein (6.4-8.2) g/dl Albumin (3.4-5.0) g/dl Globulin gm/dL Albumin/Globulin Ratio (1-2) Meds: Medications Discontinued Medications Generic Name Dose Route Start Last Admin Trade Name Alonsoq PRN Reason Stop Dose Admin Albuterol/Ipratropium 3 ml 04/24/19 15:22 04/24/19 15:31 Duoneb 3.0-0.5 Mg/3 Ml NEB 04/24/19 15:23 3 ml ONETIME ONE Administration Aspirin 324 mg 04/24/19 14:17 04/24/19 14:30 Aspirin PO 04/24/19 14:18 324 mg ONETIME ONE Administration Fentanyl 50 mcg 04/24/19 14:18 04/24/19 14:29 Sublimaze IVPUSH 04/24/19 14:19 50 mcg ONETIME ONE Administration Fentanyl 50 mcg 04/24/19 14:30 Sublimaze IVPUSH 04/24/19 14:31 ONETIME ONE Furosemide 20 mg 04/24/19 15:14 04/24/19 15:23 Lasix IVPUSH 04/24/19 15:15 20 mg NOW ONE Administration Heparin Sodium (Porcine) 4,000 units 04/24/19 16:51 04/24/19 17:07 Heparin Sodium IVPUSH 04/24/19 16:52 4,000 units .BOLUS ONE Administration Heparin Sodium/Dextrose 25,000 units in 500 mls @ 20 mls/hr 04/24/19 17:00 17:07 Heparin 25,000 Units In D5w 500 Ml IV 1,000 units/hr TITRATE GABRIELA 20 mls/hr Administration Protocol 1,000 UNITS/HR Ketorolac Tromethamine 30 mg 04/24/19 15:31 04/24/19 15:44 Toradol IVPUSH 04/24/19 15:32 30 mg ONETIME ONE Administration Lorazepam 0.5 mg 04/24/19 14:56 04/24/19 15:02 Ativan IVPUSH 04/24/19 14:57 0.5 mg ONETIME ONE Administration Sodium Chloride 10 ml 04/24/19 14:17 04/24/19 14:30 Saline Flush FLUSH 10 ml ASDIRECTED PRN Administration Keep Vein Open - Re-Assessments/Exams Free Text/Narrative Re-Assessment/Exam: Patient's EKG was negative for any acute ischemia. CK-MB and troponin were both negative. BNP mildly elevated at 996. D-dimer slightly elevated at 0.58. Discussed this slight elevation in d-dimer with Dr. Arellano. Since pt is on plavix and ASA daily, this is minimal elevation is not significant enough to warrent a CT angio of the chest. Chest x-ray was significant for emphysematous changes. Patient did verbalize some slight improvement of symptoms with fentanyl and Ativan administration. Plan is to repeat troponin at approximately 2 hours after the first draw. I will also give a DuoNeb treatment , Toradol IV and 20 mg of IV Lasix. 04/24/19 1720 Repeat troponin came back elevated at 1.094. Patient does verbalize some slight relief of the chest discomfort after the Toradol administration. Rates pain approximately 4 out of 10 at this time. Have ordered a heparin drip per non-STEMI protocol. Called to [facility] and spoke with manager alliance Dr. Kent, as well as hospitalist Dr. Clark. Patient has been accepted for transfer to [facility] direct admission to the cardiology floor. Departure - Departure Time of Disposition: 17:20 Disposition: DC/Tfer to [facility] 02 Reason for Transfer *Q: Primary PCI Indicated Condition: Fair Clinical Impression: NSTEMI (non-ST elevated myocardial infarction) Referrals: Jesse Pedroza MD [Primary Care Provider] - Forms: ED Department Discharge Sepsis Event Note - Evaluation Sepsis Screening Result: No Definite Risk - Focused Exam Vital Signs: Vital Signs Temp Pulse Resp BP Pulse Ox Pulse Ox 04/24/19 17:30 97.5 F 73 20 95/69 98 04/24/19 15:32 93 L 04/24/19 14:00 96.6 F L 72 20 127/86 92 L Date Exam was Performed: 04/24/19 Time Exam was Performed: 23:04 - My Orders Last 24 Hours: My Active Orders 04/24/19 14:17 EKG Documentation Completion [RC] STAT Peripheral IV Care [RC] . DIRECTED Peripheral IV Insertion Adult [OM.PC] Routine 04/24/19 15:22 RT Aerosol Therapy [RC] ASDIRECTED 04/24/19 16:39 EKG Documentation Completion [RC] STAT - Assessment/Plan Last 24 Hours: My Active Orders 04/24/19 14:17 EKG Documentation Completion [RC] STAT Peripheral IV Care [RC] . DIRECTED Peripheral IV Insertion Adult [OM.PC] Routine 04/24/19 15:22 RT Aerosol Therapy [RC] ASDIRECTED 04/24/19 16:39 EKG Documentation Completion [RC] STAT
--- NOTE | 2019-04-24 14:50 | CR ---
Chest: 2 views of the chest were obtained. Comparison: Prior chest x-ray of 07/03/18. Heart size and mediastinum are normal. AICD is present. Lungs are slightly hyperinflated. Bony structures are within normal limits for the patient's age. Impression: 1. Possible emphysematous change. 2. Other findings as noted above. Nothing acute is appreciated. Diagnostic code #2 This report was dictated in [place] Standard Time
[2019-04-24] MEDS ORDERED: LORazepam 2 MG/ML SDV IVPUSH ONE (14:56)
[2019-04-24] MEDS ORDERED: Furosemide 40 MG/4 ML VIAL IVPUSH ONE (15:14)
[2019-04-24] MEDS ORDERED: Albuterol/Ipratropium 3.0-0.5 MG/3 ML Neb Soln NEB ONE (15:22)
[2019-04-24] MEDS ORDERED: Ketorolac 30 MG/ML SDV IVPUSH ONE (15:31)
[2019-04-24] MEDS ORDERED: Heparin Sodium 5,000 Units/ML Vial IVPUSH ONE (16:51)
[2019-04-24] MEDS ORDERED: Heparin Sodium/D5W 25,000 UNITS/500 ML BAG IV SCH (17:00)
[2019-04-24 17:44] VITALS: BP 95/69; PULSE 73
== END 2019-04-24 18:12 ==
LOC: JD.ED 13:59
DX: I21.4 Non-ST elevation (NSTEMI) myocardial infarction (principal); I25.10 Atherosclerotic heart disease of native coronary artery without angina pectoris; E78.00 Pure hypercholesterolemia, unspecified; I10 Essential (primary) hypertension; F32.9 Major depressive disorder, single episode, unspecified; F17.210 Nicotine dependence, cigarettes, uncomplicated; Z95.5 Presence of coronary angioplasty implant and graft; Z79.899 Other long term (current) drug therapy; Z79.02 Long term (current) use of antithrombotics/antiplatelets; Z79.82 Long term (current) use of aspirin; Z95.810 Presence of automatic (implantable) cardiac defibrillator
CPT/HCPCS: 36415; 71046; 80053; 82553; 83735; 83880; 84484; 85007; 85027; 85379; 85610; 85730; 93005; 94640; 96365; 96375; 99285; A9270; J1644; J1885; J1940; J2060; J3010; 93010; J7620-GY

== ENCOUNTER 2019-07-24 15:25 | Emergency (ER) | payer MEDICAID ==
[2019-07-24] MEDS ORDERED: LORazepam 2 MG/ML SDV IVPUSH ONE ×2 (15:40→18:42)
[2019-07-24] MEDS ORDERED: Metoclopramide 10 MG/2 ML SDV IVPUSH ONE (15:41)
--- NOTE | 2019-07-24 15:44 | EDM.PDOC ---
ED HPI GENERAL MEDICAL PROBLEM - General Chief Complaint: Chest Pain Stated Complaint: [facility] Time Seen by Provider: 07/24/19 15:40 Source of Information: Reports: Patient, EMS History Limitations: Reports: No Limitations - History of Present Illness INITIAL COMMENTS - FREE TEXT/NARRATIVE: 48-year-old male presents to the ED per [facility] complaining of central chest pain since midmorning around 10 or 11:00 today. He has a history of coronary artery disease with previous myocardial infarction. He still smokes 5 to 10 cigarettes/day. Denies any cough or sputum production. Denies any fever or chills. Indicates that he is been drinking alcohol fairly heavily for the last 2 to 3 days and has not taken any of his normal medications as he did not want them to interfere with the alcohol. Does not denies any nausea or vomiting. Paramedics administered aspirin 324 mg chewed by mouth and he was given morphine 4 mg IV with Zofran 4 mg IV for pain and nausea relief. his breath smellsstrongly of alcohol and his behavior id very dramatic. He presents in sinus tachycardia in the 130s. He is very anxious. Pain is felt primarily central sternum. Denies any radiation to his back neck jaw or upper extremities. Onset: Today, Gradual Onset Date: 07/24/19 (Vague as to when the chest pressure started.) Duration: Hour(s):, Constant, Other Location: Reports: Chest (Only the chest pressure discomfort gradually intensified over the last 5 to 6 hours.) Quality: Reports: Ache ( Chest discomfort. No radiation of pain is a deep ache or pressure.), Pressure Severity: Moderate Improves with: Reports: None (Comment 8 out of 10. No improvement with morphine 4 mg IV administered by the paramedics.) Worsens with: Reports: None Context: Denies: Activity, Exercise, Lifting, Sick Contact, Trauma, Other Associated Symptoms: Reports: Chest Pain, Loss of Appetite (He has not eaten much in the last 2 days), Malaise, Nausea/Vomiting, Shortness of Breath, Weakness (Mild nausea no vomiting). 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 This includes Plavix isosorbide lisinopril metoprolol lorazepam Paxil and trazodone) Middle Chest Pain Score (Numeric/FACES): 8 - Related Data Allergies Allergy/AdvReac Type Severity Reaction Status Date / Time No Known Allergies Allergy Verified 07/24/19 15:42 Home Meds: Home Meds Clopidogrel [Plavix] 75 mg PO DAILY 06/08/15 [History] Isosorbide Mononitrate [Imdur] 15 mg PO DAILY 06/08/15 [History] Lisinopril [Prinivil] 2.5 mg PO DAILY 06/08/15 [History] Zolpidem [Ambien] 5 - 10 mg PO BEDTIME 06/08/15 [History] traZODone 50 - 100 mg PO BEDTIME 06/08/15 [History] Aspirin [Halfprin] 81 mg PO DAILY 02/27/16 [History] LORazepam 0.5 mg PO TID PRN 11/06/16 [History] Metoprolol Succinate [Toprol XL] 50 mg PO BID 02/03/17 [History] PARoxetine [Paxil] 20 mg PO DAILY 02/03/17 [History] Azelastine HCl 2 spray PILAR BID 04/24/19 [History] Cyanocobalamin (Vitamin B-12) [B-12] 1,000 mcg PO DAILY 04/24/19 [History] Nitroglycerin 0.4 mg SL ASDIRECTED PRN 04/24/19 [History] Past Medical History HEENT History: Reports: Impaired Vision Other HEENT History: reading glasses Cardiovascular History: Reports: CAD, High Cholesterol, Hypertension, [place], Pacemaker, Stents Musculoskeletal History: Reports: Other (See Below) Other Musculoskeletal History: Right ankle fracture Neurological History: Reports: Head Trauma Psychiatric History: Reports: Addiction, Depression - Infectious Disease History Infectious Disease History: Reports: Chicken Pox - Past Surgical History Cardiovascular Surgical History: Reports: AICD, Coronary Artery Stent, Pacer Social & Family History - Family History Family Medical History: Noncontributory Cardiac: Reports: High Cholesterol, Hypertension, [place] OBGYN: Reports: - Tobacco Use Smoking Status *Q: Current Every Day Smoker Tobacco Use Within Last Twelve Months: Cigarettes (He still smoking 5 to 10 cigarettes a day) - Caffeine Use Caffeine Use: Reports: Coffee, Soda - Alcohol Use Alcohol Use History: Yes Days Per Week of Alcohol Use: 5 Total Drinks Per Week Comment: 35 Date of Last Drink: 07/24/19 Alcohol Use in Last Twelve Months: Yes Alcohol Use Frequency: Binges - Living Situation & Occupation Living situation: Reports: Single Occupation: Disabled ED ROS GENERAL - Review of Systems Review Of Systems: See Below Constitutional: Reports: Malaise, Weakness, Fatigue, Decreased Appetite. Denies : Fever, Chills HEENT: Reports: No Symptoms Respiratory: Reports: Shortness of Breath. Denies: Wheezing, Pleuritic Chest Pain, Cough, Sputum, Hemoptysis Cardiovascular: Reports: Chest Pain, Blood Pressure Problem (Limbs he has central chest heaviness pressure discomfort.), Dyspnea on Exertion (Sometimes). Denies: Claudication, Edema, Lightheadedness, Orthopnea Endocrine: Reports: Fatigue GI/Abdominal: Reports: Decreased Appetite, Nausea. Denies: Hematemesis, Hematochezia, Vomiting : Reports: Frequency, Other ([place] x2) Musculoskeletal: Reports: Back Pain, Joint Pain (He sips neck at times) Skin: Reports: Bruising (This is easy as he is on Plavix and aspirin daily) Neurological: Reports: No Symptoms Psychiatric: Reports: Anxiety, Depression, Other (Chronic substance abuse with nicotine dependency and alcohol use) Hematologic/Lymphatic: Reports: No Symptoms Immunologic: Reports: No Symptoms ED EXAM, GENERAL - Physical Exam Exam: See Below Exam Limited By: No Limitations General Appearance: Alert, WD/WN, Anxious (Anxious.), Moderate Distress, Other ( Signs show temperature 36.1 heart rate is 125 and sinus tachycardia on the monitor. Respiratory to 16 O2 sats 93 to 95% on room air BP elevated 166 105.) Eye Exam: Bilateral Eye: Normal Inspection (No scleral icterus or blepharal pallor.), PERRL (No nystagmus) Nose: Normal Inspection Throat/Mouth: Other (Teeth are in need of). No: Normal Inspection, Normal Teeth ( dental work.), Normal Oropharynx ( Pharynx is slightly dry and mildly erythematous without exudate) Head: Atraumatic, Normocephalic, Other (No outward signs of any head or facial trauma) Neck: Normal Inspection, Full Range of Motion, Limited Range of Motion (It is on lateral rotation). No: Carotid Bruit, Lymphadenopathy (L), Lymphadenopathy ( R), Thyromegaly Respiratory/Chest: No Respiratory Distress, No Accessory Muscle Use, Decreased Breath Sounds, Other (Defibrillator pacemaker left upper anterior chest.). No: Normal Breath Sounds, Rales, Rhonchi, Wheezing (Steroid into the lower 50% lung tomas bilaterally compatible with COPD.) Cardiovascular: No Edema, No Gallop (Tachycardia 125 at rest), No JVD, No Murmur , No Rub, Tachycardia Peripheral Pulses: 2+: Posterior Tibial (L), Posterior Tibial (R), Dorsalis Pedis (L), Dorsalis Pedis (R), 3+: Carotid (L), Carotid (R) GI/Abdominal: Normal Bowel Sounds, Soft, Non-Tender, No Organomegaly, No Abnormal Bruit, No Mass, Pelvis Stable. No: Hepatomegaly, Splenomegaly Back Exam: Normal Inspection, Full Range of Motion. No: CVA Tenderness (L), CVA Tenderness (R) Extremities: Normal Inspection, Normal Range of Motion, Non-Tender, No Pedal Edema Neurological: Alert, Oriented, CN II-XII Intact, Normal Cognition, Normal Reflexes, No Motor/Sensory Deficits. No: Normal Gait (Tested) Psychiatric: Normal Mood, Anxious Skin Exam: Warm, Intact, Normal Color, No Rash EKG INTERPRETATION EKG Date: 07/24/19 Time: 15:30 Rhythm: Other (Is tachycardia 130/min) Rate (Beats/Min): 130 [place]: LAD-Left [place] Deviation P-Wave: Enlarged (Consider right atrial hypertrophy.) QRS: Other (There is left ventricular appear to be pattern with repolarization abnormality. There are Q waves V1, V2, V3 and near Q wave in V4 combined with an old anteroseptal myocardial infarction.) ST-T: Other QT: Normal EKG Interpretation Comments: Abnormal ECG with no signs of acute ischemic change. Course - Vital Signs Last Recorded V/S: Last Vital Signs Temp 36.1 C 07/24/19 15:38 Pulse 125 H 07/24/19 15:38 Resp 16 07/24/19 15:38 BP 166/105 H 07/24/19 15:38 Pulse Ox 93 L 07/24/19 15:38 - Orders/Labs/Meds Orders: Active Orders 24 hr Category Date Time Status EKG Documentation Completion [RC] ASDIRECTED Care 07/24/19 17:42 Active EKG Documentation Completion [RC] STAT Care 07/24/19 17:43 Active Chest 1V Frontal [CR] Stat Exams 07/24/19 15:42 Taken DRUG SCREEN, URINE [URCHEM] Stat Lab 07/24/19 15:43 Ordered URINALYSIS W/MICROSCOPIC [UA W/MICROSCOPIC] [URIN] Stat Lab 07/24/19 15:43 Ordered Dextrose 5%-0.9% NaCl [Dextrose 5%-Normal Saline] 1,000 Med 07/24/19 15:45 Active ml IV ASDIRECTED Heparin Sodium Med 07/24/19 18:21 Once 4,200 units IVPUSH .BOLUS ONE Heparin Sodium/D5W [Heparin 25,000 Units in D5W 500 ML] Med 07/24/19 18:30 Ordered 25,000 units in 500 ml IV ASDIRECTED Nitroglycerin/D5W [Nitroglycerin 25 MG/D5W 250 ML] Med 07/24/19 18:00 Active 25 mg in 250 ml IV TITRATE EKG 12 Lead [EK] Stat Ther 07/24/19 17:42 Ordered Medication Orders Heparin Sodium (Porcine) (Heparin Sodium) 4,200 units IVPUSH .BOLUS ONE Stop: 07/24/19 18:22 Dextrose/Sodium Chloride (Dextrose 5%-Normal Saline) 1,000 mls @ 500 mls/hr IV ASDIRECTED GABRIELA Last Admin: 07/24/19 15:51 Dose: 500 mls/hr Nitroglycerin/Dextrose (Nitroglycerin 25 Mg/D5w 250 Ml) 25 mg in 250 mls @ 6 mls/hr IV TITRATE GABRIELA; Protocol Last Admin: 07/24/19 18:03 Dose: 10 mcg/min, 6 mls/hr Heparin Sodium/Dextrose (Heparin 25,000 Units In D5w 500 Ml) 25,000 units in 500 mls @ 18 mls/hr IV ASDIRECTED GABRIELA Labs: Laboratory Tests 07/24/19 07/24/19 07/24/19 Range/Units 16:30 16:30 16:30 WBC 4.95 (4.23-9.07) K/mm3 RBC 4.94 (4.63-6.08) M/mm3 Hgb 15.7 (13.7-17.5) gm/dl Hct 46.3 (40.1-51.0) % MCV 93.7 H (79.0-92.2) fl MCH 31.8 (25.7-32.2) pg MCHC 33.9 (32.2-35.5) g/dl RDW Std Deviation 45.1 H (35.1-43.9) fL Plt Count 217 D (163-337) K/mm3 MPV 9.3 L (9.4-12.3) fl Neut % (Auto) 58.5 (34.0-67.9) % Lymph % (Auto) 24.4 (21.8-53.1) % [place] % (Auto) 14.9 H (5.3-12.2) % Eos % (Auto) 1.0 (0.8-7.0) Baso % (Auto) 1.0 (0.1-1.2) % Neut # (Auto) 2.89 (1.78-5.38) K/mm3 Lymph # (Auto) 1.21 L (1.32-3.57) K/mm3 [place] # (Auto) 0.74 (0.30-0.82) K/mm3 Eos # (Auto) 0.05 (0.04-0.54) K/mm3 Baso # (Auto) 0.05 (0.01-0.08) K/mm3 PT 10.8 (9.7-12.0) SECONDS INR 0.99 APTT 27 (22-31) SECONDS Sodium 140 (136-145) mEq/L Potassium 3.5 (3.5-5.1) mEq/L Chloride 101 (98-107) mEq/L Carbon Dioxide 29 (21-32) mEq/L Anion Gap 13.5 (5-15) BUN 5 L (7-18) mg/dL Creatinine 1.0 (0.7-1.3) mg/dL Est Cr Clr Drug Dosing TNP Estimated GFR (MDRD) > 60 (>60) mL/min BUN/Creatinine Ratio 5.0 L (14-18) Glucose 158 H (74-106) mg/dL Lactic Acid (0.4-2.0) mmol/L Calcium 7.9 L (8.5-10.1) mg/dL Magnesium 1.9 (1.8-2.4) mg/dl Total Bilirubin 0.3 (0.2-1.0) mg/dL AST 37 (15-37) U/L ALT 69 H (16-63) U/L Alkaline Phosphatase 85 (46-116) U/L CK-MB (CK-2) 3.9 H (0-3.6) ng/ml Troponin I 0.235 H* (0.00-0.056) ng/mL C-Reactive Protein <0.2 (<1.0) mg/dL NT-Pro-B Natriuret Pep (0-125) pg/mL Total Protein 7.7 (6.4-8.2) g/dl Albumin 3.9 (3.4-5.0) g/dl Globulin 3.8 gm/dL Albumin/Globulin Ratio 1.0 (1-2) Lipase (73-393) U/L Ethyl Alcohol 0.29 (0.00) gm% Ketones (0.0-0.3) mM 07/24/19 07/24/19 07/24/19 Range/Units 16:30 16:30 16:30 WBC (4.23-9.07) K/mm3 RBC (4.63-6.08) M/mm3 Hgb (13.7-17.5) gm/dl Hct (40.1-51.0) % MCV (79.0-92.2) fl MCH (25.7-32.2) pg MCHC (32.2-35.5) g/dl RDW Std Deviation (35.1-43.9) fL Plt Count (163-337) K/mm3 MPV (9.4-12.3) fl Neut % (Auto) (34.0-67.9) % Lymph % (Auto) (21.8-53.1) % [place] % (Auto) (5.3-12.2) % Eos % (Auto) (0.8-7.0) Baso % (Auto) (0.1-1.2) % Neut # (Auto) (1.78-5.38) K/mm3 Lymph # (Auto) (1.32-3.57) K/mm3 [place] # (Auto) (0.30-0.82) K/mm3 Eos # (Auto) (0.04-0.54) K/mm3 Baso # (Auto) (0.01-0.08) K/mm3 PT (9.7-12.0) SECONDS INR APTT (22-31) SECONDS Sodium (136-145) mEq/L Potassium (3.5-5.1) mEq/L Chloride (98-107) mEq/L Carbon Dioxide (21-32) mEq/L Anion Gap (5-15) BUN (7-18) mg/dL Creatinine (0.7-1.3) mg/dL Est Cr Clr Drug Dosing Estimated GFR (MDRD) (>60) mL/min BUN/Creatinine Ratio (14-18) Glucose (74-106) mg/dL Lactic Acid (0.4-2.0) mmol/L Calcium (8.5-10.1) mg/dL Magnesium (1.8-2.4) mg/dl Total Bilirubin (0.2-1.0) mg/dL AST (15-37) U/L ALT (16-63) U/L Alkaline Phosphatase (46-116) U/L CK-MB (CK-2) (0-3.6) ng/ml Troponin I (0.00-0.056) ng/mL C-Reactive Protein (<1.0) mg/dL NT-Pro-B Natriuret Pep 621 H (0-125) pg/mL Total Protein (6.4-8.2) g/dl Albumin (3.4-5.0) g/dl Globulin gm/dL Albumin/Globulin Ratio (1-2) Lipase 1421 H (73-393) U/L Ethyl Alcohol (0.00) gm% Ketones 0.10 (0.0-0.3) mM 07/24/19 Range/Units 16:47 WBC (4.23-9.07) K/mm3 RBC (4.63-6.08) M/mm3 Hgb (13.7-17.5) gm/dl Hct (40.1-51.0) % MCV (79.0-92.2) fl MCH (25.7-32.2) pg MCHC (32.2-35.5) g/dl RDW Std Deviation (35.1-43.9) fL Plt Count (163-337) K/mm3 MPV (9.4-12.3) fl Neut % (Auto) (34.0-67.9) % Lymph % (Auto) (21.8-53.1) % [place] % (Auto) (5.3-12.2) % Eos % (Auto) (0.8-7.0) Baso % (Auto) (0.1-1.2) % Neut # (Auto) (1.78-5.38) K/mm3 Lymph # (Auto) (1.32-3.57) K/mm3 [place] # (Auto) (0.30-0.82) K/mm3 Eos # (Auto) (0.04-0.54) K/mm3 Baso # (Auto) (0.01-0.08) K/mm3 PT (9.7-12.0) SECONDS INR APTT (22-31) SECONDS Sodium (136-145) mEq/L Potassium (3.5-5.1) mEq/L Chloride (98-107) mEq/L Carbon Dioxide (21-32) mEq/L Anion Gap (5-15) BUN (7-18) mg/dL Creatinine (0.7-1.3) mg/dL Est Cr Clr Drug Dosing Estimated GFR (MDRD) (>60) mL/min BUN/Creatinine Ratio (14-18) Glucose (74-106) mg/dL Lactic Acid 3.2 H* (0.4-2.0) mmol/L Calcium (8.5-10.1) mg/dL Magnesium (1.8-2.4) mg/dl Total Bilirubin (0.2-1.0) mg/dL AST (15-37) U/L ALT (16-63) U/L Alkaline Phosphatase (46-116) U/L CK-MB (CK-2) (0-3.6) ng/ml Troponin I (0.00-0.056) ng/mL C-Reactive Protein (<1.0) mg/dL NT-Pro-B Natriuret Pep (0-125) pg/mL Total Protein (6.4-8.2) g/dl Albumin (3.4-5.0) g/dl Globulin gm/dL Albumin/Globulin Ratio (1-2) Lipase (73-393) U/L Ethyl Alcohol (0.00) gm% Ketones (0.0-0.3) mM Meds: Medications Generic Name Dose Route Start Last Admin Trade Name Freq PRN Reason Stop Dose Admin Heparin Sodium (Porcine) 4,200 units 07/24/19 18:21 Heparin Sodium IVPUSH 07/24/19 18:22 .BOLUS ONE Dextrose/Sodium Chloride 1,000 mls @ 500 mls/hr 07/24/19 15:45 07/24/19 15:51 Dextrose 5%-Normal Saline IV 500 mls/hr ASDIRECTED GABRIELA Administration Nitroglycerin/Dextrose 25 mg in 250 mls @ 6 mls/hr 07/24/19 18:00 07/24/19 18 :03 Nitroglycerin 25 Mg/D5w 250 Ml IV 10 mcg/min TITRATE GABRIELA 6 mls/hr Administration Protocol 10 MCG/MIN Heparin Sodium/Dextrose 25,000 units in 500 mls @ 18 mls/hr 07/24/19 18:30 Heparin 25,000 Units In D5w 500 Ml IV ASDIRECTED GABRIELA 900 UNITS/HR Discontinued Medications Generic Name Dose Route Start Last Admin Trade Name Freq PRN Reason Stop Dose Admin Diphenhydramine HCl 25 mg 07/24/19 15:47 07/24/19 15:56 Benadryl IVPUSH 07/24/19 15:48 25 mg ONETIME ONE Administration Lorazepam 1 mg 07/24/19 15:40 07/24/19 15:52 Ativan IVPUSH 07/24/19 15:41 1 mg ONETIME ONE Administration Metoclopramide HCl 7.5 mg 07/24/19 15:41 07/24/19 15:53 Reglan IVPUSH 07/24/19 15:42 7.5 mg ONETIME ONE Administration - Radiology Interpretation Free Text/Narrative:: 48-year-old male presents to the ED per [facility] complaining of central chest pressure heaviness probably since midmorning today. He is very vague about when it started he states is intensified as the day is gone on. He indicates that he is been drinking alcohol for the last 2 to 3 days and has not been taking any of his cardiac medications or Plavix and/or aspirin. He has a history of a large anteroseptal myocardial infarction. The ECG shows sinus tachycardia at 132/min without any signs of ischemic change. Still smoking cigarettes daily as well. Usually 5-10. He has had morphine 4 mg IV and Zofran 4 mg IV administered by paramedics without relief of his discomfort. He is on Ativan 0.5 mg 3 times daily. He appears extremely anxious and agitated at this time. Plan cardiac work-up will be commenced. Since there is no ischemia on his ECG I will not place him on a nitroglycerin drip. Paramedics did give him 4 baby aspirin chewed. IV will be D5 normal saline at 500 mils per hour as he is been drinking alcohol fairly heavily for the last 2 to 3 days. Is unclear when he last ate. I am going to give him Ativan 1 mg IV with Reglan 7.5 g IV and Benadryl 25 mg IV to relieve some of his anxiety state. Cardiac work-up will be commenced. - Re-Assessments/Exams Free Text/Narrative Re-Assessment/Exam: 07/24/19 16:49 Hematology is back revealing a normal white count at 4.95. The auto differential is 58% neutrophils. Hemoglobin is 15.7 with hematocrit of 46.3. MCV is slightly elevated at 93.7. Platelet count 217,000. Chemistry is pending. Patient has been able to relax and sleep since receiving IV Ativan and Benadryl. Rate is down to 101 and sinus tachycardia. BP is 115/99. Sats are 93% on room air 07/24/19 17:05 test x-ray done portably reveals hyperinflated lung tomas. Borderline cardiomegaly. There is a defibrillator pacemaker in the left upper quadrant of the chest. 07/24/19 17:41 PTis 10.8 with an INR of 0.99. PTT is 27. Sodium 140 with potassium low normal at 3.5. Chloride is 101 with a bicarb of 29. Anion gap is 13.5. BUN is 5 with a creatinine of 1.0. GFR remains greater than 60. Glucose is 158. Lactic acid is 3.2 which is elevated calcium is 7.9 magnesium 1.9 bilirubin 0.3 with an AST of 37 ALT of 69 alk phosphatase 85. CK-MB fraction is mildly elevated at 3.9 troponin I is elevated at 0.235. C-reactive protein is less than 0.2. Total protein is 7.7. Blood alcohol is 0.29 g%. Patient therefore rules in for a myocardial infarction. I will repeat his ECG as the initial one revealed a sinus tachycardia 130 due to his anxiety. His heart rate is currently 103 sinus tachycardia. BNP is pending 07/24/19 17:50 repeat ECG at 1743 hrs. is essentially unchanged from the first 1. He has a sinus tachycardia 100/min. Occasional PVCs. Biatrial enlargement evident. Left ventricular appear to be with strain pattern evident. Q waves V1 to V3 and near Q wave V4 suggesting old anteroseptal myocardial infarction. T wave flattening in leads I and aVL which is nonspecific. 07/24/19 18:25 BNP is returned at 621. Lipase is elevated at 1421 indicating mild pancreatitis as well. Ketones came back at 0.10. Discussed case with on- call keyboard action assembler at [facility] where he receives care in [place]. Plan he will be started nitroglycerin drip at 10 mcg/min blood pressure limiting. Oxygen at 2 L/min has been started because his sats dipped down to 91% when he is falling asleep. He still complains that his chest pain is 8 out of 10 which I do not believe. 07/24/19 18:44 patient will be transported to [facility] after I spoke with the [address] Duenas has accepted care. She is currently working as a hospitalist at that facility. Patient has received Ativan 1 mg IV and fentanyl 50 mcg IV for chest pain and anxiety relief. Departure - Departure Time of Disposition: 18:46 Disposition: DC/Tfer to [facility] 02 Reason for Transfer *Q: Primary PCI Indicated Condition: Fair Clinical Impression: Acute coronary syndrome with high troponin, Lactic acidosis, Chest discomfort Acute alcohol intoxication Qualifiers: Complication of substance-induced condition: uncomplicated Qualified Code(s): F10.920 - Alcohol use, unspecified with intoxication, uncomplicated Pancreatitis, alcoholic, acute Qualifiers: Acute pancreatitis complication: unspecified Qualified Code(s): K85.20 - Alcohol induced acute pancreatitis without necrosis or infection Alcohol intoxication Qualifiers: Complication of substance-induced condition: uncomplicated Qualified Code(s): F10.920 - Alcohol use, unspecified with intoxication, uncomplicated Chest pain Qualifiers: Chest pain type: unspecified Qualified Code(s): R07.9 - Chest pain, unspecified Instructions: Alcohol Use Disorder, Coronary Artery Disease, Male Referrals: Jesse Pedroza MD [Primary Care Provider] - Forms: ED Department Discharge Additional Instructions: ED HPI GENERAL MEDICAL PROBLEM - General Chief Complaint: Chest Pain Stated Complaint: [facility] Time Seen by Provider: 07/24/19 15:40 Source of Information: Reports: Patient, EMS History Limitations: Reports: No Limitations - History of Present Illness INITIAL COMMENTS - FREE TEXT/NARRATIVE: 48-year-old male presents to the ED per [facility] complaining of central chest pain since midmorning around 10 or 11:00 today. He has a history of coronary artery disease with previous myocardial infarction. He still smokes 5 to 10 cigarettes/day. Denies any cough or sputum production. Denies any fever or chills. Indicates that he is been drinking alcohol fairly heavily for the last 2 to 3 days and has not taken any of his normal medications as he did not want them to interfere with the alcohol. Does not denies any nausea or vomiting. Paramedics administered aspirin 324 mg chewed by mouth and he was given morphine 4 mg IV with Zofran 4 mg IV for pain and nausea relief. his breath smellsstrongly of alcohol and his behavior id very dramatic. He presents in sinus tachycardia in the 130s. He is very anxious. Pain is felt primarily central sternum. Denies any radiation to his back neck jaw or upper extremities. Onset: Today, Gradual Onset Date: 07/24/19 (Vague as to when the chest pressure started.) Duration: Hour(s):, Constant, Other Location: Reports: Chest (Only the chest pressure discomfort gradually intensified over the last 5 to 6 hours.) Quality: Reports: Ache ( Chest discomfort. No radiation of pain is a deep ache or pressure.), Pressure Severity: Moderate Improves with: Reports: None (Comment 8 out of 10. No improvement with morphine 4 mg IV administered by the paramedics.) Worsens with: Reports: None Context: Denies: Activity, Exercise, Lifting, Sick Contact, Trauma, Other Associated Symptoms: Reports: Chest Pain, Loss of Appetite (He has not eaten much in the last 2 days), Malaise, Nausea/Vomiting, Shortness of Breath, Weakness (Mild nausea no vomiting). 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 This includes Plavix isosorbide lisinopril metoprolol lorazepam Paxil and trazodone) Middle Chest Pain Score (Numeric/FACES): 8 - Related Data Allergies Allergy/AdvReac Type Severity Reaction Status Date / Time No Known Allergies Allergy Verified 07/24/19 15:42 Home Meds: Home Meds Clopidogrel [Plavix] 75 mg PO DAILY 06/08/15 [History] Isosorbide Mononitrate [Imdur] 15 mg PO DAILY 06/08/15 [History] Lisinopril [Prinivil] 2.5 mg PO DAILY 06/08/15 [History] Zolpidem [Ambien] 5 - 10 mg PO BEDTIME 06/08/15 [History] traZODone 50 - 100 mg PO BEDTIME 06/08/15 [History] Aspirin [Halfprin] 81 mg PO DAILY 02/27/16 [History] LORazepam 0.5 mg PO TID PRN 11/06/16 [History] Metoprolol Succinate [Toprol XL] 50 mg PO BID 02/03/17 [History] PARoxetine [Paxil] 20 mg PO DAILY 02/03/17 [History] Azelastine HCl 2 spray PILAR BID 04/24/19 [History] Cyanocobalamin (Vitamin B-12) [B-12] 1,000 mcg PO DAILY 04/24/19 [History] Nitroglycerin 0.4 mg SL ASDIRECTED PRN 04/24/19 [History] Past Medical History HEENT History: Reports: Impaired Vision Other HEENT History: reading glasses Cardiovascular History: Reports: CAD, High Cholesterol, Hypertension, [place], Pacemaker, Stents Musculoskeletal History: Reports: Other (See Below) Other Musculoskeletal History: Right ankle fracture Neurological History: Reports: Head Trauma Psychiatric History: Reports: Addiction, Depression - Infectious Disease History Infectious Disease History: Reports: Chicken Pox - Past Surgical History Cardiovascular Surgical History: Reports: AICD, Coronary Artery Stent, Pacer Social & Family History - Family History Family Medical History: Noncontributory Cardiac: Reports: High Cholesterol, Hypertension, [place] OBGYN: Reports: - Caffeine Use Caffeine Use: Reports: Coffee, Soda - Living Situation & Occupation Living situation: Reports: Single Occupation: Disabled ED ROS GENERAL - Review of Systems Review Of Systems: See Below Constitutional: Reports: Malaise, Weakness, Fatigue, Decreased Appetite. Denies : Fever, Chills HEENT: Reports: No Symptoms Respiratory: Reports: Shortness of Breath. Denies: Wheezing, Pleuritic Chest Pain, Cough, Sputum, Hemoptysis Cardiovascular: Reports: Chest Pain, Blood Pressure Problem (Limbs he has central chest heaviness pressure discomfort.), Dyspnea on Exertion (Sometimes). Denies: Claudication, Edema, Lightheadedness, Orthopnea Endocrine: Reports: Fatigue GI/Abdominal: Reports: Decreased Appetite, Nausea. Denies: Hematemesis, Hematochezia, Vomiting : Reports: Frequency, Other ([place] x2) Musculoskeletal: Reports: Back Pain, Joint Pain (He sips neck at times) Skin: Reports: Bruising (This is easy as he is on Plavix and aspirin daily) Neurological: Reports: No Symptoms Psychiatric: Reports: Anxiety, Depression, Other (Chronic substance abuse with nicotine dependency and alcohol use) Hematologic/Lymphatic: Reports: No Symptoms Immunologic: Reports: No Symptoms ED EXAM, GENERAL - Physical Exam Exam: See Below Exam Limited By: No Limitations General Appearance: Alert, WD/WN, Anxious (Anxious.), Moderate Distress, Other ( Signs show temperature 36.1 heart rate is 125 and sinus tachycardia on the monitor. Respiratory to 16 O2 sats 93 to 95% on room air BP elevated 166 105.) Eye Exam: Bilateral Eye: Normal Inspection (No scleral icterus or blepharal pallor.), PERRL (No nystagmus) Nose: Normal Inspection Throat/Mouth: Other (Teeth are in need of). No: Normal Inspection, Normal Teeth ( dental work.), Normal Oropharynx ( Pharynx is slightly dry and mildly erythematous without exudate) Head: Atraumatic, Normocephalic, Other (No outward signs of any head or facial trauma) Neck: Normal Inspection, Full Range of Motion, Limited Range of Motion (It is on lateral rotation). No: Carotid Bruit, Lymphadenopathy (L), Lymphadenopathy ( R), Thyromegaly Respiratory/Chest: No Respiratory Distress, No Accessory Muscle Use, Decreased Breath Sounds, Other (Defibrillator pacemaker left upper anterior chest.). No: Normal Breath Sounds, Rales, Rhonchi, Wheezing (Steroid into the lower 50% lung tomas bilaterally compatible with COPD.) Cardiovascular: No Edema, No Gallop (Tachycardia 125 at rest), No JVD, No Murmur , No Rub, Tachycardia Peripheral Pulses: 2+: Posterior Tibial (L), Posterior Tibial (R), Dorsalis Pedis (L), Dorsalis Pedis (R), 3+: Carotid (L), Carotid (R) GI/Abdominal: Normal Bowel Sounds, Soft, Non-Tender, No Organomegaly, No Abnormal Bruit, No Mass, Pelvis Stable. No: Hepatomegaly, Splenomegaly Back Exam: Normal Inspection, Full Range of Motion. No: CVA Tenderness (L), CVA Tenderness (R) Extremities: Normal Inspection, Normal Range of Motion, Non-Tender, No Pedal Edema Neurological: Alert, Oriented, CN II-XII Intact, Normal Cognition, Normal Reflexes, No Motor/Sensory Deficits. No: Normal Gait (Tested) Psychiatric: Normal Mood, Anxious Skin Exam: Warm, Intact, Normal Color, No Rash EKG INTERPRETATION EKG Date: 07/24/19 Time: 15:30 Rhythm: Other (Is tachycardia 130/min) Rate (Beats/Min): 130 [place]: LAD-Left [place] Deviation P-Wave: Enlarged (Consider right atrial hypertrophy.) QRS: Other (There is left ventricular appear to be pattern with repolarization abnormality. There are Q waves V1, V2, V3 and near Q wave in V4 combined with an old anteroseptal myocardial infarction.) ST-T: Other QT: Normal EKG Interpretation Comments: Abnormal ECG with no signs of acute ischemic change. Course - Vital Signs Last Recorded V/S: Last Vital Signs Temp 36.1 C 07/24/19 15:38 Pulse 125 H 07/24/19 15:38 Resp 16 07/24/19 15:38 BP 166/105 H 07/24/19 15:38 Pulse Ox 93 L 07/24/19 15:38 - Orders/Labs/Meds Orders: Active Orders 24 hr Category Date Time Status EKG Documentation Completion [RC] ASDIRECTED Care 07/24/19 17:42 Active EKG Documentation Completion [RC] STAT Care 07/24/19 17:43 Active Chest 1V Frontal [CR] Stat Exams 07/24/19 15:42 Taken DRUG SCREEN, URINE [URCHEM] Stat Lab 07/24/19 15:43 Ordered URINALYSIS W/MICROSCOPIC [UA W/MICROSCOPIC] [URIN] Stat Lab 07/24/19 15:43 Ordered Dextrose 5%-0.9% NaCl [Dextrose 5%-Normal Saline] 1,000 Med 07/24/19 15:45 Active ml IV ASDIRECTED Heparin Sodium Med 07/24/19 18:21 Once 4,200 units IVPUSH .BOLUS ONE Heparin Sodium/D5W [Heparin 25,000 Units in D5W 500 ML] Med 07/24/19 18:30 Ordered 25,000 units in 500 ml IV ASDIRECTED Nitroglycerin/D5W [Nitroglycerin 25 MG/D5W 250 ML] Med 07/24/19 18:00 Active 25 mg in 250 ml IV TITRATE EKG 12 Lead [EK] Stat Ther 07/24/19 17:42 Ordered Medication Orders Heparin Sodium (Porcine) (Heparin Sodium) 4,200 units IVPUSH .BOLUS ONE Stop: 07/24/19 18:22 Dextrose/Sodium Chloride (Dextrose 5%-Normal Saline) 1,000 mls @ 500 mls/hr IV ASDIRECTED GABRIELA Last Admin: 07/24/19 15:51 Dose: 500 mls/hr Nitroglycerin/Dextrose (Nitroglycerin 25 Mg/D5w 250 Ml) 25 mg in 250 mls @ 6 mls/hr IV TITRATE GABRIELA; Protocol Last Admin: 07/24/19 18:03 Dose: 10 mcg/min, 6 mls/hr Heparin Sodium/Dextrose (Heparin 25,000 Units In D5w 500 Ml) 25,000 units in 500 mls @ 18 mls/hr IV ASDIRECTED GABRIELA Labs: Laboratory Tests 07/24/19 07/24/19 07/24/19 Range/Units 16:30 16:30 16:30 WBC 4.95 (4.23-9.07) K/mm3 RBC 4.94 (4.63-6.08) M/mm3 Hgb 15.7 (13.7-17.5) gm/dl Hct 46.3 (40.1-51.0) % MCV 93.7 H (79.0-92.2) fl MCH 31.8 (25.7-32.2) pg MCHC 33.9 (32.2-35.5) g/dl RDW Std Deviation 45.1 H (35.1-43.9) fL Plt Count 217 D (163-337) K/mm3 MPV 9.3 L (9.4-12.3) fl Neut % (Auto) 58.5 (34.0-67.9) % Lymph % (Auto) 24.4 (21.8-53.1) % [place] % (Auto) 14.9 H (5.3-12.2) % Eos % (Auto) 1.0 (0.8-7.0) Baso % (Auto) 1.0 (0.1-1.2) % Neut # (Auto) 2.89 (1.78-5.38) K/mm3 Lymph # (Auto) 1.21 L (1.32-3.57) K/mm3 [place] # (Auto) 0.74 (0.30-0.82) K/mm3 Eos # (Auto) 0.05 (0.04-0.54) K/mm3 Baso # (Auto) 0.05 (0.01-0.08) K/mm3 PT 10.8 (9.7-12.0) SECONDS INR 0.99 APTT 27 (22-31) SECONDS Sodium 140 (136-145) mEq/L Potassium 3.5 (3.5-5.1) mEq/L Chloride 101 (98-107) mEq/L Carbon Dioxide 29 (21-32) mEq/L Anion Gap 13.5 (5-15) BUN 5 L (7-18) mg/dL Creatinine 1.0 (0.7-1.3) mg/dL Est Cr Clr Drug Dosing TNP Estimated GFR (MDRD) > 60 (>60) mL/min BUN/Creatinine Ratio 5.0 L (14-18) Glucose 158 H (74-106) mg/dL Lactic Acid (0.4-2.0) mmol/L Calcium 7.9 L (8.5-10.1) mg/dL Magnesium 1.9 (1.8-2.4) mg/dl Total Bilirubin 0.3 (0.2-1.0) mg/dL AST 37 (15-37) U/L ALT 69 H (16-63) U/L Alkaline Phosphatase 85 (46-116) U/L CK-MB (CK-2) 3.9 H (0-3.6) ng/ml Troponin I 0.235 H* (0.00-0.056) ng/mL C-Reactive Protein <0.2 (<1.0) mg/dL NT-Pro-B Natriuret Pep (0-125) pg/mL Total Protein 7.7 (6.4-8.2) g/dl Albumin 3.9 (3.4-5.0) g/dl Globulin 3.8 gm/dL Albumin/Globulin Ratio 1.0 (1-2) Lipase (73-393) U/L Ethyl Alcohol 0.29 (0.00) gm% Ketones (0.0-0.3) mM 07/24/19 07/24/19 07/24/19 Range/Units 16:30 16:30 16:30 WBC (4.23-9.07) K/mm3 RBC (4.63-6.08) M/mm3 Hgb (13.7-17.5) gm/dl Hct (40.1-51.0) % MCV (79.0-92.2) fl MCH (25.7-32.2) pg MCHC (32.2-35.5) g/dl RDW Std Deviation (35.1-43.9) fL Plt Count (163-337) K/mm3 MPV (9.4-12.3) fl Neut % (Auto) (34.0-67.9) % Lymph % (Auto) (21.8-53.1) % [place] % (Auto) (5.3-12.2) % Eos % (Auto) (0.8-7.0) Baso % (Auto) (0.1-1.2) % Neut # (Auto) (1.78-5.38) K/mm3 Lymph # (Auto) (1.32-3.57) K/mm3 [place] # (Auto) (0.30-0.82) K/mm3 Eos # (Auto) (0.04-0.54) K/mm3 Baso # (Auto) (0.01-0.08) K/mm3 PT (9.7-12.0) SECONDS INR APTT (22-31) SECONDS Sodium (136-145) mEq/L Potassium (3.5-5.1) mEq/L Chloride (98-107) mEq/L Carbon Dioxide (21-32) mEq/L Anion Gap (5-15) BUN (7-18) mg/dL Creatinine (0.7-1.3) mg/dL Est Cr Clr Drug Dosing Estimated GFR (MDRD) (>60) mL/min BUN/Creatinine Ratio (14-18) Glucose (74-106) mg/dL Lactic Acid (0.4-2.0) mmol/L Calcium (8.5-10.1) mg/dL Magnesium (1.8-2.4) mg/dl Total Bilirubin (0.2-1.0) mg/dL AST (15-37) U/L ALT (16-63) U/L Alkaline Phosphatase (46-116) U/L CK-MB (CK-2) (0-3.6) ng/ml Troponin I (0.00-0.056) ng/mL C-Reactive Protein (<1.0) mg/dL NT-Pro-B Natriuret Pep 621 H (0-125) pg/mL Total Protein (6.4-8.2) g/dl Albumin (3.4-5.0) g/dl Globulin gm/dL Albumin/Globulin Ratio (1-2) Lipase 1421 H (73-393) U/L Ethyl Alcohol (0.00) gm% Ketones 0.10 (0.0-0.3) mM /17/20 Range/Units 16:47 WBC (4.23-9.07) K/mm3 RBC (4.63-6.08) M/mm3 Hgb (13.7-17.5) gm/dl Hct (40.1-51.0) % MCV (79.0-92.2) fl MCH (25.7-32.2) pg MCHC (32.2-35.5) g/dl RDW Std Deviation (35.1-43.9) fL Plt Count (163-337) K/mm3 MPV (9.4-12.3) fl Neut % (Auto) (34.0-67.9) % Lymph % (Auto) (21.8-53.1) % [place] % (Auto) (5.3-12.2) % Eos % (Auto) (0.8-7.0) Baso % (Auto) (0.1-1.2) % Neut # (Auto) (1.78-5.38) K/mm3 Lymph # (Auto) (1.32-3.57) K/mm3 [place] # (Auto) (0.30-0.82) K/mm3 Eos # (Auto) (0.04-0.54) K/mm3 Baso # (Auto) (0.01-0.08) K/mm3 PT (9.7-12.0) SECONDS INR APTT (22-31) SECONDS Sodium (136-145) mEq/L Potassium (3.5-5.1) mEq/L Chloride (98-107) mEq/L Carbon Dioxide (21-32) mEq/L Anion Gap (5-15) BUN (7-18) mg/dL Creatinine (0.7-1.3) mg/dL Est Cr Clr Drug Dosing Estimated GFR (MDRD) (>60) mL/min BUN/Creatinine Ratio (14-18) Glucose (74-106) mg/dL Lactic Acid 3.2 H* (0.4-2.0) mmol/L Calcium (8.5-10.1) mg/dL Magnesium (1.8-2.4) mg/dl Total Bilirubin (0.2-1.0) mg/dL AST (15-37) U/L ALT (16-63) U/L Alkaline Phosphatase (46-116) U/L CK-MB (CK-2) (0-3.6) ng/ml Troponin I (0.00-0.056) ng/mL C-Reactive Protein (<1.0) mg/dL NT-Pro-B Natriuret Pep (0-125) pg/mL Total Protein (6.4-8.2) g/dl Albumin (3.4-5.0) g/dl Globulin gm/dL Albumin/Globulin Ratio (1-2) Lipase (73-393) U/L Ethyl Alcohol (0.00) gm% Ketones (0.0-0.3) mM Meds: Medications Generic Name Dose Route Start Last Admin Trade Name Freq PRN Reason Stop Dose Admin Heparin Sodium (Porcine) 4,200 units 07/24/19 18:21 Heparin Sodium IVPUSH 07/24/19 18:22 .BOLUS ONE Dextrose/Sodium Chloride 1,000 mls @ 500 mls/hr 07/24/19 15:45 07/24/19 15:51 Dextrose 5%-Normal Saline IV 500 mls/hr ASDIRECTED GABRIELA Administration Nitroglycerin/Dextrose 25 mg in 250 mls @ 6 mls/hr 07/24/19 18:00 07/24/19 18 :03 Nitroglycerin 25 Mg/D5w 250 Ml IV 10 mcg/min TITRATE GABRIELA 6 mls/hr Administration Protocol 10 MCG/MIN Heparin Sodium/Dextrose 25,000 units in 500 mls @ 18 mls/hr 07/24/19 18:30 Heparin 25,000 Units In D5w 500 Ml IV ASDIRECTED GABRIELA 900 UNITS/HR Discontinued Medications Generic Name Dose Route Start Last Admin Trade Name Alonsoq PRN Reason Stop Dose Admin Diphenhydramine HCl 25 mg 07/24/19 15:47 07/24/19 15:56 Benadryl IVPUSH 07/24/19 15:48 25 mg ONETIME ONE Administration Lorazepam 1 mg 07/24/19 15:40 07/24/19 15:52 Ativan IVPUSH 07/24/19 15:41 1 mg ONETIME ONE Administration Metoclopramide HCl 7.5 mg 07/24/19 15:41 07/24/19 15:53 Reglan IVPUSH 07/24/19 15:42 7.5 mg ONETIME ONE Administration - Radiology Interpretation Free Text/Narrative:: 48-year-old male presents to the ED per [facility] complaining of central chest pressure heaviness probably since midmorning today. He is very vague about when it started he states is intensified as the day is gone on. He indicates that he is been drinking alcohol for the last 2 to 3 days and has not been taking any of his cardiac medications or Plavix and/or aspirin. He has a history of a large anteroseptal myocardial infarction. The ECG shows sinus tachycardia at 132/min without any signs of ischemic change. Still smoking cigarettes daily as well. Usually 5-10. He has had morphine 4 mg IV and Zofran 4 mg IV administered by paramedics without relief of his discomfort. He is on Ativan 0.5 mg 3 times daily. He appears extremely anxious and agitated at this time. Plan cardiac work-up will be commenced. Since there is no ischemia on his ECG I will not place him on a nitroglycerin drip. Paramedics did give him 4 baby aspirin chewed. IV will be D5 normal saline at 500 mils per hour as he is been drinking alcohol fairly heavily for the last 2 to 3 days. Is unclear when he last ate. I am going to give him Ativan 1 mg IV with Reglan 7.5 g IV and Benadryl 25 mg IV to relieve some of his anxiety state. Cardiac work-up will be commenced. - Re-Assessments/Exams Free Text/Narrative Re-Assessment/Exam: 07/24/19 16:49 Hematology is back revealing a normal white count at 4.95. The auto differential is 58% neutrophils. Hemoglobin is 15.7 with hematocrit of 46.3. MCV is slightly elevated at 93.7. Platelet count 217,000. Chemistry is pending. Patient has been able to relax and sleep since receiving IV Ativan and Benadryl. Rate is down to 101 and sinus tachycardia. BP is 115/99. Sats are 93% on room air 07/24/19 17:05 test x-ray done portably reveals hyperinflated lung tomas. Borderline cardiomegaly. There is a defibrillator pacemaker in the left upper quadrant of the chest. 07/24/19 17:41 PTis 10.8 with an INR of 0.99. PTT is 27. Sodium 140 with potassium low normal at 3.5. Chloride is 101 with a bicarb of 29. Anion gap is 13.5. BUN is 5 with a creatinine of 1.0. GFR remains greater than 60. Glucose is 158. Lactic acid is 3.2 which is elevated calcium is 7.9 magnesium 1.9 bilirubin 0.3 with an AST of 37 ALT of 69 alk phosphatase 85. CK-MB fraction is mildly elevated at 3.9 troponin I is elevated at 0.235. C-reactive protein is less than 0.2. Total protein is 7.7. Blood alcohol is 0.29 g%. Patient therefore rules in for a myocardial infarction. I will repeat his ECG as the initial one revealed a sinus tachycardia 130 due to his anxiety. His heart rate is currently 103 sinus tachycardia. BNP is pending 07/24/19 17:50 repeat ECG at 1743 hrs. is essentially unchanged from the first 1. He has a sinus tachycardia 100/min. Occasional PVCs. Biatrial enlargement evident. Left ventricular appear to be with strain pattern evident. Q waves V1 to V3 and near Q wave V4 suggesting old anteroseptal myocardial infarction. T wave flattening in leads I and aVL which is nonspecific. 07/24/19 18:25 BNP is returned at 621. Lipase is elevated at 1421 indicating mild pancreatitis as well. Ketones came back at 0.10. Discussed case with on- call keyboard action assembler at [facility] where he receives care in [place]. Plan he will be started nitroglycerin drip at 10 mcg/min blood pressure limiting. Oxygen at 2 L/min has been started because his sats dipped down to 91% when he is falling asleep. He still complains that his chest pain is 8 out of 10 which I do not believe. 07/24/19 18:44 patient will be transported to [facility] after I spoke with the [address] Duenas has accepted care. She is currently working as a hospitalist at that facility. Patient has received Ativan 1 mg IV and fentanyl 50 mcg IV for chest pain and anxiety relief. Departure - Departure Time of Disposition: 18:46 Disposition: DC/Tfer to [facility] 02 Reason for Transfer *Q: Primary PCI Indicated Condition: Fair Clinical Impression: Acute coronary syndrome with high troponin, Lactic acidosis, Chest discomfort Acute alcohol intoxication Qualifiers: Complication of substance-induced condition: uncomplicated Qualified Code(s): F10.920 - Alcohol use, unspecified with intoxication, uncomplicated Pancreatitis, alcoholic, acute Qualifiers: Acute pancreatitis complication: unspecified Qualified Code(s): K85.20 - Alcohol induced acute pancreatitis without necrosis or infection Alcohol intoxication Qualifiers: Complication of substance-induced condition: uncomplicated Qualified Code(s): F10.920 - Alcohol use, unspecified with intoxication, uncomplicated Chest pain Qualifiers: Chest pain type: unspecified Qualified Code(s): R07.9 - Chest pain, unspecified Instructions: Alcohol Use Disorder, Coronary Artery Disease, Male Referrals: Jesse Pedroza MD [Primary Care Provider] - Forms: ED Department Discharge Sepsis Event Note - Focused Exam Vital Signs: Vital Signs Temp Pulse Resp BP Pulse Ox 07/24/19 15:38 36.1 C 125 H 16 166/105 H 93 L Date Exam was Performed: 07/24/19 Time Exam was Performed: 18:23 - My Orders Last 24 Hours: My Active Orders 07/24/19 15:42 Chest 1V Frontal [CR] Stat 07/24/19 15:43 DRUG SCREEN, URINE [URCHEM] Stat URINALYSIS W/MICROSCOPIC [UA W/MICROSCOPIC] [URIN] Stat 07/24/19 15:45 Dextrose 5%-0.9% NaCl [Dextrose 5%-Normal Saline] 1,000 ml IV ASDIRECTED 07/24/19 17:42 EKG Documentation Completion [RC] ASDIRECTED EKG 12 Lead [EK] Stat 07/24/19 17:43 EKG Documentation Completion [RC] STAT 07/24/19 18:00 Nitroglycerin/D5W [Nitroglycerin 25 MG/D5W 250 ML] 25 mg in 250 ml IV TITRATE 07/24/19 18:21 Heparin Sodium 4,200 units IVPUSH .BOLUS ONE 07/24/19 18:30 Heparin Sodium/D5W [Heparin 25,000 Units in D5W 500 ML] 25,000 units in 500 ml IV ASDIRECTED - Assessment/Plan Last 24 Hours: My Active Orders 07/24/19 15:42 Chest 1V Frontal [CR] Stat 07/24/19 15:43 DRUG SCREEN, URINE [URCHEM] Stat URINALYSIS W/MICROSCOPIC [UA W/MICROSCOPIC] [URIN] Stat 07/24/19 15:45 Dextrose 5%-0.9% NaCl [Dextrose 5%-Normal Saline] 1,000 ml IV ASDIRECTED 07/24/19 17:42 EKG Documentation Completion [RC] ASDIRECTED EKG 12 Lead [EK] Stat 07/24/19 17:43 EKG Documentation Completion [RC] STAT 07/24/19 18:00 Nitroglycerin/D5W [Nitroglycerin 25 MG/D5W 250 ML] 25 mg in 250 ml IV TITRATE 07/24/19 18:21 Heparin Sodium 4,200 units IVPUSH .BOLUS ONE 07/24/19 18:30 Heparin Sodium/D5W [Heparin 25,000 Units in D5W 500 ML] 25,000 units in 500 ml IV ASDIRECTED ED HPI GENERAL MEDICAL PROBLEM - General Chief Complaint: Chest Pain Stated Complaint: [facility] Time Seen by Provider: 07/24/19 15:40 Source of Information: Reports: Patient, EMS History Limitations: Reports: No Limitations - History of Present Illness INITIAL COMMENTS - FREE TEXT/NARRATIVE: 48-year-old male presents to the ED per [facility] complaining of central chest pain since midmorning around 10 or 11:00 today. He has a history of coronary artery disease with previous myocardial infarction. He still smokes 5 to 10 cigarettes/day. Denies any cough or sputum production. Denies any fever or chills. Indicates that he is been drinking alcohol fairly heavily for the last 2 to 3 days and has not taken any of his normal medications as he did not want them to interfere with the alcohol. Does not denies any nausea or vomiting. Paramedics administered aspirin 324 mg chewed by mouth and he was given morphine 4 mg IV with Zofran 4 mg IV for pain and nausea relief. his breath smellsstrongly of alcohol and his behavior id very dramatic. He presents in sinus tachycardia in the 130s. He is very anxious. Pain is felt primarily central sternum. Denies any radiation to his back neck jaw or upper extremities. Onset: Today, Gradual Onset Date: 07/24/19 (Vague as to when the chest pressure started.) Duration: Hour(s):, Constant, Other Location: Reports: Chest (Only the chest pressure discomfort gradually intensified over the last 5 to 6 hours.) Quality: Reports: Ache ( Chest discomfort. No radiation of pain is a deep ache or pressure.), Pressure Severity: Moderate Improves with: Reports: None (Comment 8 out of 10. No improvement with morphine 4 mg IV administered by the paramedics.) Worsens with: Reports: None Context: Denies: Activity, Exercise, Lifting, Sick Contact, Trauma, Other Associated Symptoms: Reports: Chest Pain, Loss of Appetite (He has not eaten much in the last 2 days), Malaise, Nausea/Vomiting, Shortness of Breath, Weakness (Mild nausea no vomiting). 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 This includes Plavix isosorbide lisinopril metoprolol lorazepam Paxil and trazodone) Middle Chest Pain Score (Numeric/FACES): 8 - Related Data Allergies Allergy/AdvReac Type Severity Reaction Status Date / Time No Known Allergies Allergy Verified 07/24/19 15:42 Home Meds: Home Meds Clopidogrel [Plavix] 75 mg PO DAILY 06/08/15 [History] Isosorbide Mononitrate [Imdur] 15 mg PO DAILY 06/08/15 [History] Lisinopril [Prinivil] 2.5 mg PO DAILY 06/08/15 [History] Zolpidem [Ambien] 5 - 10 mg PO BEDTIME 06/08/15 [History] traZODone 50 - 100 mg PO BEDTIME 06/08/15 [History] Aspirin [Halfprin] 81 mg PO DAILY 02/27/16 [History] LORazepam 0.5 mg PO TID PRN 11/06/16 [History] Metoprolol Succinate [Toprol XL] 50 mg PO BID 02/03/17 [History] PARoxetine [Paxil] 20 mg PO DAILY 02/03/17 [History] Azelastine HCl 2 spray PILAR BID 04/24/19 [History] Cyanocobalamin (Vitamin B-12) [B-12] 1,000 mcg PO DAILY 04/24/19 [History] Nitroglycerin 0.4 mg SL ASDIRECTED PRN 04/24/19 [History] Past Medical History HEENT History: Reports: Impaired Vision Other HEENT History: reading glasses Cardiovascular History: Reports: CAD, High Cholesterol, Hypertension, [place], Pacemaker, Stents Musculoskeletal History: Reports: Other (See Below) Other Musculoskeletal History: Right ankle fracture Neurological History: Reports: Head Trauma Psychiatric History: Reports: Addiction, Depression - Infectious Disease History Infectious Disease History: Reports: Chicken Pox - Past Surgical History Cardiovascular Surgical History: Reports: AICD, Coronary Artery Stent, Pacer Social & Family History - Family History Family Medical History: Noncontributory Cardiac: Reports: High Cholesterol, Hypertension, [place] OBGYN: Reports: - Caffeine Use Caffeine Use: Reports: Coffee, Soda - Living Situation & Occupation Living situation: Reports: Single Occupation: Disabled ED ROS GENERAL - Review of Systems Review Of Systems: See Below Constitutional: Reports: Malaise, Weakness, Fatigue, Decreased Appetite. Denies : Fever, Chills HEENT: Reports: No Symptoms Respiratory: Reports: Shortness of Breath. Denies: Wheezing, Pleuritic Chest Pain, Cough, Sputum, Hemoptysis Cardiovascular: Reports: Chest Pain, Blood Pressure Problem (Limbs he has central chest heaviness pressure discomfort.), Dyspnea on Exertion (Sometimes). Denies: Claudication, Edema, Lightheadedness, Orthopnea Endocrine: Reports: Fatigue GI/Abdominal: Reports: Decreased Appetite, Nausea. Denies: Hematemesis, Hematochezia, Vomiting : Reports: Frequency, Other ([place] x2) Musculoskeletal: Reports: Back Pain, Joint Pain (He sips neck at times) Skin: Reports: Bruising (This is easy as he is on Plavix and aspirin daily) Neurological: Reports: No Symptoms Psychiatric: Reports: Anxiety, Depression, Other (Chronic substance abuse with nicotine dependency and alcohol use) Hematologic/Lymphatic: Reports: No Symptoms Immunologic: Reports: No Symptoms ED EXAM, GENERAL - Physical Exam Exam: See Below Exam Limited By: No Limitations General Appearance: Alert, WD/WN, Anxious (Anxious.), Moderate Distress, Other ( Signs show temperature 36.1 heart rate is 125 and sinus tachycardia on the monitor. Respiratory to 16 O2 sats 93 to 95% on room air BP elevated 166 105.) Eye Exam: Bilateral Eye: Normal Inspection (No scleral icterus or blepharal pallor.), PERRL (No nystagmus) Nose: Normal Inspection Throat/Mouth: Other (Teeth are in need of). No: Normal Inspection, Normal Teeth ( dental work.), Normal Oropharynx ( Pharynx is slightly dry and mildly erythematous without exudate) Head: Atraumatic, Normocephalic, Other (No outward signs of any head or facial trauma) Neck: Normal Inspection, Full Range of Motion, Limited Range of Motion (It is on lateral rotation). No: Carotid Bruit, Lymphadenopathy (L), Lymphadenopathy ( R), Thyromegaly Respiratory/Chest: No Respiratory Distress, No Accessory Muscle Use, Decreased Breath Sounds, Other (Defibrillator pacemaker left upper anterior chest.). No: Normal Breath Sounds, Rales, Rhonchi, Wheezing (Steroid into the lower 50% lung tomas bilaterally compatible with COPD.) Cardiovascular: No Edema, No Gallop (Tachycardia 125 at rest), No JVD, No Murmur , No Rub, Tachycardia Peripheral Pulses: 2+: Posterior Tibial (L), Posterior Tibial (R), Dorsalis Pedis (L), Dorsalis Pedis (R), 3+: Carotid (L), Carotid (R) GI/Abdominal: Normal Bowel Sounds, Soft, Non-Tender, No Organomegaly, No Abnormal Bruit, No Mass, Pelvis Stable. No: Hepatomegaly, Splenomegaly Back Exam: Normal Inspection, Full Range of Motion. No: CVA Tenderness (L), CVA Tenderness (R) Extremities: Normal Inspection, Normal Range of Motion, Non-Tender, No Pedal Edema Neurological: Alert, Oriented, CN II-XII Intact, Normal Cognition, Normal Reflexes, No Motor/Sensory Deficits. No: Normal Gait (Tested) Psychiatric: Normal Mood, Anxious Skin Exam: Warm, Intact, Normal Color, No Rash EKG INTERPRETATION EKG Date: 07/24/19 Time: 15:30 Rhythm: Other (Is tachycardia 130/min) Rate (Beats/Min): 130 [place]: LAD-Left [place] Deviation P-Wave: Enlarged (Consider right atrial hypertrophy.) QRS: Other (There is left ventricular appear to be pattern with repolarization abnormality. There are Q waves V1, V2, V3 and near Q wave in V4 combined with an old anteroseptal myocardial infarction.) ST-T: Other QT: Normal EKG Interpretation Comments: Abnormal ECG with no signs of acute ischemic change. Course - Vital Signs Last Recorded V/S: Last Vital Signs Temp 36.1 C 07/24/19 15:38 Pulse 125 H 07/24/19 15:38 Resp 16 07/24/19 15:38 BP 166/105 H 07/24/19 15:38 Pulse Ox 93 L 07/24/19 15:38 - Orders/Labs/Meds Orders: Active Orders 24 hr Category Date Time Status EKG Documentation Completion [RC] ASDIRECTED Care 07/24/19 17:42 Active EKG Documentation Completion [RC] STAT Care 07/24/19 17:43 Active Chest 1V Frontal [CR] Stat Exams 07/24/19 15:42 Taken DRUG SCREEN, URINE [URCHEM] Stat Lab 07/24/19 15:43 Ordered URINALYSIS W/MICROSCOPIC [UA W/MICROSCOPIC] [URIN] Stat Lab 07/24/19 15:43 Ordered Dextrose 5%-0.9% NaCl [Dextrose 5%-Normal Saline] 1,000 Med 07/24/19 15:45 Active ml IV ASDIRECTED Heparin Sodium Med 07/24/19 18:21 Once 4,200 units IVPUSH .BOLUS ONE Heparin Sodium/D5W [Heparin 25,000 Units in D5W 500 ML] Med 07/24/19 18:30 Ordered 25,000 units in 500 ml IV ASDIRECTED Nitroglycerin/D5W [Nitroglycerin 25 MG/D5W 250 ML] Med 07/24/19 18:00 Active 25 mg in 250 ml IV TITRATE EKG 12 Lead [EK] Stat Ther 07/24/19 17:42 Ordered Medication Orders Heparin Sodium (Porcine) (Heparin Sodium) 4,200 units IVPUSH .BOLUS ONE Stop: 07/24/19 18:22 Dextrose/Sodium Chloride (Dextrose 5%-Normal Saline) 1,000 mls @ 500 mls/hr IV ASDIRECTED GABRIELA Last Admin: 07/24/19 15:51 Dose: 500 mls/hr Nitroglycerin/Dextrose (Nitroglycerin 25 Mg/D5w 250 Ml) 25 mg in 250 mls @ 6 mls/hr IV TITRATE GABRIELA; Protocol Last Admin: 07/24/19 18:03 Dose: 10 mcg/min, 6 mls/hr Heparin Sodium/Dextrose (Heparin 25,000 Units In D5w 500 Ml) 25,000 units in 500 mls @ 18 mls/hr IV ASDIRECTED GABRIELA Labs: Laboratory Tests 07/24/19 07/24/19 07/24/19 Range/Units 16:30 16:30 16:30 WBC 4.95 (4.23-9.07) K/mm3 RBC 4.94 (4.63-6.08) M/mm3 Hgb 15.7 (13.7-17.5) gm/dl Hct 46.3 (40.1-51.0) % MCV 93.7 H (79.0-92.2) fl MCH 31.8 (25.7-32.2) pg MCHC 33.9 (32.2-35.5) g/dl RDW Std Deviation 45.1 H (35.1-43.9) fL Plt Count 217 D (163-337) K/mm3 MPV 9.3 L (9.4-12.3) fl Neut % (Auto) 58.5 (34.0-67.9) % Lymph % (Auto) 24.4 (21.8-53.1) % [place] % (Auto) 14.9 H (5.3-12.2) % Eos % (Auto) 1.0 (0.8-7.0) Baso % (Auto) 1.0 (0.1-1.2) % Neut # (Auto) 2.89 (1.78-5.38) K/mm3 Lymph # (Auto) 1.21 L (1.32-3.57) K/mm3 [place] # (Auto) 0.74 (0.30-0.82) K/mm3 Eos # (Auto) 0.05 (0.04-0.54) K/mm3 Baso # (Auto) 0.05 (0.01-0.08) K/mm3 PT 10.8 (9.7-12.0) SECONDS INR 0.99 APTT 27 (22-31) SECONDS Sodium 140 (136-145) mEq/L Potassium 3.5 (3.5-5.1) mEq/L Chloride 101 (98-107) mEq/L Carbon Dioxide 29 (21-32) mEq/L Anion Gap 13.5 (5-15) BUN 5 L (7-18) mg/dL Creatinine 1.0 (0.7-1.3) mg/dL Est Cr Clr Drug Dosing TNP Estimated GFR (MDRD) > 60 (>60) mL/min BUN/Creatinine Ratio 5.0 L (14-18) Glucose 158 H (74-106) mg/dL Lactic Acid (0.4-2.0) mmol/L Calcium 7.9 L (8.5-10.1) mg/dL Magnesium 1.9 (1.8-2.4) mg/dl Total Bilirubin 0.3 (0.2-1.0) mg/dL AST 37 (15-37) U/L ALT 69 H (16-63) U/L Alkaline Phosphatase 85 (46-116) U/L CK-MB (CK-2) 3.9 H (0-3.6) ng/ml Troponin I 0.235 H* (0.00-0.056) ng/mL C-Reactive Protein <0.2 (<1.0) mg/dL NT-Pro-B Natriuret Pep (0-125) pg/mL Total Protein 7.7 (6.4-8.2) g/dl Albumin 3.9 (3.4-5.0) g/dl Globulin 3.8 gm/dL Albumin/Globulin Ratio 1.0 (1-2) Lipase (73-393) U/L Ethyl Alcohol 0.29 (0.00) gm% Ketones (0.0-0.3) mM 07/24/19 07/24/19 07/24/19 Range/Units 16:30 16:30 16:30 WBC (4.23-9.07) K/mm3 RBC (4.63-6.08) M/mm3 Hgb (13.7-17.5) gm/dl Hct (40.1-51.0) % MCV (79.0-92.2) fl MCH (25.7-32.2) pg MCHC (32.2-35.5) g/dl RDW Std Deviation (35.1-43.9) fL Plt Count (163-337) K/mm3 MPV (9.4-12.3) fl Neut % (Auto) (34.0-67.9) % Lymph % (Auto) (21.8-53.1) % [place] % (Auto) (5.3-12.2) % Eos % (Auto) (0.8-7.0) Baso % (Auto) (0.1-1.2) % Neut # (Auto) (1.78-5.38) K/mm3 Lymph # (Auto) (1.32-3.57) K/mm3 [place] # (Auto) (0.30-0.82) K/mm3 Eos # (Auto) (0.04-0.54) K/mm3 Baso # (Auto) (0.01-0.08) K/mm3 PT (9.7-12.0) SECONDS INR APTT (22-31) SECONDS Sodium (136-145) mEq/L Potassium (3.5-5.1) mEq/L Chloride (98-107) mEq/L Carbon Dioxide (21-32) mEq/L Anion Gap (5-15) BUN (7-18) mg/dL Creatinine (0.7-1.3) mg/dL Est Cr Clr Drug Dosing Estimated GFR (MDRD) (>60) mL/min BUN/Creatinine Ratio (14-18) Glucose (74-106) mg/dL Lactic Acid (0.4-2.0) mmol/L Calcium (8.5-10.1) mg/dL Magnesium (1.8-2.4) mg/dl Total Bilirubin (0.2-1.0) mg/dL AST (15-37) U/L ALT (16-63) U/L Alkaline Phosphatase (46-116) U/L CK-MB (CK-2) (0-3.6) ng/ml Troponin I (0.00-0.056) ng/mL C-Reactive Protein (<1.0) mg/dL NT-Pro-B Natriuret Pep 621 H (0-125) pg/mL Total Protein (6.4-8.2) g/dl Albumin (3.4-5.0) g/dl Globulin gm/dL Albumin/Globulin Ratio (1-2) Lipase 1421 H (73-393) U/L Ethyl Alcohol (0.00) gm% Ketones 0.10 (0.0-0.3) mM / Range/Units 16:47 WBC (4.23-9.07) K/mm3 RBC (4.63-6.08) M/mm3 Hgb (13.7-17.5) gm/dl Hct (40.1-51.0) % MCV (79.0-92.2) fl MCH (25.7-32.2) pg MCHC (32.2-35.5) g/dl RDW Std Deviation (35.1-43.9) fL Plt Count (163-337) K/mm3 MPV (9.4-12.3) fl Neut % (Auto) (34.0-67.9) % Lymph % (Auto) (21.8-53.1) % [place] % (Auto) (5.3-12.2) % Eos % (Auto) (0.8-7.0) Baso % (Auto) (0.1-1.2) % Neut # (Auto) (1.78-5.38) K/mm3 Lymph # (Auto) (1.32-3.57) K/mm3 [place] # (Auto) (0.30-0.82) K/mm3 Eos # (Auto) (0.04-0.54) K/mm3 Baso # (Auto) (0.01-0.08) K/mm3 PT (9.7-12.0) SECONDS INR APTT (22-31) SECONDS Sodium (136-145) mEq/L Potassium (3.5-5.1) mEq/L Chloride (98-107) mEq/L Carbon Dioxide (21-32) mEq/L Anion Gap (5-15) BUN (7-18) mg/dL Creatinine (0.7-1.3) mg/dL Est Cr Clr Drug Dosing Estimated GFR (MDRD) (>60) mL/min BUN/Creatinine Ratio (14-18) Glucose (74-106) mg/dL Lactic Acid 3.2 H* (0.4-2.0) mmol/L Calcium (8.5-10.1) mg/dL Magnesium (1.8-2.4) mg/dl Total Bilirubin (0.2-1.0) mg/dL AST (15-37) U/L ALT (16-63) U/L Alkaline Phosphatase (46-116) U/L CK-MB (CK-2) (0-3.6) ng/ml Troponin I (0.00-0.056) ng/mL C-Reactive Protein (<1.0) mg/dL NT-Pro-B Natriuret Pep (0-125) pg/mL Total Protein (6.4-8.2) g/dl Albumin (3.4-5.0) g/dl Globulin gm/dL Albumin/Globulin Ratio (1-2) Lipase (73-393) U/L Ethyl Alcohol (0.00) gm% Ketones (0.0-0.3) mM Meds: Medications Generic Name Dose Route Start Last Admin Trade Name Freq PRN Reason Stop Dose Admin Heparin Sodium (Porcine) 4,200 units 07/24/19 18:21 Heparin Sodium IVPUSH 07/24/19 18:22 .BOLUS ONE Dextrose/Sodium Chloride 1,000 mls @ 500 mls/hr 07/24/19 15:45 07/24/19 15:51 Dextrose 5%-Normal Saline IV 500 mls/hr ASDIRECTED GABRIELA Administration Nitroglycerin/Dextrose 25 mg in 250 mls @ 6 mls/hr 07/24/19 18:00 07/24/19 18 :03 Nitroglycerin 25 Mg/D5w 250 Ml IV 10 mcg/min TITRATE GABRIELA 6 mls/hr Administration Protocol 10 MCG/MIN Heparin Sodium/Dextrose 25,000 units in 500 mls @ 18 mls/hr 07/24/19 18:30 Heparin 25,000 Units In D5w 500 Ml IV ASDIRECTED GABRIELA 900 UNITS/HR Discontinued Medications Generic Name Dose Route Start Last Admin Trade Name Chika PRN Reason Stop Dose Admin Diphenhydramine HCl 25 mg 07/24/19 15:47 07/24/19 15:56 Benadryl IVPUSH 07/24/19 15:48 25 mg ONETIME ONE Administration Lorazepam 1 mg 07/24/19 15:40 07/24/19 15:52 Ativan IVPUSH 07/24/19 15:41 1 mg ONETIME ONE Administration Metoclopramide HCl 7.5 mg 07/24/19 15:41 07/24/19 15:53 Reglan IVPUSH 07/24/19 15:42 7.5 mg ONETIME ONE Administration - Radiology Interpretation Free Text/Narrative:: 48-year-old male presents to the ED per [facility] complaining of central chest pressure heaviness probably since midmorning today. He is very vague about when it started he states is intensified as the day is gone on. He indicates that he is been drinking alcohol for the last 2 to 3 days and has not been taking any of his cardiac medications or Plavix and/or aspirin. He has a history of a large anteroseptal myocardial infarction. The ECG shows sinus tachycardia at 132/min without any signs of ischemic change. Still smoking cigarettes daily as well. Usually 5-10. He has had morphine 4 mg IV and Zofran 4 mg IV administered by paramedics without relief of his discomfort. He is on Ativan 0.5 mg 3 times daily. He appears extremely anxious and agitated at this time. Plan cardiac work-up will be commenced. Since there is no ischemia on his ECG I will not place him on a nitroglycerin drip. Paramedics did give him 4 baby aspirin chewed. IV will be D5 normal saline at 500 mils per hour as he is been drinking alcohol fairly heavily for the last 2 to 3 days. Is unclear when he last ate. I am going to give him Ativan 1 mg IV with Reglan 7.5 g IV and Benadryl 25 mg IV to relieve some of his anxiety state. Cardiac work-up will be commenced. - Re-Assessments/Exams Free Text/Narrative Re-Assessment/Exam: 07/24/19 16:49 Hematology is back revealing a normal white count at 4.95. The auto differential is 58% neutrophils. Hemoglobin is 15.7 with hematocrit of 46.3. MCV is slightly elevated at 93.7. Platelet count 217,000. Chemistry is pending. Patient has been able to relax and sleep since receiving IV Ativan and Benadryl. Rate is down to 101 and sinus tachycardia. BP is 115/99. Sats are 93% on room air 07/24/19 17:05 test x-ray done portably reveals hyperinflated lung tomas. Borderline cardiomegaly. There is a defibrillator pacemaker in the left upper quadrant of the chest. 07/24/19 17:41 PTis 10.8 with an INR of 0.99. PTT is 27. Sodium 140 with potassium low normal at 3.5. Chloride is 101 with a bicarb of 29. Anion gap is 13.5. BUN is 5 with a creatinine of 1.0. GFR remains greater than 60. Glucose is 158. Lactic acid is 3.2 which is elevated calcium is 7.9 magnesium 1.9 bilirubin 0.3 with an AST of 37 ALT of 69 alk phosphatase 85. CK-MB fraction is mildly elevated at 3.9 troponin I is elevated at 0.235. C-reactive protein is less than 0.2. Total protein is 7.7. Blood alcohol is 0.29 g%. Patient therefore rules in for a myocardial infarction. I will repeat his ECG as the initial one revealed a sinus tachycardia 130 due to his anxiety. His heart rate is currently 103 sinus tachycardia. BNP is pending 07/24/19 17:50 repeat ECG at 1743 hrs. is essentially unchanged from the first 1. He has a sinus tachycardia 100/min. Occasional PVCs. Biatrial enlargement evident. Left ventricular appear to be with strain pattern evident. Q waves V1 to V3 and near Q wave V4 suggesting old anteroseptal myocardial infarction. T wave flattening in leads I and aVL which is nonspecific. 07/24/19 18:25 BNP is returned at 621. Lipase is elevated at 1421 indicating mild pancreatitis as well. Ketones came back at 0.10. Discussed case with on- call keyboard action assembler at [facility] where he receives care in [place]. Plan he will be started nitroglycerin drip at 10 mcg/min blood pressure limiting. Oxygen at 2 L/min has been started because his sats dipped down to 91% when he is falling asleep. He still complains that his chest pain is 8 out of 10 which I do not believe. 07/24/19 18:44 patient will be transported to [facility] after I spoke with the [address] Duenas has accepted care. She is currently working as a hospitalist at that facility. Patient has received Ativan 1 mg IV and fentanyl 50 mcg IV for chest pain and anxiety relief. Departure - Departure Time of Disposition: 18:46 Disposition: DC/Tfer to [facility] 02 Reason for Transfer *Q: Primary PCI Indicated Condition: Fair Clinical Impression: Acute coronary syndrome with high troponin, Lactic acidosis, Chest discomfort Acute alcohol intoxication Qualifiers: Complication of substance-induced condition: uncomplicated Qualified Code(s): F10.920 - Alcohol use, unspecified with intoxication, uncomplicated Pancreatitis, alcoholic, acute Qualifiers: Acute pancreatitis complication: unspecified Qualified Code(s): K85.20 - Alcohol induced acute pancreatitis without necrosis or infection Alcohol intoxication Qualifiers: Complication of substance-induced condition: uncomplicated Qualified Code(s): F10.920 - Alcohol use, unspecified with intoxication, uncomplicated Chest pain Qualifiers: Chest pain type: unspecified Qualified Code(s): R07.9 - Chest pain, unspecified Instructions: Alcohol Use Disorder, Coronary Artery Disease, Male Referrals: Jesse Pedroza MD [Primary Care Provider] - Forms: ED Department Discharge Sepsis Event Note - Focused Exam Vital Signs: Vital Signs Temp Pulse Resp BP Pulse Ox 07/24/19 15:38 36.1 C 125 H 16 166/105 H 93 L Date Exam was Performed: 07/24/19 Time Exam was Performed: 18:23 - My Orders Last 24 Hours: My Active Orders 07/24/19 15:42 Chest 1V Frontal [CR] Stat 07/24/19 15:43 DRUG SCREEN, URINE [URCHEM] Stat URINALYSIS W/MICROSCOPIC [UA W/MICROSCOPIC] [URIN] Stat 07/24/19 15:45 Dextrose 5%-0.9% NaCl [Dextrose 5%-Normal Saline] 1,000 ml IV ASDIRECTED 07/24/19 17:42 EKG Documentation Completion [RC] ASDIRECTED EKG 12 Lead [EK] Stat 07/24/19 17:43 EKG Documentation Completion [RC] STAT 07/24/19 18:00 Nitroglycerin/D5W [Nitroglycerin 25 MG/D5W 250 ML] 25 mg in 250 ml IV TITRATE 07/24/19 18:21 Heparin Sodium 4,200 units IVPUSH .BOLUS ONE 07/24/19 18:30 Heparin Sodium/D5W [Heparin 25,000 Units in D5W 500 ML] 25,000 units in 500 ml IV ASDIRECTED - Assessment/Plan Last 24 Hours: My Active Orders 07/24/19 15:42 Chest 1V Frontal [CR] Stat 07/24/19 15:43 DRUG SCREEN, URINE [URCHEM] Stat URINALYSIS W/MICROSCOPIC [UA W/MICROSCOPIC] [URIN] Stat 07/24/19 15:45 Dextrose 5%-0.9% NaCl [Dextrose 5%-Normal Saline] 1,000 ml IV ASDIRECTED 07/24/19 17:42 EKG Documentation Completion [RC] ASDIRECTED EKG 12 Lead [EK] Stat 07/24/19 17:43 EKG Documentation Completion [RC] STAT 07/24/19 18:00 Nitroglycerin/D5W [Nitroglycerin 25 MG/D5W 250 ML] 25 mg in 250 ml IV TITRATE 07/24/19 18:21 Heparin Sodium 4,200 units IVPUSH .BOLUS ONE 07/24/19 18:30 Heparin Sodium/D5W [Heparin 25,000 Units in D5W 500 ML] 25,000 units in 500 ml IV ASDIRECTED ED HPI GENERAL MEDICAL PROBLEM - General Chief Complaint: Chest Pain Stated Complaint: [facility] Time Seen by Provider: 07/24/19 15:40 Source of Information: Reports: Patient, EMS History Limitations: Reports: No Limitations - History of Present Illness INITIAL COMMENTS - FREE TEXT/NARRATIVE: 48-year-old male presents to the ED per [facility] complaining of central chest pain since midmorning around 10 or 11:00 today. He has a history of coronary artery disease with previous myocardial infarction. He still smokes 5 to 10 cigarettes/day. Denies any cough or sputum production. Denies any fever or chills. Indicates that he is been drinking alcohol fairly heavily for the last 2 to 3 days and has not taken any of his normal medications as he did not want them to interfere with the alcohol. Does not denies any nausea or vomiting. Paramedics administered aspirin 324 mg chewed by mouth and he was given morphine 4 mg IV with Zofran 4 mg IV for pain and nausea relief. his breath smellsstrongly of alcohol and his behavior id very dramatic. He presents in sinus tachycardia in the 130s. He is very anxious. Pain is felt primarily central sternum. Denies any radiation to his back neck jaw or upper extremities. Onset: Today, Gradual Onset Date: 07/24/19 (Vague as to when the chest pressure started.) Duration: Hour(s):, Constant, Other Location: Reports: Chest (Only the chest pressure discomfort gradually intensified over the last 5 to 6 hours.) Quality: Reports: Ache ( Chest discomfort. No radiation of pain is a deep ache or pressure.), Pressure Severity: Moderate Improves with: Reports: None (Comment 8 out of 10. No improvement with morphine 4 mg IV administered by the paramedics.) Worsens with: Reports: None Context: Denies: Activity, Exercise, Lifting, Sick Contact, Trauma, Other Associated Symptoms: Reports: Chest Pain, Loss of Appetite (He has not eaten much in the last 2 days), Malaise, Nausea/Vomiting, Shortness of Breath, Weakness (Mild nausea no vomiting). 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 This includes Plavix isosorbide lisinopril metoprolol lorazepam Paxil and trazodone) Middle Chest Pain Score (Numeric/FACES): 8 - Related Data Allergies Allergy/AdvReac Type Severity Reaction Status Date / Time No Known Allergies Allergy Verified 07/24/19 15:42 Home Meds: Home Meds Clopidogrel [Plavix] 75 mg PO DAILY 06/08/15 [History] Isosorbide Mononitrate [Imdur] 15 mg PO DAILY 06/08/15 [History] Lisinopril [Prinivil] 2.5 mg PO DAILY 06/08/15 [History] Zolpidem [Ambien] 5 - 10 mg PO BEDTIME 06/08/15 [History] traZODone 50 - 100 mg PO BEDTIME 06/08/15 [History] Aspirin [Halfprin] 81 mg PO DAILY 02/27/16 [History] LORazepam 0.5 mg PO TID PRN 11/06/16 [History] Metoprolol Succinate [Toprol XL] 50 mg PO BID 02/03/17 [History] PARoxetine [Paxil] 20 mg PO DAILY 02/03/17 [History] Azelastine HCl 2 spray PILAR BID 04/24/19 [History] Cyanocobalamin (Vitamin B-12) [B-12] 1,000 mcg PO DAILY 04/24/19 [History] Nitroglycerin 0.4 mg SL ASDIRECTED PRN 04/24/19 [History] Past Medical History HEENT History: Reports: Impaired Vision Other HEENT History: reading glasses Cardiovascular History: Reports: CAD, High Cholesterol, Hypertension, [place], Pacemaker, Stents Musculoskeletal History: Reports: Other (See Below) Other Musculoskeletal History: Right ankle fracture Neurological History: Reports: Head Trauma Psychiatric History: Reports: Addiction, Depression - Infectious Disease History Infectious Disease History: Reports: Chicken Pox - Past Surgical History Cardiovascular Surgical History: Reports: AICD, Coronary Artery Stent, Pacer Social & Family History - Family History Family Medical History: Noncontributory Cardiac: Reports: High Cholesterol, Hypertension, [place] OBGYN: Reports: - Caffeine Use Caffeine Use: Reports: Coffee, Soda - Living Situation & Occupation Living situation: Reports: Single Occupation: Disabled ED [facility] - Review of Systems Review Of Systems: See Below Constitutional: Reports: Malaise, Weakness, Fatigue, Decreased Appetite. Denies : Fever, Chills HEENT: Reports: No Symptoms Respiratory: Reports: Shortness of Breath. Denies: Wheezing, Pleuritic Chest Pain, Cough, Sputum, Hemoptysis Cardiovascular: Reports: Chest Pain, Blood Pressure Problem (Limbs he has central chest heaviness pressure discomfort.), Dyspnea on Exertion (Sometimes). Denies: Claudication, Edema, Lightheadedness, Orthopnea Endocrine: Reports: Fatigue GI/Abdominal: Reports: Decreased Appetite, Nausea. Denies: Hematemesis, Hematochezia, Vomiting : Reports: Frequency, Other ([place] x2) Musculoskeletal: Reports: Back Pain, Joint Pain (He sips neck at times) Skin: Reports: Bruising (This is easy as he is on Plavix and aspirin daily) Neurological: Reports: No Symptoms Psychiatric: Reports: Anxiety, Depression, Other (Chronic substance abuse with nicotine dependency and alcohol use) Hematologic/Lymphatic: Reports: No Symptoms Immunologic: Reports: No Symptoms ED EXAM, GENERAL - Physical Exam Exam: See Below Exam Limited By: No Limitations General Appearance: Alert, WD/WN, Anxious (Anxious.), Moderate Distress, Other ( Signs show temperature 36.1 heart rate is 125 and sinus tachycardia on the monitor. Respiratory to 16 O2 sats 93 to 95% on room air BP elevated 166 105.) Eye Exam: Bilateral Eye: Normal Inspection (No scleral icterus or blepharal pallor.), PERRL (No nystagmus) Nose: Normal Inspection Throat/Mouth: Other (Teeth are in need of). No: Normal Inspection, Normal Teeth ( dental work.), Normal Oropharynx ( Pharynx is slightly dry and mildly erythematous without exudate) Head: Atraumatic, Normocephalic, Other (No outward signs of any head or facial trauma) Neck: Normal Inspection, Full Range of Motion, Limited Range of Motion (It is on lateral rotation). No: Carotid Bruit, Lymphadenopathy (L), Lymphadenopathy ( R), Thyromegaly Respiratory/Chest: No Respiratory Distress, No Accessory Muscle Use, Decreased Breath Sounds, Other (Defibrillator pacemaker left upper anterior chest.). No: Normal Breath Sounds, Rales, Rhonchi, Wheezing (Steroid into the lower 50% lung tomas bilaterally compatible with COPD.) Cardiovascular: No Edema, No Gallop (Tachycardia 125 at rest), No JVD, No Murmur , No Rub, Tachycardia Peripheral Pulses: 2+: Posterior Tibial (L), Posterior Tibial (R), Dorsalis Pedis (L), Dorsalis Pedis (R), 3+: Carotid (L), Carotid (R) GI/Abdominal: Normal Bowel Sounds, Soft, Non-Tender, No Organomegaly, No Abnormal Bruit, No Mass, Pelvis Stable. No: Hepatomegaly, Splenomegaly Back Exam: Normal Inspection, Full Range of Motion. No: CVA Tenderness (L), CVA Tenderness (R) Extremities: Normal Inspection, Normal Range of Motion, Non-Tender, No Pedal Edema Neurological: Alert, Oriented, CN II-XII Intact, Normal Cognition, Normal Reflexes, No Motor/Sensory Deficits. No: Normal Gait (Tested) Psychiatric: Normal Mood, Anxious Skin Exam: Warm, Intact, Normal Color, No Rash EKG INTERPRETATION EKG Date: 07/24/19 Time: 15:30 Rhythm: Other (Is tachycardia 130/min) Rate (Beats/Min): 130 [place]: LAD-Left [place] Deviation P-Wave: Enlarged (Consider right atrial hypertrophy.) QRS: Other (There is left ventricular appear to be pattern with repolarization abnormality. There are Q waves V1, V2, V3 and near Q wave in V4 combined with an old anteroseptal myocardial infarction.) ST-T: Other QT: Normal EKG Interpretation Comments: Abnormal ECG with no signs of acute ischemic change. Course - Vital Signs Last Recorded V/S: Last Vital Signs Temp 36.1 C 07/24/19 15:38 Pulse 125 H 07/24/19 15:38 Resp 16 07/24/19 15:38 BP 166/105 H 07/24/19 15:38 Pulse Ox 93 L 07/24/19 15:38 - Orders/Labs/Meds Orders: Active Orders 24 hr Category Date Time Status EKG Documentation Completion [RC] ASDIRECTED Care 07/24/19 17:42 Active EKG Documentation Completion [RC] STAT Care 07/24/19 17:43 Active Chest 1V Frontal [CR] Stat Exams 07/24/19 15:42 Taken DRUG SCREEN, URINE [URCHEM] Stat Lab 07/24/19 15:43 Ordered URINALYSIS W/MICROSCOPIC [UA W/MICROSCOPIC] [URIN] Stat Lab 07/24/19 15:43 Ordered Dextrose 5%-0.9% NaCl [Dextrose 5%-Normal Saline] 1,000 Med 07/24/19 15:45 Active ml IV ASDIRECTED Heparin Sodium Med 07/24/19 18:21 Once 4,200 units IVPUSH .BOLUS ONE Heparin Sodium/D5W [Heparin 25,000 Units in D5W 500 ML] Med 07/24/19 18:30 Ordered 25,000 units in 500 ml IV ASDIRECTED Nitroglycerin/D5W [Nitroglycerin 25 MG/D5W 250 ML] Med 07/24/19 18:00 Active 25 mg in 250 ml IV TITRATE EKG 12 Lead [EK] Stat Ther 07/24/19 17:42 Ordered Medication Orders Heparin Sodium (Porcine) (Heparin Sodium) 4,200 units IVPUSH .BOLUS ONE Stop: 07/24/19 18:22 Dextrose/Sodium Chloride (Dextrose 5%-Normal Saline) 1,000 mls @ 500 mls/hr IV ASDIRECTED GABRIELA Last Admin: 07/24/19 15:51 Dose: 500 mls/hr Nitroglycerin/Dextrose (Nitroglycerin 25 Mg/D5w 250 Ml) 25 mg in 250 mls @ 6 mls/hr IV TITRATE GABRIELA; Protocol Last Admin: 07/24/19 18:03 Dose: 10 mcg/min, 6 mls/hr Heparin Sodium/Dextrose (Heparin 25,000 Units In D5w 500 Ml) 25,000 units in 500 mls @ 18 mls/hr IV ASDIRECTED GABRIELA Labs: Laboratory Tests 07/24/19 07/24/19 07/24/19 Range/Units 16:30 16:30 16:30 WBC 4.95 (4.23-9.07) K/mm3 RBC 4.94 (4.63-6.08) M/mm3 Hgb 15.7 (13.7-17.5) gm/dl Hct 46.3 (40.1-51.0) % MCV 93.7 H (79.0-92.2) fl MCH 31.8 (25.7-32.2) pg MCHC 33.9 (32.2-35.5) g/dl RDW Std Deviation 45.1 H (35.1-43.9) fL Plt Count 217 D (163-337) K/mm3 MPV 9.3 L (9.4-12.3) fl Neut % (Auto) 58.5 (34.0-67.9) % Lymph % (Auto) 24.4 (21.8-53.1) % [place] % (Auto) 14.9 H (5.3-12.2) % Eos % (Auto) 1.0 (0.8-7.0) Baso % (Auto) 1.0 (0.1-1.2) % Neut # (Auto) 2.89 (1.78-5.38) K/mm3 Lymph # (Auto) 1.21 L (1.32-3.57) K/mm3 [place] # (Auto) 0.74 (0.30-0.82) K/mm3 Eos # (Auto) 0.05 (0.04-0.54) K/mm3 Baso # (Auto) 0.05 (0.01-0.08) K/mm3 PT 10.8 (9.7-12.0) SECONDS INR 0.99 APTT 27 (22-31) SECONDS Sodium 140 (136-145) mEq/L Potassium 3.5 (3.5-5.1) mEq/L Chloride 101 (98-107) mEq/L Carbon Dioxide 29 (21-32) mEq/L Anion Gap 13.5 (5-15) BUN 5 L (7-18) mg/dL Creatinine 1.0 (0.7-1.3) mg/dL Est Cr Clr Drug Dosing TNP Estimated GFR (MDRD) > 60 (>60) mL/min BUN/Creatinine Ratio 5.0 L (14-18) Glucose 158 H (74-106) mg/dL Lactic Acid (0.4-2.0) mmol/L Calcium 7.9 L (8.5-10.1) mg/dL Magnesium 1.9 (1.8-2.4) mg/dl Total Bilirubin 0.3 (0.2-1.0) mg/dL AST 37 (15-37) U/L ALT 69 H (16-63) U/L Alkaline Phosphatase 85 (46-116) U/L CK-MB (CK-2) 3.9 H (0-3.6) ng/ml Troponin I 0.235 H* (0.00-0.056) ng/mL C-Reactive Protein <0.2 (<1.0) mg/dL NT-Pro-B Natriuret Pep (0-125) pg/mL Total Protein 7.7 (6.4-8.2) g/dl Albumin 3.9 (3.4-5.0) g/dl Globulin 3.8 gm/dL Albumin/Globulin Ratio 1.0 (1-2) Lipase (73-393) U/L Ethyl Alcohol 0.29 (0.00) gm% Ketones (0.0-0.3) mM 07/24/19 07/24/19 07/24/19 Range/Units 16:30 16:30 16:30 WBC (4.23-9.07) K/mm3 RBC (4.63-6.08) M/mm3 Hgb (13.7-17.5) gm/dl Hct (40.1-51.0) % MCV (79.0-92.2) fl MCH (25.7-32.2) pg MCHC (32.2-35.5) g/dl RDW Std Deviation (35.1-43.9) fL Plt Count (163-337) K/mm3 MPV (9.4-12.3) fl Neut % (Auto) (34.0-67.9) % Lymph % (Auto) (21.8-53.1) % [place] % (Auto) (5.3-12.2) % Eos % (Auto) (0.8-7.0) Baso % (Auto) (0.1-1.2) % Neut # (Auto) (1.78-5.38) K/mm3 Lymph # (Auto) (1.32-3.57) K/mm3 [place] # (Auto) (0.30-0.82) K/mm3 Eos # (Auto) (0.04-0.54) K/mm3 Baso # (Auto) (0.01-0.08) K/mm3 PT (9.7-12.0) SECONDS INR APTT (22-31) SECONDS Sodium (136-145) mEq/L Potassium (3.5-5.1) mEq/L Chloride (98-107) mEq/L Carbon Dioxide (21-32) mEq/L Anion Gap (5-15) BUN (7-18) mg/dL Creatinine (0.7-1.3) mg/dL Est Cr Clr Drug Dosing Estimated GFR (MDRD) (>60) mL/min BUN/Creatinine Ratio (14-18) Glucose (74-106) mg/dL Lactic Acid (0.4-2.0) mmol/L Calcium (8.5-10.1) mg/dL Magnesium (1.8-2.4) mg/dl Total Bilirubin (0.2-1.0) mg/dL AST (15-37) U/L ALT (16-63) U/L Alkaline Phosphatase (46-116) U/L CK-MB (CK-2) (0-3.6) ng/ml Troponin I (0.00-0.056) ng/mL C-Reactive Protein (<1.0) mg/dL NT-Pro-B Natriuret Pep 621 H (0-125) pg/mL Total Protein (6.4-8.2) g/dl Albumin (3.4-5.0) g/dl Globulin gm/dL Albumin/Globulin Ratio (1-2) Lipase 1421 H (73-393) U/L Ethyl Alcohol (0.00) gm% Ketones 0.10 (0.0-0.3) mM 05/17/20 Range/Units 16:47 WBC (4.23-9.07) K/mm3 RBC (4.63-6.08) M/mm3 Hgb (13.7-17.5) gm/dl Hct (40.1-51.0) % MCV (79.0-92.2) fl MCH (25.7-32.2) pg MCHC (32.2-35.5) g/dl RDW Std Deviation (35.1-43.9) fL Plt Count (163-337) K/mm3 MPV (9.4-12.3) fl Neut % (Auto) (34.0-67.9) % Lymph % (Auto) (21.8-53.1) % [place] % (Auto) (5.3-12.2) % Eos % (Auto) (0.8-7.0) Baso % (Auto) (0.1-1.2) % Neut # (Auto) (1.78-5.38) K/mm3 Lymph # (Auto) (1.32-3.57) K/mm3 [place] # (Auto) (0.30-0.82) K/mm3 Eos # (Auto) (0.04-0.54) K/mm3 Baso # (Auto) (0.01-0.08) K/mm3 PT (9.7-12.0) SECONDS INR APTT (22-31) SECONDS Sodium (136-145) mEq/L Potassium (3.5-5.1) mEq/L Chloride (98-107) mEq/L Carbon Dioxide (21-32) mEq/L Anion Gap (5-15) BUN (7-18) mg/dL Creatinine (0.7-1.3) mg/dL Est Cr Clr Drug Dosing Estimated GFR (MDRD) (>60) mL/min BUN/Creatinine Ratio (14-18) Glucose (74-106) mg/dL Lactic Acid 3.2 H* (0.4-2.0) mmol/L Calcium (8.5-10.1) mg/dL Magnesium (1.8-2.4) mg/dl Total Bilirubin (0.2-1.0) mg/dL AST (15-37) U/L ALT (16-63) U/L Alkaline Phosphatase (46-116) U/L CK-MB (CK-2) (0-3.6) ng/ml Troponin I (0.00-0.056) ng/mL C-Reactive Protein (<1.0) mg/dL NT-Pro-B Natriuret Pep (0-125) pg/mL Total Protein (6.4-8.2) g/dl Albumin (3.4-5.0) g/dl Globulin gm/dL Albumin/Globulin Ratio (1-2) Lipase (73-393) U/L Ethyl Alcohol (0.00) gm% Ketones (0.0-0.3) mM Meds: Medications Generic Name Dose Route Start Last Admin Trade Name Freq PRN Reason Stop Dose Admin Heparin Sodium (Porcine) 4,200 units 07/24/19 18:21 Heparin Sodium IVPUSH 07/24/19 18:22 .BOLUS ONE Dextrose/Sodium Chloride 1,000 mls @ 500 mls/hr 07/24/19 15:45 07/24/19 15:51 Dextrose 5%-Normal Saline IV 500 mls/hr ASDIRECTED GABRIELA Administration Nitroglycerin/Dextrose 25 mg in 250 mls @ 6 mls/hr 07/24/19 18:00 07/24/19 18 :03 Nitroglycerin 25 Mg/D5w 250 Ml IV 10 mcg/min TITRATE GABRIELA 6 mls/hr Administration Protocol 10 MCG/MIN Heparin Sodium/Dextrose 25,000 units in 500 mls @ 18 mls/hr 07/24/19 18:30 Heparin 25,000 Units In D5w 500 Ml IV ASDIRECTED GABRIELA 900 UNITS/HR Discontinued Medications Generic Name Dose Route Start Last Admin Trade Name Freq PRN Reason Stop Dose Admin Diphenhydramine HCl 25 mg 07/24/19 15:47 07/24/19 15:56 Benadryl IVPUSH 07/24/19 15:48 25 mg ONETIME ONE Administration Lorazepam 1 mg 07/24/19 15:40 07/24/19 15:52 Ativan IVPUSH 07/24/19 15:41 1 mg ONETIME ONE Administration Metoclopramide HCl 7.5 mg 07/24/19 15:41 07/24/19 15:53 Reglan IVPUSH 07/24/19 15:42 7.5 mg ONETIME ONE Administration - Radiology Interpretation Free Text/Narrative:: 48-year-old male presents to the ED per [facility] complaining of central chest pressure heaviness probably since midmorning today. He is very vague about when it started he states is intensified as the day is gone on. He indicates that he is been drinking alcohol for the last 2 to 3 days and has not been taking any of his cardiac medications or Plavix and/or aspirin. He has a history of a large anteroseptal myocardial infarction. The ECG shows sinus tachycardia at 132/min without any signs of ischemic change. Still smoking cigarettes daily as well. Usually 5-10. He has had morphine 4 mg IV and Zofran 4 mg IV administered by paramedics without relief of his discomfort. He is on Ativan 0.5 mg 3 times daily. He appears extremely anxious and agitated at this time. Plan cardiac work-up will be commenced. Since there is no ischemia on his ECG I will not place him on a nitroglycerin drip. Paramedics did give him 4 baby aspirin chewed. IV will be D5 normal saline at 500 mils per hour as he is been drinking alcohol fairly heavily for the last 2 to 3 days. Is unclear when he last ate. I am going to give him Ativan 1 mg IV with Reglan 7.5 g IV and Benadryl 25 mg IV to relieve some of his anxiety state. Cardiac work-up will be commenced. - Re-Assessments/Exams Free Text/Narrative Re-Assessment/Exam: 07/24/19 16:49 Hematology is back revealing a normal white count at 4.95. The auto differential is 58% neutrophils. Hemoglobin is 15.7 with hematocrit of 46.3. MCV is slightly elevated at 93.7. Platelet count 217,000. Chemistry is pending. Patient has been able to relax and sleep since receiving IV Ativan and Benadryl. Rate is down to 101 and sinus tachycardia. BP is 115/99. Sats are 93% on room air 07/24/19 17:05 test x-ray done portably reveals hyperinflated lung tomas. Borderline cardiomegaly. There is a defibrillator pacemaker in the left upper quadrant of the chest. 07/24/19 17:41 PTis 10.8 with an INR of 0.99. PTT is 27. Sodium 140 with potassium low normal at 3.5. Chloride is 101 with a bicarb of 29. Anion gap is 13.5. BUN is 5 with a creatinine of 1.0. GFR remains greater than 60. Glucose is 158. Lactic acid is 3.2 which is elevated calcium is 7.9 magnesium 1.9 bilirubin 0.3 with an AST of 37 ALT of 69 alk phosphatase 85. CK-MB fraction is mildly elevated at 3.9 troponin I is elevated at 0.235. C-reactive protein is less than 0.2. Total protein is 7.7. Blood alcohol is 0.29 g%. Patient therefore rules in for a myocardial infarction. I will repeat his ECG as the initial one revealed a sinus tachycardia 130 due to his anxiety. His heart rate is currently 103 sinus tachycardia. BNP is pending 07/24/19 17:50 repeat ECG at 1743 hrs. is essentially unchanged from the first 1. He has a sinus tachycardia 100/min. Occasional PVCs. Biatrial enlargement evident. Left ventricular appear to be with strain pattern evident. Q waves V1 to V3 and near Q wave V4 suggesting old anteroseptal myocardial infarction. T wave flattening in leads I and aVL which is nonspecific. 07/24/19 18:25 BNP is returned at 621. Lipase is elevated at 1421 indicating mild pancreatitis as well. Ketones came back at 0.10. Discussed case with on- call keyboard action assembler at [facility] where he receives care in [place]. Plan he will be started nitroglycerin drip at 10 mcg/min blood pressure limiting. Oxygen at 2 L/min has been started because his sats dipped down to 91% when he is falling asleep. He still complains that his chest pain is 8 out of 10 which I do not believe. 07/24/19 18:44 patient will be transported to [facility] after I spoke with the [address] Duenas has accepted care. She is currently working as a hospitalist at that facility. Patient has received Ativan 1 mg IV and fentanyl 50 mcg IV for chest pain and anxiety relief. Departure - Departure Time of Disposition: 18:46 Disposition: DC/Tfer to [facility] 02 Reason for Transfer *Q: Primary PCI Indicated Condition: Fair Clinical Impression: Acute coronary syndrome with high troponin, Lactic acidosis, Chest discomfort Acute alcohol intoxication Qualifiers: Complication of substance-induced condition: uncomplicated Qualified Code(s): F10.920 - Alcohol use, unspecified with intoxication, uncomplicated Pancreatitis, alcoholic, acute Qualifiers: Acute pancreatitis complication: unspecified Qualified Code(s): K85.20 - Alcohol induced acute pancreatitis without necrosis or infection Alcohol intoxication Qualifiers: Complication of substance-induced condition: uncomplicated Qualified Code(s): F10.920 - Alcohol use, unspecified with intoxication, uncomplicated Chest pain Qualifiers: Chest pain type: unspecified Qualified Code(s): R07.9 - Chest pain, unspecified Instructions: Alcohol Use Disorder, Coronary Artery Disease, Male Referrals: Jesse Pedroza MD [Primary Care Provider] - Forms: ED Department Discharge Sepsis Event Note - Focused Exam Vital Signs: Vital Signs Temp Pulse Resp BP Pulse Ox 07/24/19 15:38 36.1 C 125 H 16 166/105 H 93 L Date Exam was Performed: 07/24/19 Time Exam was Performed: 18:23 - My Orders Last 24 Hours: My Active Orders 07/24/19 15:42 Chest 1V Frontal [CR] Stat 07/24/19 15:43 DRUG SCREEN, URINE [URCHEM] Stat URINALYSIS W/MICROSCOPIC [UA W/MICROSCOPIC] [URIN] Stat 07/24/19 15:45 Dextrose 5%-0.9% NaCl [Dextrose 5%-Normal Saline] 1,000 ml IV ASDIRECTED 07/24/19 17:42 EKG Documentation Completion [RC] ASDIRECTED EKG 12 Lead [EK] Stat 07/24/19 17:43 EKG Documentation Completion [RC] STAT 07/24/19 18:00 Nitroglycerin/D5W [Nitroglycerin 25 MG/D5W 250 ML] 25 mg in 250 ml IV TITRATE 07/24/19 18:21 Heparin Sodium 4,200 units IVPUSH .BOLUS ONE 07/24/19 18:30 Heparin Sodium/D5W [Heparin 25,000 Units in D5W 500 ML] 25,000 units in 500 ml IV ASDIRECTED - Assessment/Plan Last 24 Hours: My Active Orders 07/24/19 15:42 Chest 1V Frontal [CR] Stat 07/24/19 15:43 DRUG SCREEN, URINE [URCHEM] Stat URINALYSIS W/MICROSCOPIC [UA W/MICROSCOPIC] [URIN] Stat 07/24/19 15:45 Dextrose 5%-0.9% NaCl [Dextrose 5%-Normal Saline] 1,000 ml IV ASDIRECTED 07/24/19 17:42 EKG Documentation Completion [RC] ASDIRECTED EKG 12 Lead [EK] Stat 07/24/19 17:43 EKG Documentation Completion [RC] STAT 07/24/19 18:00 Nitroglycerin/D5W [Nitroglycerin 25 MG/D5W 250 ML] 25 mg in 250 ml IV TITRATE 07/24/19 18:21 Heparin Sodium 4,200 units IVPUSH .BOLUS ONE 07/24/19 18:30 Heparin Sodium/D5W [Heparin 25,000 Units in D5W 500 ML] 25,000 units in 500 ml IV ASDIRECTED ED HPI GENERAL MEDICAL PROBLEM - General Chief Complaint: Chest Pain Stated Complaint: [facility] Time Seen by Provider: 07/24/19 15:40 Source of Information: Reports: Patient, EMS History Limitations: Reports: No Limitations - History of Present Illness INITIAL COMMENTS - FREE TEXT/NARRATIVE: 48-year-old male presents to the ED per [facility] complaining of central chest pain since midmorning around 10 or 11:00 today. He has a history of coronary artery disease with previous myocardial infarction. He still smokes 5 to 10 cigarettes/day. Denies any cough or sputum production. Denies any fever or chills. Indicates that he is been drinking alcohol fairly heavily for the last 2 to 3 days and has not taken any of his normal medications as he did not want them to interfere with the alcohol. Does not denies any nausea or vomiting. Paramedics administered aspirin 324 mg chewed by mouth and he was given morphine 4 mg IV with Zofran 4 mg IV for pain and nausea relief. his breath smellsstrongly of alcohol and his behavior id very dramatic. He presents in sinus tachycardia in the 130s. He is very anxious. Pain is felt primarily central sternum. Denies any radiation to his back neck jaw or upper extremities. Onset: Today, Gradual Onset Date: 07/24/19 (Vague as to when the chest pressure started.) Duration: Hour(s):, Constant, Other Location: Reports: Chest (Only the chest pressure discomfort gradually intensified over the last 5 to 6 hours.) Quality: Reports: Ache ( Chest discomfort. No radiation of pain is a deep ache or pressure.), Pressure Severity: Moderate Improves with: Reports: None (Comment 8 out of 10. No improvement with morphine 4 mg IV administered by the paramedics.) Worsens with: Reports: None Context: Denies: Activity, Exercise, Lifting, Sick Contact, Trauma, Other Associated Symptoms: Reports: Chest Pain, Loss of Appetite (He has not eaten much in the last 2 days), Malaise, Nausea/Vomiting, Shortness of Breath, Weakness (Mild nausea no vomiting). 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 This includes Plavix isosorbide lisinopril metoprolol lorazepam Paxil and trazodone) Middle Chest Pain Score (Numeric/FACES): 8 - Related Data Allergies Allergy/AdvReac Type Severity Reaction Status Date / Time No Known Allergies Allergy Verified 07/24/19 15:42 Home Meds: Home Meds Clopidogrel [Plavix] 75 mg PO DAILY 06/08/15 [History] Isosorbide Mononitrate [Imdur] 15 mg PO DAILY 06/08/15 [History] Lisinopril [Prinivil] 2.5 mg PO DAILY 06/08/15 [History] Zolpidem [Ambien] 5 - 10 mg PO BEDTIME 06/08/15 [History] traZODone 50 - 100 mg PO BEDTIME 06/08/15 [History] Aspirin [Halfprin] 81 mg PO DAILY 02/27/16 [History] LORazepam 0.5 mg PO TID PRN 11/06/16 [History] Metoprolol Succinate [Toprol XL] 50 mg PO BID 02/03/17 [History] PARoxetine [Paxil] 20 mg PO DAILY 02/03/17 [History] Azelastine HCl 2 spray PILAR BID 04/24/19 [History] Cyanocobalamin (Vitamin B-12) [B-12] 1,000 mcg PO DAILY 04/24/19 [History] Nitroglycerin 0.4 mg SL ASDIRECTED PRN 04/24/19 [History] Past Medical History HEENT History: Reports: Impaired Vision Other HEENT History: reading glasses Cardiovascular History: Reports: CAD, High Cholesterol, Hypertension, [place], Pacemaker, Stents Musculoskeletal History: Reports: Other (See Below) Other Musculoskeletal History: Right ankle fracture Neurological History: Reports: Head Trauma Psychiatric History: Reports: Addiction, Depression - Infectious Disease History Infectious Disease History: Reports: Chicken Pox - Past Surgical History Cardiovascular Surgical History: Reports: AICD, Coronary Artery Stent, Pacer Social & Family History - Family History Family Medical History: Noncontributory Cardiac: Reports: High Cholesterol, Hypertension, [place] OBGYN: Reports: - Caffeine Use Caffeine Use: Reports: Coffee, Soda - Living Situation & Occupation Living situation: Reports: Single Occupation: Disabled ED ROS GENERAL - Review of Systems Review Of Systems: See Below Constitutional: Reports: Malaise, Weakness, Fatigue, Decreased Appetite. Denies : Fever, Chills HEENT: Reports: No Symptoms Respiratory: Reports: Shortness of Breath. Denies: Wheezing, Pleuritic Chest Pain, Cough, Sputum, Hemoptysis Cardiovascular: Reports: Chest Pain, Blood Pressure Problem (Limbs he has central chest heaviness pressure discomfort.), Dyspnea on Exertion (Sometimes). Denies: Claudication, Edema, Lightheadedness, Orthopnea Endocrine: Reports: Fatigue GI/Abdominal: Reports: Decreased Appetite, Nausea. Denies: Hematemesis, Hematochezia, Vomiting : Reports: Frequency, Other ([place] x2) Musculoskeletal: Reports: Back Pain, Joint Pain (He sips neck at times) Skin: Reports: Bruising (This is easy as he is on Plavix and aspirin daily) Neurological: Reports: No Symptoms Psychiatric: Reports: Anxiety, Depression, Other (Chronic substance abuse with nicotine dependency and alcohol use) Hematologic/Lymphatic: Reports: No Symptoms Immunologic: Reports: No Symptoms ED EXAM, GENERAL - Physical Exam Exam: See Below Exam Limited By: No Limitations General Appearance: Alert, WD/WN, Anxious (Anxious.), Moderate Distress, Other ( Signs show temperature 36.1 heart rate is 125 and sinus tachycardia on the monitor. Respiratory to 16 O2 sats 93 to 95% on room air BP elevated 166 105.) Eye Exam: Bilateral Eye: Normal Inspection (No scleral icterus or blepharal pallor.), PERRL (No nystagmus) Nose: Normal Inspection Throat/Mouth: Other (Teeth are in need of). No: Normal Inspection, Normal Teeth ( dental work.), Normal Oropharynx ( Pharynx is slightly dry and mildly erythematous without exudate) Head: Atraumatic, Normocephalic, Other (No outward signs of any head or facial trauma) Neck: Normal Inspection, Full Range of Motion, Limited Range of Motion (It is on lateral rotation). No: Carotid Bruit, Lymphadenopathy (L), Lymphadenopathy ( R), Thyromegaly Respiratory/Chest: No Respiratory Distress, No Accessory Muscle Use, Decreased Breath Sounds, Other (Defibrillator pacemaker left upper anterior chest.). No: Normal Breath Sounds, Rales, Rhonchi, Wheezing (Steroid into the lower 50% lung tomas bilaterally compatible with COPD.) Cardiovascular: No Edema, No Gallop (Tachycardia 125 at rest), No JVD, No Murmur , No Rub, Tachycardia Peripheral Pulses: 2+: Posterior Tibial (L), Posterior Tibial (R), Dorsalis Pedis (L), Dorsalis Pedis (R), 3+: Carotid (L), Carotid (R) GI/Abdominal: Normal Bowel Sounds, Soft, Non-Tender, No Organomegaly, No Abnormal Bruit, No Mass, Pelvis Stable. No: Hepatomegaly, Splenomegaly Back Exam: Normal Inspection, Full Range of Motion. No: CVA Tenderness (L), CVA Tenderness (R) Extremities: Normal Inspection, Normal Range of Motion, Non-Tender, No Pedal Edema Neurological: Alert, Oriented, CN II-XII Intact, Normal Cognition, Normal Reflexes, No Motor/Sensory Deficits. No: Normal Gait (Tested) Psychiatric: Normal Mood, Anxious Skin Exam: Warm, Intact, Normal Color, No Rash EKG INTERPRETATION EKG Date: 07/24/19 Time: 15:30 Rhythm: Other (Is tachycardia 130/min) Rate (Beats/Min): 130 [place]: LAD-Left [place] Deviation P-Wave: Enlarged (Consider right atrial hypertrophy.) QRS: Other (There is left ventricular appear to be pattern with repolarization abnormality. There are Q waves V1, V2, V3 and near Q wave in V4 combined with an old anteroseptal myocardial infarction.) ST-T: Other QT: Normal EKG Interpretation Comments: Abnormal ECG with no signs of acute ischemic change. Course - Vital Signs Last Recorded V/S: Last Vital Signs Temp 36.1 C 07/24/19 15:38 Pulse 125 H 07/24/19 15:38 Resp 16 07/24/19 15:38 BP 166/105 H 07/24/19 15:38 Pulse Ox 93 L 07/24/19 15:38 - Orders/Labs/Meds Orders: Active Orders 24 hr Category Date Time Status EKG Documentation Completion [RC] ASDIRECTED Care 07/24/19 17:42 Active EKG Documentation Completion [RC] STAT Care 07/24/19 17:43 Active Chest 1V Frontal [CR] Stat Exams 07/24/19 15:42 Taken DRUG SCREEN, URINE [URCHEM] Stat Lab 07/24/19 15:43 Ordered URINALYSIS W/MICROSCOPIC [UA W/MICROSCOPIC] [URIN] Stat Lab 07/24/19 15:43 Ordered Dextrose 5%-0.9% NaCl [Dextrose 5%-Normal Saline] 1,000 Med 07/24/19 15:45 Active ml IV ASDIRECTED Heparin Sodium Med 07/24/19 18:21 Once 4,200 units IVPUSH .BOLUS ONE Heparin Sodium/D5W [Heparin 25,000 Units in D5W 500 ML] Med 07/24/19 18:30 Ordered 25,000 units in 500 ml IV ASDIRECTED Nitroglycerin/D5W [Nitroglycerin 25 MG/D5W 250 ML] Med 07/24/19 18:00 Active 25 mg in 250 ml IV TITRATE EKG 12 Lead [EK] Stat Ther 07/24/19 17:42 Ordered Medication Orders Heparin Sodium (Porcine) (Heparin Sodium) 4,200 units IVPUSH .BOLUS ONE Stop: 07/24/19 18:22 Dextrose/Sodium Chloride (Dextrose 5%-Normal Saline) 1,000 mls @ 500 mls/hr IV ASDIRECTED GABRIELA Last Admin: 07/24/19 15:51 Dose: 500 mls/hr Nitroglycerin/Dextrose (Nitroglycerin 25 Mg/D5w 250 Ml) 25 mg in 250 mls @ 6 mls/hr IV TITRATE GABRIELA; Protocol Last Admin: 07/24/19 18:03 Dose: 10 mcg/min, 6 mls/hr Heparin Sodium/Dextrose (Heparin 25,000 Units In D5w 500 Ml) 25,000 units in 500 mls @ 18 mls/hr IV ASDIRECTED GABRIELA Labs: Laboratory Tests 07/24/19 07/24/19 07/24/19 Range/Units 16:30 16:30 16:30 WBC 4.95 (4.23-9.07) K/mm3 RBC 4.94 (4.63-6.08) M/mm3 Hgb 15.7 (13.7-17.5) gm/dl Hct 46.3 (40.1-51.0) % MCV 93.7 H (79.0-92.2) fl MCH 31.8 (25.7-32.2) pg MCHC 33.9 (32.2-35.5) g/dl RDW Std Deviation 45.1 H (35.1-43.9) fL Plt Count 217 D (163-337) K/mm3 MPV 9.3 L (9.4-12.3) fl Neut % (Auto) 58.5 (34.0-67.9) % Lymph % (Auto) 24.4 (21.8-53.1) % [place] % (Auto) 14.9 H (5.3-12.2) % Eos % (Auto) 1.0 (0.8-7.0) Baso % (Auto) 1.0 (0.1-1.2) % Neut # (Auto) 2.89 (1.78-5.38) K/mm3 Lymph # (Auto) 1.21 L (1.32-3.57) K/mm3 [place] # (Auto) 0.74 (0.30-0.82) K/mm3 Eos # (Auto) 0.05 (0.04-0.54) K/mm3 Baso # (Auto) 0.05 (0.01-0.08) K/mm3 PT 10.8 (9.7-12.0) SECONDS INR 0.99 APTT 27 (22-31) SECONDS Sodium 140 (136-145) mEq/L Potassium 3.5 (3.5-5.1) mEq/L Chloride 101 (98-107) mEq/L Carbon Dioxide 29 (21-32) mEq/L Anion Gap 13.5 (5-15) BUN 5 L (7-18) mg/dL Creatinine 1.0 (0.7-1.3) mg/dL Est Cr Clr Drug Dosing TNP Estimated GFR (MDRD) > 60 (>60) mL/min BUN/Creatinine Ratio 5.0 L (14-18) Glucose 158 H (74-106) mg/dL Lactic Acid (0.4-2.0) mmol/L Calcium 7.9 L (8.5-10.1) mg/dL Magnesium 1.9 (1.8-2.4) mg/dl Total Bilirubin 0.3 (0.2-1.0) mg/dL AST 37 (15-37) U/L ALT 69 H (16-63) U/L Alkaline Phosphatase 85 (46-116) U/L CK-MB (CK-2) 3.9 H (0-3.6) ng/ml Troponin I 0.235 H* (0.00-0.056) ng/mL C-Reactive Protein <0.2 (<1.0) mg/dL NT-Pro-B Natriuret Pep (0-125) pg/mL Total Protein 7.7 (6.4-8.2) g/dl Albumin 3.9 (3.4-5.0) g/dl Globulin 3.8 gm/dL Albumin/Globulin Ratio 1.0 (1-2) Lipase (73-393) U/L Ethyl Alcohol 0.29 (0.00) gm% Ketones (0.0-0.3) mM 07/24/19 07/24/19 07/24/19 Range/Units 16:30 16:30 16:30 WBC (4.23-9.07) K/mm3 RBC (4.63-6.08) M/mm3 Hgb (13.7-17.5) gm/dl Hct (40.1-51.0) % MCV (79.0-92.2) fl MCH (25.7-32.2) pg MCHC (32.2-35.5) g/dl RDW Std Deviation (35.1-43.9) fL Plt Count (163-337) K/mm3 MPV (9.4-12.3) fl Neut % (Auto) (34.0-67.9) % Lymph % (Auto) (21.8-53.1) % [place] % (Auto) (5.3-12.2) % Eos % (Auto) (0.8-7.0) Baso % (Auto) (0.1-1.2) % Neut # (Auto) (1.78-5.38) K/mm3 Lymph # (Auto) (1.32-3.57) K/mm3 [place] # (Auto) (0.30-0.82) K/mm3 Eos # (Auto) (0.04-0.54) K/mm3 Baso # (Auto) (0.01-0.08) K/mm3 PT (9.7-12.0) SECONDS INR APTT (22-31) SECONDS Sodium (136-145) mEq/L Potassium (3.5-5.1) mEq/L Chloride (98-107) mEq/L Carbon Dioxide (21-32) mEq/L Anion Gap (5-15) BUN (7-18) mg/dL Creatinine (0.7-1.3) mg/dL Est Cr Clr Drug Dosing Estimated GFR (MDRD) (>60) mL/min BUN/Creatinine Ratio (14-18) Glucose (74-106) mg/dL Lactic Acid (0.4-2.0) mmol/L Calcium (8.5-10.1) mg/dL Magnesium (1.8-2.4) mg/dl Total Bilirubin (0.2-1.0) mg/dL AST (15-37) U/L ALT (16-63) U/L Alkaline Phosphatase (46-116) U/L CK-MB (CK-2) (0-3.6) ng/ml Troponin I (0.00-0.056) ng/mL C-Reactive Protein (<1.0) mg/dL NT-Pro-B Natriuret Pep 621 H (0-125) pg/mL Total Protein (6.4-8.2) g/dl Albumin (3.4-5.0) g/dl Globulin gm/dL Albumin/Globulin Ratio (1-2) Lipase 1421 H (73-393) U/L Ethyl Alcohol (0.00) gm% Ketones 0.10 (0.0-0.3) mM 05/17/20 Range/Units 16:47 WBC (4.23-9.07) K/mm3 RBC (4.63-6.08) M/mm3 Hgb (13.7-17.5) gm/dl Hct (40.1-51.0) % MCV (79.0-92.2) fl MCH (25.7-32.2) pg MCHC (32.2-35.5) g/dl RDW Std Deviation (35.1-43.9) fL Plt Count (163-337) K/mm3 MPV (9.4-12.3) fl Neut % (Auto) (34.0-67.9) % Lymph % (Auto) (21.8-53.1) % [place] % (Auto) (5.3-12.2) % Eos % (Auto) (0.8-7.0) Baso % (Auto) (0.1-1.2) % Neut # (Auto) (1.78-5.38) K/mm3 Lymph # (Auto) (1.32-3.57) K/mm3 [place] # (Auto) (0.30-0.82) K/mm3 [place] # (Auto) (0.04-0.54) K/mm3 Baso # (Auto) (0.01-0.08) K/mm3 PT (9.7-12.0) SECONDS INR APTT (22-31) SECONDS Sodium (136-145) mEq/L Potassium (3.5-5.1) mEq/L Chloride (98-107) mEq/L Carbon Dioxide (21-32) mEq/L Anion Gap (5-15) BUN (7-18) mg/dL Creatinine (0.7-1.3) mg/dL Est Cr Clr Drug Dosing Estimated GFR (MDRD) (>60) mL/min BUN/Creatinine Ratio (14-18) Glucose (74-106) mg/dL Lactic Acid 3.2 H* (0.4-2.0) mmol/L Calcium (8.5-10.1) mg/dL Magnesium (1.8-2.4) mg/dl Total Bilirubin (0.2-1.0) mg/dL AST (15-37) U/L ALT (16-63) U/L Alkaline Phosphatase (46-116) U/L CK-MB (CK-2) (0-3.6) ng/ml Troponin I (0.00-0.056) ng/mL C-Reactive Protein (<1.0) mg/dL NT-Pro-B Natriuret Pep (0-125) pg/mL Total Protein (6.4-8.2) g/dl Albumin (3.4-5.0) g/dl Globulin gm/dL Albumin/Globulin Ratio (1-2) Lipase (73-393) U/L Ethyl Alcohol (0.00) gm% Ketones (0.0-0.3) mM Meds: Medications Generic Name Dose Route Start Last Admin Trade Name Freq PRN Reason Stop Dose Admin Heparin Sodium (Porcine) 4,200 units 07/24/19 18:21 Heparin Sodium IVPUSH 07/24/19 18:22 .BOLUS ONE Dextrose/Sodium Chloride 1,000 mls @ 500 mls/hr 07/24/19 15:45 07/24/19 15:51 Dextrose 5%-Normal Saline IV 500 mls/hr ASDIRECTED GABRIELA Administration Nitroglycerin/Dextrose 25 mg in 250 mls @ 6 mls/hr 07/24/19 18:00 07/24/19 18 :03 Nitroglycerin 25 Mg/D5w 250 Ml IV 10 mcg/min TITRATE GABRIELA 6 mls/hr Administration Protocol 10 MCG/MIN Heparin Sodium/Dextrose 25,000 units in 500 mls @ 18 mls/hr 07/24/19 18:30 Heparin 25,000 Units In D5w 500 Ml IV ASDIRECTED GABRIELA 900 UNITS/HR Discontinued Medications Generic Name Dose Route Start Last Admin Trade Name Freq PRN Reason Stop Dose Admin Diphenhydramine HCl 25 mg 07/24/19 15:47 07/24/19 15:56 Benadryl IVPUSH 07/24/19 15:48 25 mg ONETIME ONE Administration Lorazepam 1 mg 07/24/19 15:40 07/24/19 15:52 Ativan IVPUSH 07/24/19 15:41 1 mg ONETIME ONE Administration Metoclopramide HCl 7.5 mg 07/24/19 15:41 05/17/20 15:53 Reglan IVPUSH 07/24/19 15:42 7.5 mg ONETIME ONE Administration - Radiology Interpretation Free Text/Narrative:: 48-year-old male presents to the ED per [facility] complaining of central chest pressure heaviness probably since midmorning today. He is very vague about when it started he states is intensified as the day is gone on. He indicates that he is been drinking alcohol for the last 2 to 3 days and has not been taking any of his cardiac medications or Plavix and/or aspirin. He has a history of a large anteroseptal myocardial infarction. The ECG shows sinus tachycardia at 132/min without any signs of ischemic change. Still smoking cigarettes daily as well. Usually 5-10. He has had morphine 4 mg IV and Zofran 4 mg IV administered by paramedics without relief of his discomfort. He is on Ativan 0.5 mg 3 times daily. He appears extremely anxious and agitated at this time. Plan cardiac work-up will be commenced. Since there is no ischemia on his ECG I will not place him on a nitroglycerin drip. Paramedics did give him 4 baby aspirin chewed. IV will be D5 normal saline at 500 mils per hour as he is been drinking alcohol fairly heavily for the last 2 to 3 days. Is unclear when he last ate. I am going to give him Ativan 1 mg IV with Reglan 7.5 g IV and Benadryl 25 mg IV to relieve some of his anxiety state. Cardiac work-up will be commenced. - Re-Assessments/Exams Free Text/Narrative Re-Assessment/Exam: 07/24/19 16:49 Hematology is back revealing a normal white count at 4.95. The auto differential is 58% neutrophils. Hemoglobin is 15.7 with hematocrit of 46.3. MCV is slightly elevated at 93.7. Platelet count 217,000. Chemistry is pending. Patient has been able to relax and sleep since receiving IV Ativan and Benadryl. Rate is down to 101 and sinus tachycardia. BP is 115/99. Sats are 93% on room air 07/24/19 17:05 test x-ray done portably reveals hyperinflated lung tomas. Borderline cardiomegaly. There is a defibrillator pacemaker in the left upper quadrant of the chest. 07/24/19 17:41 PTis 10.8 with an INR of 0.99. PTT is 27. Sodium 140 with potassium low normal at 3.5. Chloride is 101 with a bicarb of 29. Anion gap is 13.5. BUN is 5 with a creatinine of 1.0. GFR remains greater than 60. Glucose is 158. Lactic acid is 3.2 which is elevated calcium is 7.9 magnesium 1.9 bilirubin 0.3 with an AST of 37 ALT of 69 alk phosphatase 85. CK-MB fraction is mildly elevated at 3.9 troponin I is elevated at 0.235. C-reactive protein is less than 0.2. Total protein is 7.7. Blood alcohol is 0.29 g%. Patient therefore rules in for a myocardial infarction. I will repeat his ECG as the initial one revealed a sinus tachycardia 130 due to his anxiety. His heart rate is currently 103 sinus tachycardia. BNP is pending 07/24/19 17:50 repeat ECG at 1743 hrs. is essentially unchanged from the first 1. He has a sinus tachycardia 100/min. Occasional PVCs. Biatrial enlargement evident. Left ventricular appear to be with strain pattern evident. Q waves V1 to V3 and near Q wave V4 suggesting old anteroseptal myocardial infarction. T wave flattening in leads I and aVL which is nonspecific. 07/24/19 18:25 BNP is returned at 621. Lipase is elevated at 1421 indicating mild pancreatitis as well. Ketones came back at 0.10. Discussed case with on- call keyboard action assembler at [facility] where he receives care in [place]. Plan he will be started nitroglycerin drip at 10 mcg/min blood pressure limiting. Oxygen at 2 L/min has been started because his sats dipped down to 91% when he is falling asleep. He still complains that his chest pain is 8 out of 10 which I do not believe. 07/24/19 18:44 patient will be transported to [facility] after I spoke with the [address] Duenas has accepted care. She is currently working as a hospitalist at that facility. Patient has received Ativan 1 mg IV and fentanyl 50 mcg IV for chest pain and anxiety relief. Departure - Departure Time of Disposition: 18:46 Disposition: DC/Tfer to Acute Hospital 02 Reason for Transfer *Q: Primary PCI Indicated Condition: Fair Clinical Impression: Acute coronary syndrome with high troponin, Lactic acidosis, Chest discomfort Acute alcohol intoxication Qualifiers: Complication of substance-induced condition: uncomplicated Qualified Code(s): F10.920 - Alcohol use, unspecified with intoxication, uncomplicated Pancreatitis, alcoholic, acute Qualifiers: Acute pancreatitis complication: unspecified Qualified Code(s): K85.20 - Alcohol induced acute pancreatitis without necrosis or infection Alcohol intoxication Qualifiers: Complication of substance-induced condition: uncomplicated Qualified Code(s): F10.920 - Alcohol use, unspecified with intoxication, uncomplicated Chest pain Qualifiers: Chest pain type: unspecified Qualified Code(s): R07.9 - Chest pain, unspecified Instructions: Alcohol Use Disorder, Coronary Artery Disease, Male Referrals: Jesse Pedroza MD [Primary Care Provider] - Forms: ED Department Discharge Sepsis Event Note - Focused Exam Vital Signs: Vital Signs Temp Pulse Resp BP Pulse Ox 07/24/19 15:38 36.1 C 125 H 16 166/105 H 93 L Date Exam was Performed: 07/24/19 Time Exam was Performed: 18:23 - My Orders Last 24 Hours: My Active Orders 07/24/19 15:42 Chest 1V Frontal [CR] Stat 07/24/19 15:43 DRUG SCREEN, URINE [URCHEM] Stat URINALYSIS W/MICROSCOPIC [UA W/MICROSCOPIC] [URIN] Stat 07/24/19 15:45 Dextrose 5%-0.9% NaCl [Dextrose 5%-Normal Saline] 1,000 ml IV ASDIRECTED 07/24/19 17:42 EKG Documentation Completion [RC] ASDIRECTED EKG 12 Lead [EK] Stat 07/24/19 17:43 EKG Documentation Completion [RC] STAT 07/24/19 18:00 Nitroglycerin/D5W [Nitroglycerin 25 MG/D5W 250 ML] 25 mg in 250 ml IV TITRATE 07/24/19 18:21 Heparin Sodium 4,200 units IVPUSH .BOLUS ONE 07/24/19 18:30 Heparin Sodium/D5W [Heparin 25,000 Units in D5W 500 ML] 25,000 units in 500 ml IV ASDIRECTED - Assessment/Plan Last 24 Hours: My Active Orders 07/24/19 15:42 Chest 1V Frontal [CR] Stat 07/24/19 15:43 DRUG SCREEN, URINE [URCHEM] Stat URINALYSIS W/MICROSCOPIC [UA W/MICROSCOPIC] [URIN] Stat 07/24/19 15:45 Dextrose 5%-0.9% NaCl [Dextrose 5%-Normal Saline] 1,000 ml IV ASDIRECTED 07/24/19 17:42 EKG Documentation Completion [RC] ASDIRECTED EKG 12 Lead [EK] Stat 07/24/19 17:43 EKG Documentation Completion [RC] STAT 07/24/19 18:00 Nitroglycerin/D5W [Nitroglycerin 25 MG/D5W 250 ML] 25 mg in 250 ml IV TITRATE 07/24/19 18:21 Heparin Sodium 4,200 units IVPUSH .BOLUS ONE 07/24/19 18:30 Heparin Sodium/D5W [Heparin 25,000 Units in D5W 500 ML] 25,000 units in 500 ml IV ASDIRECTED Patient transferred to [facility] in [place] due to elevated troponin with complaints of central chest pain. It is complicated by the fact that he is acutely intoxicated by alcohol with a blood alcohol of 0.29 g%. He also has a low-grade pancreatitis with lipase greater than 1400. He has a strong of coronary artery disease with myocardial infarction in the past. I spoke through the 1 call nurse at [facility] in [place] and Dr. Duenas has accepted care at this time. Sepsis Event Note - Focused Exam Vital Signs: Vital Signs Temp Pulse Resp BP Pulse Ox 07/24/19 15:38 36.1 C 125 H 16 166/105 H 93 L Date Exam was Performed: 07/24/19 Time Exam was Performed: 18:23 - My Orders Last 24 Hours: My Active Orders 07/24/19 15:42 Chest 1V Frontal [CR] Stat 07/24/19 15:43 DRUG SCREEN, URINE [URCHEM] Stat URINALYSIS W/MICROSCOPIC [UA W/MICROSCOPIC] [URIN] Stat 07/24/19 15:45 Dextrose 5%-0.9% NaCl [Dextrose 5%-Normal Saline] 1,000 ml IV ASDIRECTED 07/24/19 17:42 EKG Documentation Completion [RC] ASDIRECTED EKG 12 Lead [EK] Stat 07/24/19 17:43 EKG Documentation Completion [RC] STAT 07/24/19 18:00 Nitroglycerin/D5W [Nitroglycerin 25 MG/D5W 250 ML] 25 mg in 250 ml IV TITRATE 07/24/19 18:21 Heparin Sodium 4,200 units IVPUSH .BOLUS ONE 07/24/19 18:30 Heparin Sodium/D5W [Heparin 25,000 Units in D5W 500 ML] 25,000 units in 500 ml IV ASDIRECTED - Assessment/Plan Last 24 Hours: My Active Orders 07/24/19 15:42 Chest 1V Frontal [CR] Stat 07/24/19 15:43 DRUG SCREEN, URINE [URCHEM] Stat URINALYSIS W/MICROSCOPIC [UA W/MICROSCOPIC] [URIN] Stat 07/24/19 15:45 Dextrose 5%-0.9% NaCl [Dextrose 5%-Normal Saline] 1,000 ml IV ASDIRECTED 07/24/19 17:42 EKG Documentation Completion [RC] ASDIRECTED EKG 12 Lead [EK] Stat 07/24/19 17:43 EKG Documentation Completion [RC] STAT 07/24/19 18:00 Nitroglycerin/D5W [Nitroglycerin 25 MG/D5W 250 ML] 25 mg in 250 ml IV TITRATE 07/24/19 18:21 Heparin Sodium 4,200 units IVPUSH .BOLUS ONE 07/24/19 18:30 Heparin Sodium/D5W [Heparin 25,000 Units in D5W 500 ML] 25,000 units in 500 ml IV ASDIRECTED
[2019-07-24] MEDS ORDERED: Dextrose 5%-0.9% NaCl 1,000 ML IV SCH (15:45)
[2019-07-24] MEDS ORDERED: diphenhydrAMINE 50 MG/ML SDV IVPUSH ONE (15:47)
[2019-07-24] MEDS ORDERED: Nitroglycerin/D5W 25 MG/250 ML BOTTLE IV SCH (18:00)
[2019-07-24] MEDS ORDERED: Heparin Sodium 5,000 Units/ML Vial IVPUSH ONE (18:21)
[2019-07-24] MEDS ORDERED: Heparin Sodium/D5W 25,000 UNITS/500 ML BAG IV SCH (18:30)
[2019-07-24] MEDS ORDERED: fentaNYL 100 MCG/2 ML SDV IVPUSH PRN (18:43)
[2019-07-24 19:15] VITALS: BP 119/85; PULSE 120
--- NOTE | 2019-07-25 11:21 | CR ---
Chest: Portable view of the chest was obtained. Comparison: Prior chest x-ray of 07/03/18. Heart size and mediastinum are normal. Lungs are clear with no acute parenchymal change. AICD is noted. Bony structures are grossly intact. Impression: 1. Nothing acute is identified on portable chest x-ray. Diagnostic code #1 This report was dictated in MDT
== END 2019-07-24 19:10 ==
LOC: JD.ED 15:25
DX: I24.9 Acute ischemic heart disease, unspecified (principal); K85.20 Alcohol induced acute pancreatitis without necrosis or infection; E87.2 Acidosis; F10.920 Alcohol use, unspecified with intoxication, uncomplicated; R74.8 Abnormal levels of other serum enzymes; F17.210 Nicotine dependence, cigarettes, uncomplicated; E78.00 Pure hypercholesterolemia, unspecified; I10 Essential (primary) hypertension; F32.9 Major depressive disorder, single episode, unspecified; I25.2 Old myocardial infarction; Z95.5 Presence of coronary angioplasty implant and graft; Z79.02 Long term (current) use of antithrombotics/antiplatelets; Z79.82 Long term (current) use of aspirin; Z79.899 Other long term (current) drug therapy
CPT/HCPCS: 36415; 71045; 80053; 80306; 80307; 81001; 82009; 82553; 83605; 83690; 83735; 83880; 84484; 85025; 85610; 85730; 86140; 93005; 96365; 96368; 96375; 96376; 99285; J1200; J1644; J2060; J2765; J3010; J3490; J7042; 93010; 99284

== ENCOUNTER 2019-08-12 03:02 | Emergency (ER) | payer MEDICAID ==
--- NOTE | 2019-08-12 03:47 | EDM.PDOC ---
ED HPI GENERAL MEDICAL PROBLEM - General Chief Complaint: Cardiovascular Problem Stated Complaint: [facility] Time Seen by Provider: 08/12/19 03:04 Source of Information: Reports: Patient History Limitations: Reports: Intoxication (Poor historian) - History of Present Illness INITIAL COMMENTS - FREE TEXT/NARRATIVE: Mr. Salgado is a very pleasant 48-year-old man with a past medical history significant for coronary artery disease status post 3 or 4 MIs and cardiac dysrhythmias, status post an AICD placement in 2011 with a battery replacement about 2 months ago, and binge alcoholism, who is now brought to the ED by EMS after he felt like his AICD discharged about 5 times around 2:30 this morning. He states that he was on the couch, and that he did not appreciate any preceding palpitations. After the discharges, however, he developed the sensation of rapid palpitations. The patient is also complaining of chest pain, however, on examination, he complained of tenderness when I palpated his abdomen. I asked him if that was the pain that he met when he said that he had chest pain, and he said that it was. He then later indicated that his pain was in his chest, and when I asked him to clarify if his pain was in his abdomen or in his chest, he then said "Well maybe I'm just hungry - I forgot to eat tonight." The patient states that he has been drinking heavily for the past 1 to 2 days, and that he has not taken his medications for the past 2 days, explaining that he does not like to mix his medications with alcohol. He appears to be intoxicated. Here in the ED, the patient's initial BP is initially found to be mildly elevated at 143/118, with a tachycardia of 132 bpm and tachypnea of 32 rpm. He is afebrile, saturating 95% on room air. The patient denies recent fever, chills, sore throat, ear pain, nasal or sinus congestion, cough, dyspnea, chest pain, palpitations, nausea, vomiting, constipation, diarrhea, abdominal pain, urinary symptoms, recent weight gain or weight loss, recent bloody bowel movements or black bowel movements, recent joint aches, headaches, or rashes. The patient's PCP is Dr. Jesse Pedroza. The patient's Product Sales Representative is Dr. Helen Kent, at [facility]. Left Chest Pain Score (Numeric/FACES): 9 - Related Data Allergies Allergy/AdvReac Type Severity Reaction Status Date / Time No Known Allergies Allergy Verified 08/12/19 03:14 Home Meds: Home Meds Clopidogrel [Plavix] 75 mg PO DAILY 06/08/15 [History] Isosorbide Mononitrate [Imdur] 15 mg PO DAILY 06/08/15 [History] Lisinopril [Prinivil] 2.5 mg PO DAILY 06/08/15 [History] Zolpidem [Ambien] 5 - 10 mg PO BEDTIME 06/08/15 [History] traZODone 50 - 100 mg PO BEDTIME 06/08/15 [History] Aspirin [Halfprin] 81 mg PO DAILY 02/27/16 [History] LORazepam 0.5 mg PO TID PRN 11/06/16 [History] Metoprolol Succinate [Toprol XL] 50 mg PO BID 02/03/17 [History] PARoxetine [Paxil] 20 mg PO DAILY 02/03/17 [History] Azelastine HCl 2 spray PILAR BID 04/24/19 [History] Cyanocobalamin (Vitamin B-12) [B-12] 1,000 mcg PO DAILY 04/24/19 [History] Nitroglycerin 0.4 mg SL ASDIRECTED PRN 04/24/19 [History] Past Medical History HEENT History: Reports: Impaired Vision (wears reading glasses) Cardiovascular History: Reports: CAD, High Cholesterol, Hypertension, MD (x 3 or 4) Musculoskeletal History: Reports: Fracture (right ankle fracture) Psychiatric History: Reports: Addiction (alcohol), Depression - Infectious Disease History Infectious Disease History: Reports: Chicken Pox - Past Surgical History Cardiovascular Surgical History: Reports: AICD (2011, with battery change around Jun 2019), Coronary Artery Stent (x 4 or 5), Other (See Below) ( Coronary angiogram x 4) Social & Family History - Family History Family Medical History: Noncontributory Cardiac: Reports: High Cholesterol, Hypertension, MD OBGYN: Reports: - Tobacco Use Smoking Status *Q: Current Every Day Smoker Years of Tobacco use: 32 Packs/Tins Daily: 0.3 Packs/Tins Daily Comment: Down from 1.5 ppd - Caffeine Use Caffeine Use: Reports: Coffee, Soda - Alcohol Use Alcohol Use History: Yes Alcohol Use Frequency: Binges - Recreational Drug Use Recreational Drug Use: Yes Drug Use in Last 12 Months: Yes Recreational Drug Type: Reports: Marijuana/Hashish (smokes on occasion, most recently late July 2019) - Living Situation & Occupation Living situation: Reports: Single, Alone Occupation: Unemployed ED ROS GENERAL - Review of Systems Review Of Systems: Comprehensive ROS is negative, except as noted in HPI. ED EXAM, GENERAL - Physical Exam Exam: See Below Exam Limited By: Intoxication General Appearance: Alert, No Apparent Distress, Thin Eye Exam: Bilateral Eye: EOMI, Normal Inspection Ears: Normal External Exam, Hearing Grossly Normal Nose: Normal Inspection Throat/Mouth: Normal Inspection, Normal Lips, Normal Voice, No Airway Compromise Head: Atraumatic, Normocephalic Neck: Normal Inspection, Full Range of Motion Respiratory/Chest: No Respiratory Distress, Lungs Clear, Normal Breath Sounds, No Accessory Muscle Use Cardiovascular: Normal Peripheral Pulses, No Edema, No Gallop, No JVD, No Murmur , No Rub, Tachycardia (regular) Peripheral Pulses: 3+: Radial (L), Radial (R) GI/Abdominal: Normal Bowel Sounds, Soft, Non-Tender, No Organomegaly, No Distention, No Abnormal Bruit, No Mass (Male) Exam: Deferred Rectal (Males) Exam: Deferred Back Exam: Normal Inspection, Full Range of Motion, NT Extremities: Normal Inspection, Normal Range of Motion, No Pedal Edema, Normal Capillary Refill Neurological: Alert, No Motor/Sensory Deficits, Other (Mildly slurred speech, consistent with alcohol intoxication) Skin Exam: Warm, Dry, Intact, Normal Color, No Rash EKG INTERPRETATION EKG Date: 08/12/19 Time: 03:04 Rhythm: Other (Sinus tachycardia) Rate (Beats/Min): 133 Cameron: Normal P-Wave: Enlarged (Biatrial enlargement) QRS: Normal ST-T: Other (J-point elevation in the anterior leads and slight ST depression in the lateral leads, likely due to repolarization abnormalities, but no T wave inversions to suggest ischemia) QT: Prolonged (QTc 503 ms) Comparison: No Change (07/24/2019) Course - Vital Signs Last Recorded V/S: Last Vital Signs Temp 36.5 C 08/12/19 03:14 Pulse 99 08/12/19 04:58 Resp 32 H 08/12/19 03:14 BP 122/103 H 08/12/19 04:58 Pulse Ox 95 08/12/19 03:14 - Orders/Labs/Meds Orders: Active Orders 24 hr Category Date Time Status EKG Documentation Completion [RC] STAT Care 08/12/19 03:10 Active Labs: Laboratory Tests 08/12/19 08/12/19 08/12/19 Range/Units 03:13 03:13 03:13 WBC 5.56 (4.23-9.07) K/mm3 RBC 5.58 (4.63-6.08) M/mm3 Hgb 17.2 D (13.7-17.5) gm/dl Hct 51.1 H (40.1-51.0) % MCV 91.6 (79.0-92.2) fl MCH 30.8 (25.7-32.2) pg MCHC 33.7 (32.2-35.5) g/dl RDW Std Deviation 44.1 H (35.1-43.9) fL Plt Count 212 (163-337) K/mm3 MPV 9.8 (9.4-12.3) fl Neutrophils % (Manual) 24 L (40-60) % Band Neutrophils % 1 (0-10) % Lymphocytes % (Manual) 54 H (20-40) % Atypical Lymphs % 0 % Monocytes % (Manual) 17 H (2-10) % Eosinophils % (Manual) 1 (0.8-7.0) % Basophils % (Manual) 3 H (0.2-1.2) Platelet Estimate Adequate Plt Morphology Comment Normal RBC Morph Comment Normal PT 11.2 (9.7-12.0) SECONDS INR 1.03 APTT 26 (22-31) SECONDS D-Dimer, Quantitative 2.17 H (0.19-0.50) mg/L Sodium 143 (136-145) mEq/L Potassium 3.7 (3.5-5.1) mEq/L Chloride 103 (98-107) mEq/L Carbon Dioxide 27 (21-32) mEq/L Anion Gap 16.7 H (5-15) BUN 5 L (7-18) mg/dL Creatinine 1.1 (0.7-1.3) mg/dL Est Cr Clr Drug Dosing 72.50 mL/min Estimated GFR (MDRD) > 60 (>60) mL/min BUN/Creatinine Ratio 4.5 L (14-18) Glucose 100 (74-106) mg/dL Calcium 9.0 (8.5-10.1) mg/dL Magnesium 2.0 (1.8-2.4) mg/dl Total Bilirubin 0.4 (0.2-1.0) mg/dL AST 56 H (15-37) U/L ALT 60 (16-63) U/L Alkaline Phosphatase 100 (46-116) U/L Troponin I 1.383 H* (0.00-0.056) ng/mL Total Protein 8.4 H (6.4-8.2) g/dl Albumin 4.3 (3.4-5.0) g/dl Globulin 4.1 gm/dL Albumin/Globulin Ratio 1.1 (1-2) Urine Opiates Screen (YTNBXM=405) Ur Buprenorphine Scrn (CUTOFF=10) Ur Oxycodone Screen (JUO8UB=923) Urine Methadone Screen (UGP0HW=761) Ur Propoxyphene Screen (ESDXKD=895) Ur Barbiturates Screen (RSKNCW=967) Ur Tricyclics Screen (VLHGYS=441) Ur Phencyclidine Scrn (CUTOFF=25) Ur Amphetamine Screen (EGEGJO=057) U Methamphetamines Scrn (KYLCVD=835) U Benzodiazepines Scrn (YNZQPF=600) U Cocaine Metab Screen (CGJATW=682) U Marijuana (THC) Screen (CUTOFF=50) Ethyl Alcohol 0.27 (0.00) gm% 06/05/20 Range/Units 07:05 WBC (4.23-9.07) K/mm3 RBC (4.63-6.08) M/mm3 Hgb (13.7-17.5) gm/dl Hct (40.1-51.0) % MCV (79.0-92.2) fl MCH (25.7-32.2) pg MCHC (32.2-35.5) g/dl RDW Std Deviation (35.1-43.9) fL Plt Count (163-337) K/mm3 MPV (9.4-12.3) fl Neutrophils % (Manual) (40-60) % Band Neutrophils % (0-10) % Lymphocytes % (Manual) (20-40) % Atypical Lymphs % % Monocytes % (Manual) (2-10) % Eosinophils % (Manual) (0.8-7.0) % Basophils % (Manual) (0.2-1.2) Platelet Estimate Plt Morphology Comment RBC Morph Comment PT (9.7-12.0) SECONDS INR APTT (22-31) SECONDS D-Dimer, Quantitative (0.19-0.50) mg/L Sodium (136-145) mEq/L Potassium (3.5-5.1) mEq/L Chloride (98-107) mEq/L Carbon Dioxide (21-32) mEq/L Anion Gap (5-15) BUN (7-18) mg/dL Creatinine (0.7-1.3) mg/dL Est Cr Clr Drug Dosing mL/min Estimated GFR (MDRD) (>60) mL/min BUN/Creatinine Ratio (14-18) Glucose (74-106) mg/dL Calcium (8.5-10.1) mg/dL Magnesium (1.8-2.4) mg/dl Total Bilirubin (0.2-1.0) mg/dL AST (15-37) U/L ALT (16-63) U/L Alkaline Phosphatase (46-116) U/L Troponin I (0.00-0.056) ng/mL Total Protein (6.4-8.2) g/dl Albumin (3.4-5.0) g/dl Globulin gm/dL Albumin/Globulin Ratio (1-2) Urine Opiates Screen Negative (IJIAUI=205) Ur Buprenorphine Scrn Negative (CUTOFF=10) Ur Oxycodone Screen Negative (KXW0DP=302) Urine Methadone Screen Negative (MQT5EO=957) Ur Propoxyphene Screen Negative (OPKHHP=660) Ur Barbiturates Screen Negative (IMOMRD=091) Ur Tricyclics Screen Negative (LMIQKF=666) Ur Phencyclidine Scrn Negative (CUTOFF=25) Ur Amphetamine Screen Negative (QGQKQB=248) U Methamphetamines Scrn Negative (MTUJNF=135) U Benzodiazepines Scrn Negative (MROZLT=190) U Cocaine Metab Screen Negative (FKFCYY=739) U Marijuana (THC) Screen Negative (CUTOFF=50) Ethyl Alcohol (0.00) gm% Meds: Medications Discontinued Medications Generic Name Dose Route Start Last Admin Trade Name Freq PRN Reason Stop Dose Admin Sodium Chloride 1,000 mls @ 150 mls/hr 08/12/19 05:00 08/12/19 05:03 Normal Saline IV 150 mls/hr ASDIRECTED GABRIELA Administration Sodium Chloride 100 mls @ 4 mls/sec 08/12/19 05:16 08/12/19 05:49 Normal Saline IV 08/12/19 05:17 4 mls/sec ONETIME ONE Administration Iopamidol 100 ml 08/12/19 05:16 08/12/19 05:49 Isovue-370 (76%) IVPUSH 08/12/19 05:17 100 ml ONETIME ONE Administration Metoprolol Tartrate 5 mg 08/12/19 03:48 08/12/19 03:55 Lopressor IVPUSH 08/12/19 03:49 5 mg ONETIME ONE Administration Metoprolol Tartrate 5 mg 08/12/19 04:53 08/12/19 04:58 Lopressor IVPUSH 08/12/19 04:54 5 mg ONETIME ONE Administration - Re-Assessments/Exams Free Text/Narrative Re-Assessment/Exam: 08/12/19 03:42 As above, the patient believes that his AICD discharged around 5 times around 2: 30 this morning. His AICD was interrogated, and the report from [employer] indicates that his AICD attempted antitachycardia pacing at 02:21 for suspected ventricular fibrillation, as well as 6 unsuccessful shocks, possibly for SVT. Further, the AICD is indicating that the patient has had 36 episodes of ventricular tachycardia 7 episodes of SVT. His ECG indicates a sinus tachycardia no ischemic changes, and a QTc longer at 503 ms. I have ordered a work-up that includes blood work, a chest x-ray, and a urine drug screen. In the meantime, the patient will be treated with IV Lopressor; a good choice, since he is ordinarily on metoprolol succinate, which he states he has not been taking. 08/12/19 04:50 Two-view chest radiograph reviewed. The cardiac silhouette is within normal limits. No pulmonary vascular congestion. No pleural effusions. No focal infiltrate. No pneumothorax. There is hyperinflation and bilateral diaphragmatic flattening, consistent with COPD. A left-sided 2 chamber AICD is noted. Formal read per the Radiologist pending. The patient's CBC is remarkable for a Hct mildly elevated at 51.1, with a Hgb normal at 17.2, and the remainder of his CBC being unremarkable. His CMP is remarkable for an anion gap mildly elevated at 16.7, but with a bicarbonate normal at 27, and the remainder of his CMP being unremarkable. His magnesium level is within normal limits at 2.0. His troponin is elevated at 1.383. His d-dimer is elevated at 2.17. His coags are within normal limits. His EtOH level is elevated at 0.27. The patient has not yet provided a urine sample for the urine drug screen. Following 5 mg of IV Lopressor, the patient's HR has decreased to right around 100 bpm. I have ordered an additional 5 mg of IV Lopressor. The patient's elevated troponin could be due to his AICD firing, however, that would not explain his elevated D-dimer. I have therefore ordered a CT angiogram of the chest to evaluate for a PE. The patient will be given IV fluid. 08/12/19 06:20 CT angiogram of the chest is read by [facility] as: 1. No pulmonary embolus or other acute thoracic disease identified. 2. Coronary artery calcifications. 3. Fatty liver. 4. Small nonobstructing right renal stone. I cannot determine at this time if the patient's elevated troponin is due to his AICD firing, or if it is due to a new cardiac event. I recommended transfer to [facility]. The patient agreed. 08/12/19 06:58 Case discussed with Yumiko at [facility] at 06:43. Case then discussed with Dr. Tapia, maintenance team member at [facility], at 06: 47. She recommended that the patient be placed into observation under the Hospitalist. Case then discussed with Dr. Robledo, Hospitalist at [facility], at 06: 54. He accepted the patient for placement into observation. The patient will be transported by ground ambulance. 08/12/19 07:00 I have pushed the patient's chest x-ray and CT angiogram images to [facility]. The patient did not provide a urine sample for the urine drug screen. Departure - Departure Time of Disposition: 06:59 Disposition: DC/Tfer to [facility] 02 Reason for Transfer *Q: Other (Cardiology) Condition: Good Clinical Impression: AICD discharge, Elevated troponin Alcohol intoxication Qualifiers: Complication of substance-induced condition: uncomplicated Qualified Code(s): F10.920 - Alcohol use, unspecified with intoxication, uncomplicated Referrals: Jesse Pedroza MD [Physician] - Helen Kent MD [Physician] - Forms: ED Department Discharge Sepsis Event Note - Evaluation Sepsis Screening Result: No Definite Risk - Focused Exam Date Exam was Performed: 08/12/19 Time Exam was Performed: 19:01 - My Orders Last 24 Hours: My Active Orders 08/12/19 03:10 EKG Documentation Completion [RC] STAT - Assessment/Plan Last 24 Hours: My Active Orders 08/12/19 03:10 EKG Documentation Completion [RC] STAT
[2019-08-12] MEDS ORDERED: Metoprolol Tartrate 5 MG/5 ML SDV IVPUSH ONE ×2 (03:48→04:53)
[2019-08-12 05:00] VITALS: BP 122/103; PULSE 99
[2019-08-12] MEDS ORDERED: Sodium Chloride 0.9% 1,000 ML IV SCH (05:00)
[2019-08-12] MEDS ORDERED: Sodium Chloride 0.9% 100 ML IV ONE (05:16)
[2019-08-12] MEDS ORDERED: Iopamidol 755 Mg/ML 100 ML Bottle IVPUSH ONE (05:16)
--- NOTE | 2019-08-12 09:04 | CT ---
CT chest Technique: Multiple axial sections through the chest were obtained. Intravenous contrast was utilized. Study performed as a pulmonary angiogram protocol. Comparison: Previous CT chest study of 06/25/17 and 09/22/15. Findings: Pulmonary arteries are well opacified. No filling defects are seen to indicate pulmonary embolism. Aorta shows no aneurysm. Small right hilar lymph node is seen measuring about 1.6 cm. This appears to be stable from prior CT exams and therefore is felt to be incidental. Coronary artery calcification is seen. Small nonobstructing stone noted within the right kidney measuring about 3 mm. Diffuse fatty infiltration seen within the liver. Diffuse emphysematous change is seen within both lungs. No acute parenchymal process is seen within either lung. Bone window settings were reviewed which shows mild degenerative change within the spine. Old healed bilateral rib fractures are noted. Impression: 1. No findings of pulmonary embolism. 2. Fatty infiltration within the liver. 3. Diffuse emphysematous change within both lungs. 4. Other findings as noted above which are nonacute. Diagnostic code #2 This report was dictated in MDT I agree with preliminary report from [facility], finalized on 08/12/19, 7:17 AM Central Daylight Time
--- NOTE | 2019-08-12 09:16 | CR ---
Chest: 2 views of the chest were obtained. Comparison: Prior chest x-ray of 04/24/19. Heart size and mediastinum are within normal limits. Lungs are hyperinflated compatible with emphysematous change. AICD is present. Bony structures are within normal limits for the patient's age. Impression: 1. Emphysematous change. 2. Nothing acute is identified on 2 view chest x-ray. Diagnostic code #2 This report was dictated in MDT
== END 2019-08-12 09:35 ==
LOC: JD.ED 03:02
DX: T82.199A Other mechanical complication of unspecified cardiac device, initial encounter (principal); R79.89 Other specified abnormal findings of blood chemistry; F10.229 Alcohol dependence with intoxication, unspecified; Y90.8 Blood alcohol level of 240 mg/100 ml or more; I10 Essential (primary) hypertension; F32.9 Major depressive disorder, single episode, unspecified; F17.210 Nicotine dependence, cigarettes, uncomplicated; I25.10 Atherosclerotic heart disease of native coronary artery without angina pectoris; I25.2 Old myocardial infarction; Z79.82 Long term (current) use of aspirin; Z79.02 Long term (current) use of antithrombotics/antiplatelets; Z79.899 Other long term (current) drug therapy
CPT/HCPCS: 36415; 71046; 71275; 80053; 80306; 80307; 83735; 84484; 85007; 85027; 85379; 85610; 85730; 93005; 96374; 96376; 99285; J3490; J7030; J7050; Q9967

== ENCOUNTER 2019-09-20 16:45 | Emergency (ER) | payer MEDICAID ==
[2019-09-20] MEDS ORDERED: Ondansetron 4 MG/2 ML SDV IVPUSH ONE (17:08)
[2019-09-20] MEDS ORDERED: LORazepam 2 MG/ML SDV IVPUSH ONE (17:08)
[2019-09-20] MEDS ORDERED: Nitroglycerin 0.4 MG Tab.SL SL ONE (17:08)
[2019-09-20] MEDS ORDERED: Aspirin 81 MG Tab.Chew PO ONE (17:08)
[2019-09-20] MEDS ORDERED: Sodium Chloride 0.9% 10 ML Syringe FLUSH PRN ×2 (17:08→18:20)
--- NOTE | 2019-09-20 17:28 | EDM.PDOC ---
<Jak Funez Rosalba - Last Filed: 09/20/19 19:14> ED HPI GENERAL MEDICAL PROBLEM - General Chief Complaint: Chest Pain Stated Complaint: [facility] Time Seen by Provider: 09/20/19 16:59 Source of Information: Reports: Patient, EMS, RN Notes Reviewed - History of Present Illness INITIAL COMMENTS - FREE TEXT/NARRATIVE: 48 yr old male has been brought in by [facility] after onset of chest pain, associated with shortness of breath about 1 hr prior to arrival. He states he was feeling fine prior to this happening. He has occasional chronic cough. No recent fever or chills. Hx of CAD with multiple VT's, multiple stents. Has an internal pacer, defib. unit. According to Duane he was at [facility] just 1 month ago, transferred form this ED. He is not sure what all was done but sounds like he had an angiogram, possibly stents about 1 month ago. - Related Data Allergies Allergy/AdvReac Type Severity Reaction Status Date / Time No Known Allergies Allergy Verified 09/20/19 16:56 Home Meds: Home Meds Aspirin [Aspirin EC] 81 mg PO DAILY 09/20/19 [History] Clopidogrel [Plavix] 75 mg PO DAILY 09/20/19 [History] Isosorbide Mononitrate [Imdur] 30 mg PO DAILY 09/20/19 [History] LORazepam [Ativan] 0.5 mg PO TID PRN 09/20/19 [History] Metoprolol Succinate [Toprol XL 50mg] 50 mg PO DAILY 09/20/19 [History] PARoxetine [Paxil] 20 mg PO DAILY 09/20/19 [History] atorvaSTATin [Lipitor] 20 mg PO DAILY 09/20/19 [History] traZODone HCl [Trazodone HCl] 100 mg PO BEDTIME 09/20/19 [History] Past Medical History - Past Health History Medical/Surgical History: Denies Medical/Surgical History Cardiovascular History: Reports: VT, Pacemaker, Stents Other Cardiovascular History: 5 VT's, 4 or 5 stents per PT Genitourinary History: Reports: Other (See Below) Other Genitourinary History: States hes has decreased urination, thinks he may have prostate issues. - Infectious Disease History Infectious Disease History: Reports: Chicken Pox Social & Family History - Family History Family Medical History: Noncontributory - Tobacco Use Smoking Status *Q: Current Some Day Smoker Years of Tobacco use: 20 Packs/Tins Daily: 0.1 ED ROS GENERAL - Review of Systems Review Of Systems: See Below Constitutional: Denies: Fever, Chills, Diaphoresis HEENT: Denies: Throat Pain Respiratory: Reports: Shortness of Breath, Cough, Sputum (occasional). Denies: Wheezing Cardiovascular: Reports: Chest Pain, Lightheadedness GI/Abdominal: Denies: Abdominal Pain, Nausea, Vomiting Musculoskeletal: Denies: Neck Pain, Shoulder Pain, Arm Pain, Back Pain Skin: Reports: No Symptoms Neurological: Reports: Dizziness. Denies: Numbness, Tingling, Weakness ED EXAM, GENERAL - Physical Exam Exam: See Below General Appearance: Alert, Mild Distress Eye Exam: Bilateral Eye: PERRL Head: Atraumatic. No: Facial Swelling Neck: Supple, Other (no JVD) Respiratory/Chest: Lungs Clear, Respiratory Distress (moderate tachypnea). No: Rhonchi, Wheezing Cardiovascular: Regular Rate, Rhythm GI/Abdominal: Soft, Non-Tender Back Exam: No: CVA Tenderness (L), CVA Tenderness (R) Extremities: Normal Inspection, Normal Range of Motion Neurological: Alert, Oriented, No Motor/Sensory Deficits Skin Exam: Warm, Dry, Normal Color EKG INTERPRETATION EKG Date: 09/20/19 Rhythm: NSR P-Wave: Present QRS: Other (small q waves inf. leads) ST-T: Elevated (st elev V3) Course - Re-Assessments/Exams Free Text/Narrative Re-Assessment/Exam: 09/20/19 19:20 trop came back very mildly elevated at 0.024. D Dimer also mildly elevated at 0.63. CT pul angiogram has been done. No PE. Have given nitro, ASA, 1 mg IV ativan, 0.5 mg IV dilaudid. Will repeat trop at this time. It is after change of shift, will transfer care to Dr Boss at this time. Departure - Departure Disposition: Home, Self-Care 01 Clinical Impression: Angina pectoris Referrals: Jesse Pedroza MD [Primary Care Provider] - Pavel Elam DO [Ordering Only Provider] - Forms: ED Department Discharge Additional Instructions: You were seen in the emergency room after developing chest pain and shortness of breath. Work-up in the ER included blood work, including 2 sets of cardiac enzymes, a portable chest x-ray, a CT angiogram of your chest, and an ECG. Your entire work-up was unremarkable. You have not suffered a heart attack. You do not have a blood clot in your lungs. Based on your history, physical exam, and ER tests, the cause of your chest pain and shortness of breath was most likely due to angina pectoris = pain from your heart getting an inadequate amount of blood. As discussed, it is imperative that you stop smoking. We recommend that you follow-up with your [employer], Dr. Pavel Elam, at the next available appointment. If any other problems, please do not hesitate to return to the ER. Sepsis Event Note (ED) - Evaluation Sepsis Screening Result: No Definite Risk <Pavel Boss - Last Filed: 09/20/19 21:13> ED HPI GENERAL MEDICAL PROBLEM Chest Pain Score (Numeric/FACES): 8 Course - Vital Signs Last Recorded V/S: Last Vital Signs Temp 36.1 C 09/20/19 19:17 Pulse 64 09/20/19 19:17 Resp 16 09/20/19 19:17 BP 139/100 H 09/20/19 19:17 Pulse Ox 97 09/20/19 19:17 - Orders/Labs/Meds Orders: Active Orders 24 hr Category Date Time Status EKG 12 Lead [EKG Documentation Completion] [RC] STAT Care 09/20/19 17:07 Active Peripheral IV Care [RC] . DIRECTED Care 09/20/19 17:08 Active Chest 1V Frontal [CR] Stat Exams 09/20/19 17:07 Taken Sodium Chloride 0.9% [Normal Saline] 45 ml Med 09/20/19 18:30 Active IV ASDIRECTED Sodium Chloride 0.9% [Saline Flush] Med 09/20/19 17:08 Active 10 ml FLUSH ASDIRECTED PRN Sodium Chloride 0.9% [Saline Flush] Med 09/20/19 18:20 Active 10 ml FLUSH ONETIME PRN Peripheral IV Insertion Adult [OM.PC] Stat Oth 09/20/19 17:07 Ordered Medication Orders Sodium Chloride (Normal Saline) 45 mls @ 40 mls/hr IV ASDIRECTED GABRIELA Last Admin: 09/20/19 18:35 Dose: 40 mls/hr Documented by: JESSICA Sodium Chloride (Saline Flush) 10 ml FLUSH ASDIRECTED PRN PRN Reason: Keep Vein Open Last Admin: 09/20/19 17:22 Dose: 10 ml Documented by: LUIS ALBERTO Sodium Chloride (Saline Flush) 10 ml FLUSH ONETIME PRN PRN Reason: Keep Vein Open Last Admin: 09/20/19 18:36 Dose: 10 ml Documented by: JESSICA Labs: Laboratory Tests 09/20/19 09/20/19 09/20/19 Range/Units 17:20 17:20 17:20 WBC 11.82 H (4.23-9.07) K/mm3 RBC 5.36 (4.63-6.08) M/mm3 Hgb 16.5 (13.7-17.5) gm/dl Hct 49.3 (40.1-51.0) % MCV 92.0 (79.0-92.2) fl MCH 30.8 (25.7-32.2) pg MCHC 33.5 (32.2-35.5) g/dl RDW Std Deviation 42.3 (35.1-43.9) fL Plt Count 218 (163-337) K/mm3 MPV 9.5 (9.4-12.3) fl Neut % (Auto) 79.4 H (34.0-67.9) % Lymph % (Auto) 11.0 L (21.8-53.1) % [place] % (Auto) 8.7 (5.3-12.2) % Eos % (Auto) 0.4 L (0.8-7.0) Baso % (Auto) 0.3 (0.1-1.2) % Neut # (Auto) 9.39 H (1.78-5.38) K/mm3 Lymph # (Auto) 1.30 L (1.32-3.57) K/mm3 [place] # (Auto) 1.03 H (0.30-0.82) K/mm3 Eos # (Auto) 0.05 (0.04-0.54) K/mm3 Baso # (Auto) 0.03 (0.01-0.08) K/mm3 Manual Slide Review Normal smear D-Dimer, Quantitative 0.63 H (0.19-0.50) mg/L Sodium 139 (136-145) mEq/L Potassium 4.5 (3.5-5.1) mEq/L Chloride 100 (98-107) mEq/L Carbon Dioxide 27 (21-32) mEq/L Anion Gap 16.5 H (5-15) BUN 12 (7-18) mg/dL Creatinine 1.1 (0.7-1.3) mg/dL Est Cr Clr Drug Dosing 73.19 mL/min Estimated GFR (MDRD) > 60 (>60) mL/min BUN/Creatinine Ratio 10.9 L (14-18) Glucose 88 (74-106) mg/dL Calcium 9.7 (8.5-10.1) mg/dL Total Bilirubin 1.1 H (0.2-1.0) mg/dL AST 19 (15-37) U/L ALT 27 (16-63) U/L Alkaline Phosphatase 96 (46-116) U/L Troponin I 0.024 (0.00-0.056) ng/mL Total Protein 8.1 (6.4-8.2) g/dl Albumin 4.4 (3.4-5.0) g/dl Globulin 3.7 gm/dL Albumin/Globulin Ratio 1.2 (1-2) // Range/Units 19:40 WBC (4.23-9.07) K/mm3 RBC (4.63-6.08) M/mm3 Hgb (13.7-17.5) gm/dl Hct (40.1-51.0) % MCV (79.0-92.2) fl MCH (25.7-32.2) pg MCHC (32.2-35.5) g/dl RDW Std Deviation (35.1-43.9) fL Plt Count (163-337) K/mm3 MPV (9.4-12.3) fl Neut % (Auto) (34.0-67.9) % Lymph % (Auto) (21.8-53.1) % [place] % (Auto) (5.3-12.2) % Eos % (Auto) (0.8-7.0) Baso % (Auto) (0.1-1.2) % Neut # (Auto) (1.78-5.38) K/mm3 Lymph # (Auto) (1.32-3.57) K/mm3 [place] # (Auto) (0.30-0.82) K/mm3 Eos # (Auto) (0.04-0.54) K/mm3 Baso # (Auto) (0.01-0.08) K/mm3 Manual Slide Review D-Dimer, Quantitative (0.19-0.50) mg/L Sodium (136-145) mEq/L Potassium (3.5-5.1) mEq/L Chloride (98-107) mEq/L Carbon Dioxide (21-32) mEq/L Anion Gap (5-15) BUN (7-18) mg/dL Creatinine (0.7-1.3) mg/dL Est Cr Clr Drug Dosing mL/min Estimated GFR (MDRD) (>60) mL/min BUN/Creatinine Ratio (14-18) Glucose (74-106) mg/dL Calcium (8.5-10.1) mg/dL Total Bilirubin (0.2-1.0) mg/dL AST (15-37) U/L ALT (16-63) U/L Alkaline Phosphatase (46-116) U/L Troponin I 0.025 (0.00-0.056) ng/mL Total Protein (6.4-8.2) g/dl Albumin (3.4-5.0) g/dl Globulin gm/dL Albumin/Globulin Ratio (1-2) Meds: Medications Generic Name Dose Route Start Last Admin Trade Name Freq PRN Reason Stop Dose Admin Sodium Chloride 45 mls @ 40 mls/hr 09/20/19 18:30 09/20/19 18:35 Normal Saline IV 40 mls/hr ASDIRECTED GABRIELA Administration Sodium Chloride 10 ml 09/20/19 17:08 09/20/19 17:22 Saline Flush FLUSH 10 ml ASDIRECTED PRN Administration Keep Vein Open Sodium Chloride 10 ml 09/20/19 18:20 09/20/19 18:36 Saline Flush FLUSH 10 ml ONETIME PRN Administration Keep Vein Open Discontinued Medications Generic Name Dose Route Start Last Admin Trade Name Freq PRN Reason Stop Dose Admin Aspirin 162 mg 09/20/19 17:08 09/20/19 17:17 Aspirin PO 09/20/19 17:09 162 mg ONETIME ONE Administration Hydromorphone HCl 0.5 mg 09/20/19 18:12 09/20/19 18:17 Dilaudid IVPUSH 09/20/19 18:13 0.5 mg ONETIME ONE Administration Iopamidol 100 ml 09/20/19 18:20 09/20/19 18:35 Isovue-370 (76%) IVPUSH 09/20/19 18:21 100 ml ONETIME ONE Administration Lorazepam 1 mg 09/20/19 17:08 09/20/19 17:18 Ativan IVPUSH 09/20/19 17:09 1 mg ONETIME ONE Administration Nitroglycerin 0.4 mg 09/20/19 17:08 09/20/19 17:21 Nitrostat SL 09/20/19 17:09 0.4 mg ONETIME ONE Administration Ondansetron HCl 4 mg 09/20/19 17:08 09/20/19 17:20 Zofran IVPUSH 09/20/19 17:09 4 mg ONETIME ONE Administration - Re-Assessments/Exams Free Text/Narrative Re-Assessment/Exam: 09/20/19 21:04 The patient's repeat troponin has remained stable at 0.025. I will therefore discharge the patient home with the recommendation that he follow-up with his [employer]. Departure - Departure Time of Disposition: 21:05 Condition: Good Sepsis Event Note (ED) - Focused Exam Vital Signs: Vital Signs Temp Pulse Resp BP BP Pulse Ox 09/20/19 19:17 36.1 C 64 16 139/100 H 97 09/20/19 17:21 139/89 09/20/19 16:52 36.8 C 73 20 149/110 H
[2019-09-20] MEDS ORDERED: HYDROmorphone 0.5 MG/0.5 ML Syringe IVPUSH ONE (18:12)
[2019-09-20] MEDS ORDERED: Iopamidol 755 Mg/ML 100 ML Bottle IVPUSH ONE (18:20)
[2019-09-20] MEDS ORDERED: Sodium Chloride 0.9% 45 ML IV SCH (18:30)
--- NOTE | 2019-09-20 19:07 | CT ---
CT chest Technique: Multiple axial sections through the chest were obtained. Intravenous contrast was utilized. Comparison: No prior chest CT, chest x-ray performed earlier on the same day is available (5:20 PM). Findings: Visualized upper abdominal structures show nothing acute. Heart is slightly enlarged. Pulmonary arteries are well opacified. No filling defects are seen to indicate pulmonary embolism. Aorta shows no aneurysm or dissection. Mediastinum and hilar region show no adenopathy. No pericardial thickening is seen. Lung window settings were reviewed. Scattered emphysematous change is noted within both lungs. No acute parenchymal process is seen. Bone window settings were reviewed. Several scattered old appearing healed rib fractures are noted. No acute osseous finding is appreciated. Impression: 1. Emphysematous change. 2. No findings of pulmonary embolism. 3. Nothing acute is appreciated on CT study of the chest. Diagnostic code #2 This report was dictated in MDT
[2019-09-20 19:18] VITALS: BP 139/100; PULSE 64
--- NOTE | 2019-09-21 07:07 | CR ---
Chest: Portable view of the chest was obtained. Comparison: No prior chest imaging is available, subsequent chest CT is available for correlation. Heart size at the upper limits of normal. AICD is present. Lungs are clear but hyperinflated. Bony structures are grossly intact. Impression: 1. Findings as described above. 2. Nothing acute is appreciated. Diagnostic code #2 This report was dictated in MDT
== END 2019-09-20 21:30 | disposition home or self-care (01) ==
LOC: EDBD 16:45 → MERGE 16:45 → JD.ED 16:45
DX: I20.9 Angina pectoris, unspecified (principal); I25.2 Old myocardial infarction; F17.210 Nicotine dependence, cigarettes, uncomplicated; Z79.82 Long term (current) use of aspirin; Z79.02 Long term (current) use of antithrombotics/antiplatelets; Z79.899 Other long term (current) drug therapy
CPT/HCPCS: 36415; 71045; 71275; 80053; 84484; 85025; 85379; 93005; 96361; 96374; 96375; 99285; A9270; J1170; J2060; J2405; J7050; Q9967; 93010; 99284

== ENCOUNTER 2020-04-22 23:33 | Emergency (ER) | payer MEDICAID ==
[2020-04-22] MEDS ORDERED: FLU VACC QS2020-21(6MOS UP)/PF 60 MCG/0.5 ML SYRINGE IM ONE (23:45)
--- NOTE | 2020-04-23 01:35 | EDM.PDOC ---
ED HPI GENERAL MEDICAL PROBLEM - General Chief Complaint: Chest Pain Stated Complaint: [facility] Time Seen by Provider: 04/23/20 01:13 Source of Information: Reports: Patient History Limitations: Reports: No Limitations - History of Present Illness INITIAL COMMENTS - FREE TEXT/NARRATIVE: Mr. Salgado is a very pleasant 49-year-old gentleman with a past medical history significant for coronary artery disease, status post 3 or 4 MIs in the past, status post 4 5 coronary stents, who is now brought to the ED by EMS after developing bilateral chest pain and dyspnea. Initially, he stated that it started yesterday, but when asked if he knew what day it is today (Thursday), he replied Thursday or . I asked him if he meant that the pain had begun Thursday or Thursday, and he replied that it has probably been going on for 2 or 3 days, but that he had been sleeping, and that he cannot believe it is Thursday. The patient has a history of binge alcoholism. He states that his last drink was 5 or 6 days ago, although, as above, his judgment of time is questionable. The patient is unable to describe the character of his pain, but indicates both of his pectoralis muscles, with no pain felt in between. He states that the pain is continuous, and that he has not identified any modifiers. He states that he has had similar pain many times in the past, that he attributes to prior MIs. The patient also reports that he has been feeling shaky, weak, and dizzy for the past 6 months. No recent nausea, vomiting, or diaphoresis. Here in the ED, the patient's initial BP is found to be slightly elevated at 137/107, otherwise, he is hemodynamically stable, afebrile, saturating 93% on room air. Other than his chronic shakiness, weakness, dizziness, prior to a few days ago, the patient denies having a recent fever, chills, sore throat, ear pain, nasal or sinus congestion, cough, dyspnea, chest pain, palpitations, nausea, vomiting, constipation, diarrhea, abdominal pain, urinary symptoms, recent weight gain or weight loss, recent bloody bowel movements or black bowel movements, recent joint aches, headaches, or rashes. The patient's PCP is Dr. Jesse Pedroza. His Engineering Group Manager is Dr. Rene Kent, at [facility]. The patient has not received an influenza vaccine this season, but agreed to get one here in the ED. Chest Pain Score (Numeric/FACES): 9 - Related Data Allergies Allergy/AdvReac Type Severity Reaction Status Date / Time No Known Allergies Allergy Verified 04/22/20 23:42 Home Meds: Home Meds Isosorbide Mononitrate [Imdur] 15 mg PO DAILY 06/08/15 [History] Zolpidem [Ambien] 10 mg PO BEDTIME PRN 06/08/15 [History] LORazepam 0.5 mg PO TID PRN 11/06/16 [History] Nitroglycerin 0.4 mg SL ASDIRECTED PRN 04/24/19 [History] Aspirin [Aspirin EC] 81 mg PO DAILY 09/20/19 [History] Clopidogrel [Plavix] 75 mg PO DAILY 09/20/19 [History] Metoprolol Succinate [Toprol XL 50mg] 50 mg PO DAILY 09/20/19 [History] traZODone HCl [Trazodone HCl] 100 mg PO BEDTIME 09/20/19 [History] Amiodarone [Cordarone] 200 mg PO DAILY 04/22/20 [History] Oxybutynin Chloride [Oxybutynin Chloride ER] 10 mg PO DAILY 04/22/20 [History] PARoxetine HCL [Paxil] 30 mg PO DAILY 04/22/20 [History] atorvaSTATin [Lipitor] 40 mg PO DAILY 04/22/20 [History] Past Medical History HEENT History: Reports: Impaired Vision (wears reading glasses) Cardiovascular History: Reports: CAD, High Cholesterol, Hypertension, [place] (x 3 or 4) Musculoskeletal History: Reports: Fracture (right ankle) Psychiatric History: Reports: Addiction (alcohol), Depression - Infectious Disease History Infectious Disease History: Reports: Chicken Pox - Past Surgical History Cardiovascular Surgical History: Reports: AICD (since 2011, with battery replacement Jun 2019), Coronary Artery Stent (x 4 or 5), Other (See Below) (Coronary angiogram x 4) Social & Family History - Tobacco Use Tobacco Use Status *Q: Current Every Day Tobacco User Years of Tobacco use: 32 Packs/Tins Daily: 0.2 Packs/Tins Daily Comment: Down from 1.5 ppd - Caffeine Use Caffeine Use: Reports: None - Alcohol Use Alcohol Use History: Yes Alcohol Use Frequency: Binges - Recreational Drug Use Recreational Drug Use: Yes Drug Use in Last 12 Months: Yes Recreational Drug Type: Reports: Marijuana/Hashish (smokes on occasion) - Living Situation & Occupation Living situation: Reports: Alone, Single Occupation: Unemployed ED ROS GENERAL - Review of Systems Review Of Systems: Comprehensive ROS is negative, except as noted in HPI. ED EXAM, GENERAL - Physical Exam Exam: See Below Exam Limited By: No Limitations General Appearance: Alert, WD/WN, No Apparent Distress Eye Exam: Bilateral Eye: EOMI, Normal Inspection Ears: Normal External Exam, Hearing Grossly Normal Nose: Normal Inspection Throat/Mouth: Normal Inspection, Normal Lips, Normal Voice, No Airway Compromise Head: Atraumatic, Normocephalic Neck: Normal Inspection, Full Range of Motion Respiratory/Chest: No Respiratory Distress, Lungs Clear, Normal Breath Sounds, No Accessory Muscle Use, Other (Reproducible tenderness to palpation of the bilateral pectoralis muscles, but nontender elsewhere on the anterior chest) Cardiovascular: Normal Peripheral Pulses, Regular Rate, Rhythm, No Edema, No Gallop, No JVD, No Murmur, No Rub Peripheral Pulses: 3+: Radial (L), Radial (R) GI/Abdominal: Normal Bowel Sounds, Soft, Non-Tender, No Organomegaly, No Distention, No Abnormal Bruit, No Mass Back Exam: Normal Inspection, Full Range of Motion, NT Extremities: Normal Inspection, Normal Range of Motion, No Pedal Edema, Normal Capillary Refill Neurological: Alert, Oriented, Normal Cognition, No Motor/Sensory Deficits Psychiatric: Normal Affect Skin Exam: Warm, Dry, Intact, Normal Color, No Rash #1 Interpretation EKG Date: 04/22/20 Time: 23:38 Rhythm: NSR Rate (Beats/Min): 84 [place]: Normal P-Wave: Enlarged (Biatrial) QRS: Normal ST-T: Normal QT: Prolonged (QTc 473 ms) Comparison: No Change (09/20/2019) Course - Vital Signs Last Recorded V/S: Last Vital Signs Temp 36.7 C 04/22/20 23:39 Pulse 71 04/23/20 02:54 Resp 16 04/23/20 02:54 BP 94/62 04/23/20 02:54 Pulse Ox 94 L 04/23/20 02:54 - Orders/Labs/Meds Orders: Active Orders 24 hr Category Date Time Status EKG Documentation Completion [RC] ASDIRECTED Care 04/22/20 23:46 Active Influenza Vaccine Charge [RC] .DISCHARGE Care 04/22/20 23:46 Active Ang Chest [CT] Stat Exams 04/23/20 02:24 Taken Chest 1V Frontal [CR] Stat Exams 04/23/20 01:15 Taken Sodium Chloride 0.9% [Normal Saline] 1,000 ml Med 04/23/20 02:30 Active IV ASDIRECTED Sodium Chloride 0.9% [Normal Saline] 100 ml Med 04/23/20 02:45 Active IV ASDIRECTED EKG 12 Lead [EK] Stat Ther 04/22/20 23:46 Ordered Medication Orders Sodium Chloride (Normal Saline) 1,000 mls @ 150 mls/hr IV ASDIRECTED GABRIELA Last Admin: 04/23/20 02:53 Dose: 150 mls/hr Documented by: MOE Sodium Chloride (Normal Saline) 100 mls @ 60 mls/hr IV ASDIRECTED GABRIELA Last Admin: 04/23/20 03:01 Dose: 60 mls/hr Documented by: MATEUSZ Labs: Laboratory Tests 04/22/20 04/22/20 04/22/20 Range/Units 23:40 23:40 23:40 WBC 5.61 (4.23-9.07) K/mm3 RBC 5.29 (4.63-6.08) M/mm3 Hgb 16.0 (13.7-17.5) gm/dl Hct 48.9 (40.1-51.0) % MCV 92.4 H (79.0-92.2) fl MCH 30.2 (25.7-32.2) pg MCHC 32.7 (32.2-35.5) g/dl RDW Std Deviation 43.3 (35.1-43.9) fL Plt Count 175 (163-337) K/mm3 MPV 10.2 (9.4-12.3) fl Neut % (Auto) 60.0 (34.0-67.9) % Lymph % (Auto) 27.1 (21.8-53.1) % [place] % (Auto) 11.1 (5.3-12.2) % Eos % (Auto) 1.6 (0.8-7.0) Baso % (Auto) 0.2 (0.1-1.2) % Neut # (Auto) 3.37 (1.78-5.38) K/mm3 Lymph # (Auto) 1.52 (1.32-3.57) K/mm3 [place]uming # (Auto) 0.62 (0.30-0.82) K/mm3 Eos # (Auto) 0.09 (0.04-0.54) K/mm3 Baso # (Auto) 0.01 (0.01-0.08) K/mm3 D-Dimer, Quantitative 1.06 H (0.19-0.50) mg/L Sodium 138 (136-145) mEq/L Potassium 3.4 L (3.5-5.1) mEq/L Chloride 98 (98-107) mEq/L Carbon Dioxide 30 (21-32) mEq/L Anion Gap 13.4 (5-15) BUN 14 (7-18) mg/dL Creatinine 1.2 (0.7-1.3) mg/dL Est Cr Clr Drug Dosing 68.09 mL/min Estimated GFR (MDRD) > 60 (>60) mL/min BUN/Creatinine Ratio 11.7 L (14-18) Glucose 96 (74-106) mg/dL Calcium 9.0 (8.5-10.1) mg/dL Total Bilirubin 0.8 (0.2-1.0) mg/dL AST 88 H (15-37) U/L ALT 93 H (16-63) U/L Alkaline Phosphatase 109 (46-116) U/L Troponin I < 0.017 (0.00-0.056) ng/mL Total Protein 8.0 (6.4-8.2) g/dl Albumin 3.9 (3.4-5.0) g/dl Globulin 4.1 gm/dL Albumin/Globulin Ratio 1.0 (1-2) Meds: Medications Generic Name Dose Route Start Last Admin Trade Name Freq PRN Reason Stop Dose Admin Sodium Chloride 1,000 mls @ 150 mls/hr 04/23/20 02:30 04/23/20 02:53 Normal Saline IV 150 mls/hr ASDIRECTED GABRIELA Administration Sodium Chloride 100 mls @ 60 mls/hr 04/23/20 02:45 04/23/20 03:01 Normal Saline IV 60 mls/hr ASDIRECTED GABRIELA Administration Discontinued Medications Generic Name Dose Route Start Last Admin Trade Name Chika PRN Reason Stop Dose Admin Influenza Virus Vaccine 60 mcg 04/22/20 23:45 Fluzone Quad Syringe IM 04/22/20 23:46 .ONCE ONE Iopamidol 100 ml 04/23/20 02:32 04/23/20 03:01 Isovue-370 (76%) IVPUSH 04/23/20 02:33 100 ml ONETIME ONE Administration Sodium Chloride 10 ml 04/23/20 02:32 04/23/20 03:01 Saline Flush FLUSH 04/23/20 02:33 10 ml ONETIME ONE Administration - Re-Assessments/Exams Free Text/Narrative Re-Assessment/Exam: 04/23/20 01:30 As above, the patient has had bilateral chest pain and dyspnea of an undetermined duration, since he initially said it began yesterday, but he thought that today was Thursday or , and when I informed him that it was early Thursday morning, he stated that it has been going on for the past 2 or 3 days. An ECG, obtained at triage, is unremarkable. His pain is reproducible with palpation of his bilateral pectoralis muscles. The patient's CBC is unremarkable. His CMP is remarkable for slight hypokalemia 3.4, and an AST/ALT slightly elevated at 88/93, respectively, with the remainder of his CMP being unremarkable. His troponin is undetectably low. Portable chest radiograph reviewed. The cardiac silhouette is at the upper limits of normal. No pulmonary vascular congestion. No pleural effusions seen on this AP view. No focal infiltrate. No pneumothorax. There is hyperinflation and bilateral diaphragmatic flattening, consistent with COPD. A 2-chamber left-sided AICD is noted. Formal read per the Radiologist pending. 04/23/20 01:43 I have added a D-dimer to blood work already in the lab. 04/23/20 02:24 The patient's D-dimer returned elevated at 1.06. I discussed this with the patient, and offered a CT angiogram of his chest to evaluate for PE. The patient agreed. The patient will be given IV fluid. 04/23/20 03:42 CT angiogram of the chest is read by [facility] as: 1. No evidence for acute pulmonary embolism. 2. Severe coronary artery calcifications. 3. No acute infiltrate or pleural effusion [sic] 04/23/20 03:44 Test results discussed with the patient. As above, kiley's work-up is entirely unremarkable. Because his chest pain is reproducible with palpation, it appears to be musculoskeletal in etiology. He may take [id number] Tylenol or ibuprofen. I will discharge him home. The patient will be given an influenza vaccine prior to discharge. Departure - Departure Time of Disposition: 03:45 Disposition: Home, Self-Care 01 Condition: Good Clinical Impression: Musculoskeletal chest pain - Discharge Information *PRESCRIPTION DRUG MONITORING PROGRAM REVIEWED*: Not Applicable *COPY OF PRESCRIPTION DRUG MONITORING REPORT IN PATIENT SOFIYA: Not Applicable Referrals: Jesse Pedroza MD [Primary Care Provider] - Helen Kent MD [Ordering Only Provider] - Forms: ED Department Discharge Additional Instructions: You were seen in the emergency room after developing pain to both sides of your chest, along with shortness of breath, 2 to 3 days ago. Work-up in the ER included several blood tests, a chest x-ray, a CT angiogram of your chest, and an ECG. Your entire work-up was unremarkable. You have not suffered a heart attack. You do not have a blood clot in your lungs. You do not have pneumonia or collapsed lung. Based on your history, physical exam, and ER tests, the cause of your pain appears to be musculoskeletal. We recommend that you take [id number] Tylenol or ibuprofen as needed for discomfort. If your symptoms persist, please follow-up with your PCP, Dr. Jesse Pedroza. If any other problems, please do not hesitate to return to the ER. You were given an influenza vaccine during your ER visit. Sepsis Event Note (ED) - Evaluation Sepsis Screening Result: No Definite Risk - Focused Exam Vital Signs: Vital Signs Temp Pulse Resp BP Pulse Ox 04/23/20 02:54 71 16 94/62 94 L 04/22/20 23:39 36.7 C 86 19 137/107 H 93 L - My Orders Last 24 Hours: My Active Orders 04/22/20 23:46 EKG Documentation Completion [RC] ASDIRECTED Influenza Vaccine Charge [RC] .DISCHARGE EKG 12 Lead [EK] Stat 04/23/20 01:15 Chest 1V Frontal [CR] Stat 04/23/20 02:24 Ang Chest [CT] Stat 04/23/20 02:30 Sodium Chloride 0.9% [Normal Saline] 1,000 ml IV ASDIRECTED 04/23/20 02:45 Sodium Chloride 0.9% [Normal Saline] 100 ml IV ASDIRECTED - Assessment/Plan Last 24 Hours: My Active Orders 04/22/20 23:46 EKG Documentation Completion [RC] ASDIRECTED Influenza Vaccine Charge [RC] .DISCHARGE EKG 12 Lead [EK] Stat 04/23/20 01:15 Chest 1V Frontal [CR] Stat 04/23/20 02:24 Ang Chest [CT] Stat 04/23/20 02:30 Sodium Chloride 0.9% [Normal Saline] 1,000 ml IV ASDIRECTED 04/23/20 02:45 Sodium Chloride 0.9% [Normal Saline] 100 ml IV ASDIRECTED
[2020-04-23] MEDS ORDERED: Sodium Chloride 0.9% 1,000 ML IV SCH (02:30)
[2020-04-23] MEDS ORDERED: Iopamidol 755 Mg/ML 100 ML Bottle IVPUSH ONE (02:32)
[2020-04-23] MEDS ORDERED: Sodium Chloride 0.9% 10 ML Syringe FLUSH ONE (02:32)
[2020-04-23] MEDS ORDERED: Sodium Chloride 0.9% 100 ML IV SCH (02:45)
[2020-04-23 02:54] VITALS: BP 94/62; PULSE 71
--- NOTE | 2020-04-23 13:11 | CR ---
Chest: AP portable view of the chest was obtained. Comparison: Prior chest x-ray of 08/12/19. Heart size and mediastinum are within normal limits for portable technique. Lungs are hyperinflated compatible with emphysematous change. Lungs show no acute parenchymal change. AICD is present. No gross bony abnormality is appreciated for the patient's age. Impression: 1. Emphysematous change. 2. Other findings as noted above. 3. Nothing acute is appreciated. Diagnostic code #2 MTDD
--- NOTE | 2020-04-23 13:12 | CT ---
CT chest Technique: Multiple axial sections through the chest were obtained. Intravenous contrast was utilized. Study has been performed as a pulmonary angiogram protocol. Comparison: Prior CT chest study of 09/20/19. Findings: Visualized upper abdominal structures show no discrete abnormality. Aorta shows no aneurysm within the thoracic region. Mediastinum shows no adenopathy. No axillary adenopathy is seen. No pericardial thickening is seen. Coronary artery shows irregularity compatible with atherosclerotic change. Pulmonary arteries are well opacified and show no filling defects of pulmonary embolism. No acute parenchymal change is seen within the lungs. Bone window settings were reviewed. Old bilateral rib fractures are noted which appear healed. Several mild compression deformities are seen within the spine which are old. Mild degenerative change is scattered within the spine. Impression: 1. Stable emphysematous change. Other findings are stable as noted above. 2. No findings of pulmonary embolism. Nothing acute is seen on CT study of the chest. Diagnostic code #2 I agree with preliminary report from [facility], finalized on 04/23/20, 4:13 AM ERLINDA ESCOBEDO
== END 2020-04-23 08:10 | disposition home or self-care (01) ==
LOC: JD.ED 23:33
DX: R07.89 Other chest pain (principal); I25.10 Atherosclerotic heart disease of native coronary artery without angina pectoris; E78.00 Pure hypercholesterolemia, unspecified; I10 Essential (primary) hypertension; I25.2 Old myocardial infarction; Z79.82 Long term (current) use of aspirin; Z79.02 Long term (current) use of antithrombotics/antiplatelets; Z79.899 Other long term (current) drug therapy; Z72.0 Tobacco use; Z95.5 Presence of coronary angioplasty implant and graft
CPT/HCPCS: 36415; 71045; 71045-26; 71275; 71275-26; 80053; 84484; 85025; 85379; 93005; 93010; 99284; 99285-25; J7030; Q9967

== ENCOUNTER 2021-11-08 15:18 | Emergency (ER) | payer MEDICAID ==
[2021-11-08 15:29] VITALS: PULSE 65
[2021-11-08] MEDS ORDERED: Albuterol/Ipratropium 3.0-0.5 MG/3 ML Neb Soln NEB ONE (16:00)
[2021-11-08] MEDS ORDERED: Aspirin 81 MG Tab.Chew PO ONE (17:40)
[2021-11-08] MEDS ORDERED: methylPREDNISolone Sodium Succinate 125 MG/2 ML SDV IVPUSH ONE (17:46)
[2021-11-08] MEDS ORDERED: Nitroglycerin 0.4 MG Tab.SL SL PRN (17:49)
[2021-11-08 17:59] VITALS: BP 123/88
[2021-11-08] MEDS ORDERED: Sodium Chloride 0.9% 1,000 ML IV SCH (18:00)
[2021-11-08] MEDS ORDERED: Albuterol 6.7 GM Inhaler INH ONE (18:56)
== END 2021-11-08 21:00 | disposition home or self-care (01) ==
LOC: JD.ED 15:18
DX: J45.909 Unspecified asthma, uncomplicated (principal); I25.10 Atherosclerotic heart disease of native coronary artery without angina pectoris; E78.00 Pure hypercholesterolemia, unspecified; I10 Essential (primary) hypertension; I25.2 Old myocardial infarction; F17.210 Nicotine dependence, cigarettes, uncomplicated; Z95.810 Presence of automatic (implantable) cardiac defibrillator; Z79.82 Long term (current) use of aspirin; Z79.899 Other long term (current) drug therapy
CPT/HCPCS: 36415; 71045; 80053; 80306; 80307; 81003; 83690; 84484; 85025; 85379; 85610; 85730; 87635; 93005; 94640; 96374; 99285; A9270; J2930; J7030; J7620-GY; U0002

== ENCOUNTER 2022-07-05 14:22 | Emergency (ER) | payer MEDICAID ==
[2022-07-05] MEDS ORDERED: Sodium Chloride 0.9% 10 ML Syringe FLUSH PRN (14:53)
[2022-07-05] MEDS ORDERED: Sodium Chloride 0.9% 1,000 ML IV SCH (15:00)
[2022-07-05 18:09] VITALS: BP 109/78; PULSE 69
[2022-07-05] MEDS ORDERED: Albuterol/Ipratropium 3.0-0.5 MG/3 ML Neb Soln NEB ONE (18:17)
== END 2022-07-05 18:09 | disposition home or self-care (01) ==
LOC: JD.ED 14:22
DX: R51.9 Headache, unspecified (principal); F10.920 Alcohol use, unspecified with intoxication, uncomplicated; I25.10 Atherosclerotic heart disease of native coronary artery without angina pectoris; I10 Essential (primary) hypertension; I25.2 Old myocardial infarction; E78.00 Pure hypercholesterolemia, unspecified; Z79.82 Long term (current) use of aspirin; Z79.899 Other long term (current) drug therapy; Z79.02 Long term (current) use of antithrombotics/antiplatelets; W18.30XA Fall on same level, unspecified, initial encounter
CPT/HCPCS: 36415; 70450; 70450-26; 71045; 71045-26; 80053; 80307; 84484; 85025; 93005; 93010; 99284

== ENCOUNTER 2022-09-23 07:52 | Inpatient (IN) | payer MEDICAID ==
[2022-09-23 08:24] LABS: BASOPHILS ABSOLUTE AUTO 0.05 K/mm3 (0.01-0.08); BASOPHILS PERCENT AUTO 0.6 % (0.1-1.2); EOSINOPHILS ABSOLUTE AUTO 0.17 K/mm3 (0.04-0.54); HEMATOCRIT 50.6 % (40.1-51.0); HEMOGLOBIN 16.9 gm/dl (13.7-17.5); IMMATURE GRAN ABSOLUTE AUTO 0.01 K/mm3 (0.00-0.10); IMMATURE GRAN PERCENT AUTO 0.1 % (<=1.0); LYMPHOCYTES ABSOLUTE AUTO 1.54 K/mm3 (1.32-3.57); LYMPHOCYTES PERCENT AUTO 17.7 % (21.8-53.1); MEAN CORPUSCULAR HEMOGLOBIN 31.8 pg (25.7-32.2); MEAN CORPUSCULAR HGB CONC 33.4 g/dl (32.2-35.5); MEAN CORPUSCULAR VOLUME 95.1 fl (79.0-92.2); MEAN PLATELET VOLUME 9.4 fl (9.4-12.3); MONOCYTES ABSOLUTE AUTO 0.64 K/mm3 (0.30-0.82); MONOCYTES PERCENT AUTO 7.4 % (5.3-12.2); NEUTROPHILS ABSOLUTE AUTO 6.27 K/mm3 (1.78-5.38); NEUTROPHILS PERCENT AUTO 72.2 % (34.0-67.9); PLATELET COUNT,PLT 240 K/mm3 (163-337); RED BLOOD CELL COUNT 5.32 M/mm3 (4.63-6.08); WHITE BLOOD CELL COUNT,WBC 8.68 K/mm3 (4.23-9.07)
[2022-09-23 08:37] LABS: INR 0.98; PROTHROMBIN TIME 10.5 SECONDS (9.7-12.0)
[2022-09-23 08:39] LABS: PTT,PARTIAL THROMBOPLSTIN TIME 30.2 SECONDS (21.7-31.4)
[2022-09-23] MEDS ORDERED: Iopamidol 612 MG/ML 100 ML Bottle IVPUSH ONE (08:40)
[2022-09-23] MEDS ORDERED: Iopamidol 612 MG/ML 30 ML SDV IV ONE (08:40)
[2022-09-23] MEDS: Sodium Chloride 0.9% 10 ML Syringe FLUSH PRN ×2 (08:44→09:30)
[2022-09-23 08:47] LABS: A/G RATIO 1.2 (1-2); ALBUMIN 4.7 g/dl (3.4-5.0); ANION GAP 10.9 (5-15); BILIRUBIN TOTAL 0.4 mg/dL (0.2-1.0); CALCIUM 8.5 mg/dL (8.5-10.1); CREATININE 0.8 mg/dL (0.7-1.3); EST CRCL DRUG DOSING (CG) 95.92 mL/min; ETHANOL BLOOD MEDICAL 0.35 gm% (0.00); POTASSIUM,K 3.9 mEq/L (3.5-5.1); PROTEIN TOTAL,TP 8.7 g/dl (6.4-8.2)
[2022-09-23] MEDS ORDERED: Morphine 2 MG/ML SYRINGE IVPUSH ONE (09:19)
[2022-09-23] MEDS ORDERED: Ondansetron 4 MG/2 ML SDV IVPUSH ONE (09:19)
[2022-09-23 09:24] LABS: APPEARANCE,URINE CLEAR (Clear); BILIRUBIN,URINE NEGATIVE (Negative); COLOR,URINE YELLOW (Yellow); GLUCOSE,URINE NEGATIVE (Negative); KETONES,URINE NEGATIVE (Negative); LEUKOCYTE ESTERASE,URINE NEGATIVE (Negative); NITRITE,URINE NEGATIVE (Negative); OCCULT BLOOD,URINE 1+ (Negative); PH,URINE 5.5 (5.0-8.0); PROTEIN,URINE NEGATIVE (Negative); UROBILINOGEN,URINE 0.2 (0.2-1.0)
[2022-09-23 09:31] LABS: BARBITURATE SCREEN,URINE NEGATIVE (CUTOFF=200); BENZODIAZEPINES SCREEN,URINE NEGATIVE (CUTOFF=150); BUPRENORPHINE SCREEN,URINE NEGATIVE (CUTOFF=10); METHADONE SCREEN, URINE NEGATIVE (CUT0FF=200); METHAMPHETAMINES SCREEN, URINE NEGATIVE (CUTOFF=500); OXYCODONE SCREEN,URINE NEGATIVE (CUT0FF=100); PROPOXYPHENE SCREEN,URINE NEGATIVE (CUTOFF=300); THC SCREEN,URINE 20 NG/ML NEGATIVE (CUTOFF=50)
[2022-09-23 09:33] LABS: AMPHETAMINES SCREEN, URINE NEGATIVE (CUTOFF=500)
[2022-09-23 10:03] LABS: RBC,URINE NOT SEEN /hpf (0-5); WBC,URINE NOT SEEN /hpf (0-5)
[2022-09-23 10:04] LABS: BACTERIA,URINE RARE /hpf (FEW); EPITHELIAL CELLS,URINE NOT SEEN /hpf (0-5); MUCUS,URINE NOT SEEN /hpf (FEW)
[2022-09-23] MEDS ORDERED: Diclofenac Sodium 1% Gel 100 GM Tube TOP ONE (10:50)
[2022-09-23 11:22] LABS: BASE EXCESS ARTERIAL 1.8 (-2-2.0); BICARBONATE,ARTERIAL 29.5 meq/L (22.0-26.0); O2 SATURATION ARTERIAL 87.9 % (96.0-97.0); PCO2 ARTERIAL 61.4 mmHg (35.0-45.0)
[2022-09-23] MEDS ORDERED: Acetaminophen/HYDROcodone 325-5 MG Tab PO ONE ×3 (12:18→18:01)
[2022-09-23] MEDS ORDERED: Thiamine 100 MG in Sodium Chloride 0.9% 50 ML IV SCH (20:15)
[2022-09-23] MEDS: NS + KCl 20mEq/L 1,000 ML IV SCH (21:05)
[2022-09-23] MEDS: Acetaminophen 325 MG Tab PO PRN (21:05)
[2022-09-23] MEDS: LORazepam 2 MG/ML SDV IV SCH (21:06)
[2022-09-23] MEDS: Ondansetron 4 MG/2 ML SDV IV PRN (21:06)
[2022-09-23] MEDS: Thiamine 200 MG/2 ML MDV IVPUSH SCH (21:06)
[2022-09-23] MEDS: oxyCODONE 5 MG Tab PO PRN (21:06)
[2022-09-23] MEDS: Diclofenac Sodium 1% Gel 100 GM Tube TOP PRN (21:07)
[2022-09-24] MEDS: oxyCODONE 5 MG Tab PO PRN ×5 (01:44→19:30)
[2022-09-24] MEDS: LORazepam 2 MG/ML SDV IV SCH ×3 (01:45→15:07)
[2022-09-24] MEDS: Acetaminophen 325 MG Tab PO PRN ×5 (01:45→19:30)
[2022-09-24 06:22] LABS: MEAN CORPUSCULAR HEMOGLOBIN 31.4 pg (25.7-32.2); MEAN CORPUSCULAR HGB CONC 32.8 g/dl (32.2-35.5); MEAN CORPUSCULAR VOLUME 95.8 fl (79.0-92.2); MEAN PLATELET VOLUME 10.1 fl (9.4-12.3); RED BLOOD CELL COUNT 4.49 M/mm3 (4.63-6.08); WHITE BLOOD CELL COUNT,WBC 10.29 K/mm3 (4.23-9.07)
[2022-09-24 06:30] LABS: A/G RATIO 1.1 (1-2); ALBUMIN 3.6 g/dl (3.4-5.0); ANION GAP 8.4 (5-15); BILIRUBIN TOTAL 1.4 mg/dL (0.2-1.0); BUN/CREATININE RATIO 11.4 (14-18); CALCIUM 8.4 mg/dL (8.5-10.1); CREATININE 0.7 mg/dL (0.7-1.3); EST CRCL DRUG DOSING (CG) 95.05 mL/min; MAGNESIUM 1.8 mg/dL (1.8-2.4); POTASSIUM,K 4.4 mEq/L (3.5-5.1); PROTEIN TOTAL,TP 6.9 g/dl (6.4-8.2)
[2022-09-24 06:46] LABS: HEMOGLOBIN 14.1 gm/dl (13.7-17.5); PLATELET COUNT,PLT 155 K/mm3 (163-337)
[2022-09-24] MEDS: Isosorbide Mononitrate 30 MG Tab.ER PO SCH (08:27)
[2022-09-24] MEDS: Clopidogrel 75 MG Tab PO SCH (08:27)
[2022-09-24] MEDS: Metoprolol Succinate 50 MG Tab.ER PO SCH (08:28)
[2022-09-24] MEDS: atorvaSTATin 40 MG Tab PO SCH (08:28)
[2022-09-24] MEDS: Amiodarone 200 MG Tab PO SCH (08:29)
[2022-09-24] MEDS: Aspirin 81 MG Tab.EC PO SCH (08:29)
[2022-09-24] MEDS: Ondansetron 4 MG/2 ML SDV IV PRN ×2 (08:35→19:56)
[2022-09-24] MEDS ORDERED: Enoxaparin 40 MG/0.4 ML Syringe SUBCUT SCH (09:00)
[2022-09-24] MEDS: NS + KCl 20mEq/L 1,000 ML IV SCH (09:19)
[2022-09-24] MEDS: Diclofenac Sodium 1% Gel 100 GM Tube TOP PRN ×2 (09:20→15:31)
[2022-09-24] MEDS: Thiamine 200 MG/2 ML MDV IVPUSH SCH (21:00)
[2022-09-25] MEDS: oxyCODONE 5 MG Tab PO PRN ×3 (03:35→15:22)
[2022-09-25] MEDS: Acetaminophen 325 MG Tab PO PRN ×4 (03:35→20:44)
[2022-09-25 06:21] LABS: HEMATOCRIT 42.3 % (40.1-51.0); HEMOGLOBIN 14.1 gm/dl (13.7-17.5); MEAN CORPUSCULAR HEMOGLOBIN 32.3 pg (25.7-32.2); MEAN CORPUSCULAR HGB CONC 33.3 g/dl (32.2-35.5); MEAN CORPUSCULAR VOLUME 96.8 fl (79.0-92.2); MEAN PLATELET VOLUME 9.6 fl (9.4-12.3); PLATELET COUNT,PLT 153 K/mm3 (163-337); RED BLOOD CELL COUNT 4.37 M/mm3 (4.63-6.08)
[2022-09-25] MEDS: LORazepam 2 MG/ML SDV IV SCH ×4 (06:30→17:57)
[2022-09-25] MEDS: Diclofenac Sodium 1% Gel 100 GM Tube TOP PRN (06:30)
[2022-09-25 06:48] LABS: ALBUMIN 3.4 g/dl (3.4-5.0); ANION GAP 5.5 (5-15); CALCIUM 8.6 mg/dL (8.5-10.1); CREATININE 0.9 mg/dL (0.7-1.3); EST CRCL DRUG DOSING (CG) 75.82 mL/min; MAGNESIUM 1.9 mg/dL (1.8-2.4); POTASSIUM,K 4.5 mEq/L (3.5-5.1); PROTEIN TOTAL,TP 6.9 g/dl (6.4-8.2)
[2022-09-25] MEDS: Ondansetron 4 MG/2 ML SDV IV PRN ×3 (07:47→20:44)
[2022-09-25] MEDS: Albuterol/Ipratropium 3.0-0.5 MG/3 ML Neb Soln NEB SCH ×3 (08:00→21:19)
[2022-09-25] MEDS: Metoprolol Succinate 50 MG Tab.ER PO SCH (08:46)
[2022-09-25] MEDS: atorvaSTATin 40 MG Tab PO SCH (08:46)
[2022-09-25] MEDS: Isosorbide Mononitrate 30 MG Tab.ER PO SCH (08:46)
[2022-09-25] MEDS: Amiodarone 200 MG Tab PO SCH (08:46)
[2022-09-25] MEDS: Clopidogrel 75 MG Tab PO SCH (08:46)
[2022-09-25] MEDS: Aspirin 81 MG Tab.EC PO SCH (08:46)
[2022-09-25] MEDS: Thiamine 100 MG Tab PO SCH (20:44)
[2022-09-26] MEDS: LORazepam 2 MG/ML SDV IV SCH ×3 (00:02→05:31)
[2022-09-26] MEDS: Ondansetron 4 MG/2 ML SDV IV PRN (05:31)
[2022-09-26] MEDS: Acetaminophen 325 MG Tab PO PRN ×2 (05:31→09:24)
[2022-09-26] MEDS: oxyCODONE 5 MG Tab PO PRN ×4 (05:31→20:20)
[2022-09-26] MEDS: Albuterol/Ipratropium 3.0-0.5 MG/3 ML Neb Soln NEB SCH ×3 (06:17→20:32)
[2022-09-26 06:29] LABS: HEMATOCRIT 43.5 % (40.1-51.0); HEMOGLOBIN 14.1 gm/dl (13.7-17.5); MEAN CORPUSCULAR HEMOGLOBIN 31.3 pg (25.7-32.2); MEAN CORPUSCULAR HGB CONC 32.4 g/dl (32.2-35.5); MEAN CORPUSCULAR VOLUME 96.5 fl (79.0-92.2); MEAN PLATELET VOLUME 10.4 fl (9.4-12.3); PLATELET COUNT,PLT 157 K/mm3 (163-337); RED BLOOD CELL COUNT 4.51 M/mm3 (4.63-6.08); WHITE BLOOD CELL COUNT,WBC 8.88 K/mm3 (4.23-9.07)
[2022-09-26 06:45] LABS: ALBUMIN 3.3 g/dl (3.4-5.0); ANION GAP 8.3 (5-15); BUN/CREATININE RATIO 11.3 (14-18); CALCIUM 8.7 mg/dL (8.5-10.1); CREATININE 0.8 mg/dL (0.7-1.3); EST CRCL DRUG DOSING (CG) 84.34 mL/min; POTASSIUM,K 4.3 mEq/L (3.5-5.1); PROTEIN TOTAL,TP 6.7 g/dl (6.4-8.2)
[2022-09-26] MEDS: Isosorbide Mononitrate 30 MG Tab.ER PO SCH (09:17)
[2022-09-26] MEDS: Amiodarone 200 MG Tab PO SCH (09:19)
[2022-09-26] MEDS: Clopidogrel 75 MG Tab PO SCH (09:21)
[2022-09-26] MEDS: Metoprolol Succinate 50 MG Tab.ER PO SCH (09:22)
[2022-09-26] MEDS: atorvaSTATin 40 MG Tab PO SCH (09:22)
[2022-09-26] MEDS: Aspirin 81 MG Tab.EC PO SCH (09:23)
[2022-09-26] MEDS: Diclofenac Sodium 1% Gel 100 GM Tube TOP PRN (20:16)
[2022-09-26] MEDS: Thiamine 100 MG Tab PO SCH (20:16)
[2022-09-27 05:56] LABS: A/G RATIO 0.9 (1-2); ALBUMIN 3.4 g/dl (3.4-5.0); ANION GAP 10.2 (5-15); BILIRUBIN TOTAL 0.9 mg/dL (0.2-1.0); BUN/CREATININE RATIO 12.5 (14-18); CALCIUM 8.9 mg/dL (8.5-10.1); CREATININE 0.8 mg/dL (0.7-1.3); EST CRCL DRUG DOSING (CG) 85.71 mL/min; POTASSIUM,K 4.2 mEq/L (3.5-5.1); PROTEIN TOTAL,TP 7.4 g/dl (6.4-8.2)
[2022-09-27] MEDS: Diclofenac Sodium 1% Gel 100 GM Tube TOP PRN (06:01)
[2022-09-27] MEDS: oxyCODONE 5 MG Tab PO PRN ×3 (06:01→17:39)
[2022-09-27] MEDS: Albuterol/Ipratropium 3.0-0.5 MG/3 ML Neb Soln NEB SCH ×3 (06:19→21:03)
[2022-09-27] MEDS: Aspirin 81 MG Tab.EC PO SCH (09:49)
[2022-09-27] MEDS: Isosorbide Mononitrate 30 MG Tab.ER PO SCH (09:50)
[2022-09-27] MEDS: Acetaminophen 325 MG Tab PO SCH ×3 (09:50→20:31)
[2022-09-27] MEDS: Clopidogrel 75 MG Tab PO SCH (09:50)
[2022-09-27] MEDS: Amiodarone 200 MG Tab PO SCH (09:52)
[2022-09-27] MEDS: atorvaSTATin 40 MG Tab PO SCH (09:52)
[2022-09-27] MEDS: Metoprolol Succinate 50 MG Tab.ER PO SCH (09:52)
[2022-09-27] MEDS: Ondansetron 4 MG Tab.DIS PO PRN (13:05)
[2022-09-27] MEDS: Thiamine 100 MG Tab PO SCH (20:32)
[2022-09-28] MEDS: oxyCODONE 5 MG Tab PO PRN ×4 (02:36→20:09)
[2022-09-28] MEDS: Acetaminophen 325 MG Tab PO SCH ×4 (02:37→20:11)
[2022-09-28] MEDS: Albuterol/Ipratropium 3.0-0.5 MG/3 ML Neb Soln NEB SCH ×3 (06:24→21:04)
[2022-09-28] MEDS: Clopidogrel 75 MG Tab PO SCH (08:26)
[2022-09-28] MEDS: Amiodarone 200 MG Tab PO SCH (08:26)
[2022-09-28] MEDS: Metoprolol Succinate 50 MG Tab.ER PO SCH (08:26)
[2022-09-28] MEDS: atorvaSTATin 40 MG Tab PO SCH (08:26)
[2022-09-28] MEDS: Aspirin 81 MG Tab.EC PO SCH (08:27)
[2022-09-28] MEDS: Isosorbide Mononitrate 30 MG Tab.ER PO SCH (08:27)
[2022-09-28] MEDS: Diclofenac Sodium 1% Gel 100 GM Tube TOP PRN (16:14)
[2022-09-28] MEDS: Thiamine 100 MG Tab PO SCH (20:12)
[2022-09-29] MEDS: Acetaminophen 325 MG Tab PO SCH ×4 (02:01→19:59)
[2022-09-29] MEDS: oxyCODONE 5 MG Tab PO PRN ×5 (02:02→23:11)
[2022-09-29] MEDS: Albuterol/Ipratropium 3.0-0.5 MG/3 ML Neb Soln NEB SCH ×3 (06:05→20:22)
[2022-09-29] MEDS: Ondansetron 4 MG Tab.DIS PO PRN ×3 (06:27→18:38)
[2022-09-29] MEDS: Lidocaine 4% 1 each Patch TOP PRN (08:34)
[2022-09-29] MEDS: Diclofenac Sodium 1% Gel 100 GM Tube TOP PRN ×2 (08:35→20:00)
[2022-09-29] MEDS: Aspirin 81 MG Tab.EC PO SCH (08:36)
[2022-09-29] MEDS: atorvaSTATin 40 MG Tab PO SCH (08:36)
[2022-09-29] MEDS: Isosorbide Mononitrate 30 MG Tab.ER PO SCH (08:36)
[2022-09-29] MEDS: Amiodarone 200 MG Tab PO SCH (08:36)
[2022-09-29] MEDS: Clopidogrel 75 MG Tab PO SCH (08:36)
[2022-09-29] MEDS: Metoprolol Succinate 50 MG Tab.ER PO SCH (08:40)
[2022-09-29] MEDS: Thiamine 100 MG Tab PO SCH (19:59)
[2022-09-29] MEDS ORDERED: Zolpidem 10 MG Tab PO SCH (21:00)
[2022-09-29] MEDS: Calcium Carbonate 500 MG Tab.Chew PO PRN (23:11)
[2022-09-30] MEDS: Acetaminophen 325 MG Tab PO SCH ×2 (01:34→08:20)
[2022-09-30] MEDS: Calcium Carbonate 500 MG Tab.Chew PO PRN (01:50)
[2022-09-30] MEDS: Ondansetron 4 MG Tab.DIS PO PRN ×3 (01:50→12:35)
[2022-09-30] MEDS: oxyCODONE 5 MG Tab PO PRN ×2 (05:47→09:54)
[2022-09-30] MEDS: Albuterol/Ipratropium 3.0-0.5 MG/3 ML Neb Soln NEB SCH (06:06)
[2022-09-30] MEDS: Aspirin 81 MG Tab.EC PO SCH (08:20)
[2022-09-30] MEDS: atorvaSTATin 40 MG Tab PO SCH (08:20)
[2022-09-30] MEDS: Clopidogrel 75 MG Tab PO SCH (08:20)
[2022-09-30] MEDS: Metoprolol Succinate 50 MG Tab.ER PO SCH (08:22)
[2022-09-30] MEDS: Amiodarone 200 MG Tab PO SCH (08:22)
[2022-09-30] MEDS: Isosorbide Mononitrate 30 MG Tab.ER PO SCH (08:22)
[2022-09-30 12:14] VITALS: BP 102/60; PULSE 84
[2022-09-30] MEDS: Lidocaine 4% 1 each Patch TOP PRN (12:31)
== END 2022-09-30 13:00 | DRG 535 ==
LOC: JD.ED 07:52 → JD.ICU 19:25 → JD.MS 09-27 11:30
PROVIDERS: ADMIT Internal Medicine; ATTEND Internal Medicine
DX: S72.111A Displaced fracture of greater trochanter of right femur, initial encounter for closed fracture (principal); J96.01 Acute respiratory failure with hypoxia; I50.22 Chronic systolic (congestive) heart failure; I11.0 Hypertensive heart disease with heart failure; F10.129 Alcohol abuse with intoxication, unspecified; I10 Essential (primary) hypertension; I25.10 Atherosclerotic heart disease of native coronary artery without angina pectoris; F32.A Depression, unspecified; E78.00 Pure hypercholesterolemia, unspecified; J43.9 Emphysema, unspecified; F17.210 Nicotine dependence, cigarettes, uncomplicated; I48.91 Unspecified atrial fibrillation; Z79.02 Long term (current) use of antithrombotics/antiplatelets; Z79.82 Long term (current) use of aspirin; Z79.899 Other long term (current) drug therapy; Z87.81 Personal history of (healed) traumatic fracture; I25.2 Old myocardial infarction; Z95.5 Presence of coronary angioplasty implant and graft; Z95.810 Presence of automatic (implantable) cardiac defibrillator; W19.XXXA Unspecified fall, initial encounter
CPT/HCPCS: 36415; 36600; 70450; 71260; 72125; 73552; 73700; 74177; 80053; 80306; 80307; 81001; 82803; 83735; 85025; 85610; 85730; 96374; 96375; 99285; A9270 ×4; J2270; J2405; J3490 ×2; Q9967 ×2; 71045; 71045-26; 85027; 93005; 94640; 94761; 94762; 97116-GP; 97162-GP; 97165-GO; 97530-GO; 97530-GP; 99284; J2060; J3411; J3480; J7620-GY

== ENCOUNTER 2023-06-25 21:23 | Emergency (ER) | payer MEDICAID ==
[2023-06-25 21:50] VITALS: PULSE 80
[2023-06-25 22:07] LABS: APPEARANCE,URINE CLEAR (Clear); BILIRUBIN,URINE 2+ (Negative); COLOR,URINE YELLOW (Yellow); GLUCOSE,URINE NEGATIVE (Negative); KETONES,URINE TRACE (Negative); LEUKOCYTE ESTERASE,URINE NEGATIVE (Negative); NITRITE,URINE NEGATIVE (Negative); OCCULT BLOOD,URINE 2+ (Negative); PH,URINE 5.5 (5.0-8.0); PROTEIN,URINE NEGATIVE (Negative)
[2023-06-25 22:14] LABS: EOSINOPHILS PERCENT AUTO 3.2 % (0.0-6.0); HEMATOCRIT 49.1 % (42.0-52.0); HEMOGLOBIN 16.6 gm/dl (14.0-18.0); LYMPHOCYTES PERCENT AUTO 21.1 % (24.0-44.0); MEAN CORPUSCULAR HEMOGLOBIN 30.2 pg (28.0-32.0); MEAN CORPUSCULAR HGB CONC 33.8 g/dl (32.0-36.0); MEAN CORPUSCULAR VOLUME 89.4 fl (83.0-99.0); MEAN PLATELET VOLUME 9.2 fl (9.4-12.4); MONOCYTES PERCENT AUTO 18.4 % (0.0-8.0); NEUTROPHILS PERCENT AUTO 56.6 % (41.0-71.0); PLATELET COUNT,PLT 197 K/mm3 (150-400); RED BLOOD CELL COUNT 5.49 M/mm3 (4.52-5.90); WHITE BLOOD CELL COUNT,WBC 6.92 K/mm3 (3.9-11.3)
[2023-06-25 22:15] LABS: BASOPHILS PERCENT AUTO 0.4 % (0.0-1.0); EOSINOPHILS ABSOLUTE AUTO 0.2 K/mm3 (0.0-0.4); IMMATURE GRAN ABSOLUTE AUTO 0.02 K/mm3 (0.00-0.05); IMMATURE GRAN PERCENT AUTO 0.3 % (0.0-0.4); LYMPHOCYTES ABSOLUTE AUTO 1.5 K/mm3 (1.0-4.8); MONOCYTES ABSOLUTE AUTO 1.3 K/mm3 (0.0-0.8); NEUTROPHILS ABSOLUTE AUTO 3.9 K/mm3 (1.8-7.7)
[2023-06-25 22:19] LABS: BACTERIA,URINE FEW /hpf (FEW); MUCUS,URINE MODERATE /hpf (FEW); SQUAMOUS EPITHELIAL CELLS,UR 0-5 /hpf (0-5); WBC,URINE 0-5 /hpf (0-5)
[2023-06-25] MEDS: Albuterol/Ipratropium 3.0-0.5 MG/3 ML Neb Soln NEB ONE (22:36)
[2023-06-25 22:47] LABS: AMPHETAMINES SCREEN, URINE NEGATIVE (CUTOFF=500); BARBITURATE SCREEN,URINE NEGATIVE (CUTOFF=200); BENZODIAZEPINES SCREEN,URINE NEGATIVE (CUTOFF=150); BUPRENORPHINE SCREEN,URINE NEGATIVE (CUTOFF=10); METHADONE SCREEN, URINE NEGATIVE (CUT0FF=200); METHAMPHETAMINES SCREEN, URINE NEGATIVE (CUTOFF=500); OXYCODONE SCREEN,URINE NEGATIVE (CUT0FF=100); THC SCREEN,URINE 20 NG/ML PRESUMPTIVE POSITIVE (CUTOFF=50)
[2023-06-25 23:02] LABS: ALBUMIN 3.7 g/dl (3.4-5.0); ANION GAP 13.6 (5-15); BILIRUBIN TOTAL 0.7 mg/dL (0.2-1.0); BUN/CREATININE RATIO 14.2 (14-18); CALCIUM 9.2 mg/dL (8.5-10.1); CREATININE 1.2 mg/dL (0.7-1.3); EST CRCL DRUG DOSING (CG) 52.06 mL/min; MAGNESIUM 1.9 mg/dL (1.8-2.4); POTASSIUM,K 3.6 mEq/L (3.5-5.1); PROTEIN TOTAL,TP 7.5 g/dl (6.4-8.2)
[2023-06-25] MEDS: Furosemide 40 MG/4 ML VIAL IVPUSH ONE (23:53)
[2023-06-26] MEDS: Sodium Chloride 0.9% 100 ML IV SCH (00:17)
[2023-06-26] MEDS: Iopamidol 755 Mg/ML 100 ML Bottle IVPUSH ONE (00:17)
[2023-06-26] MEDS: Acetaminophen/HYDROcodone 325-5 MG Tab PO ONE (02:52)
[2023-06-26 03:22] VITALS: BP 113/85
== END 2023-06-26 03:00 | disposition home or self-care (01) ==
LOC: JD.ED 21:23
DX: N20.0 Calculus of kidney (principal); M47.816 Spondylosis without myelopathy or radiculopathy, lumbar region; Z79.82 Long term (current) use of aspirin; Z95.0 Presence of cardiac pacemaker; Z95.5 Presence of coronary angioplasty implant and graft
CPT/HCPCS: 36415; 71046; 71275; 74176; 80053; 80306; 80307; 81001; 83690; 83735; 83880; 84484; 85025; 85379; 93005; 94640; 96374; 99285; A9270; J1940; J3490; Q9967; J7620-GY

== ENCOUNTER 2023-07-12 15:20 | Emergency (ER) | payer MEDICAID ==
[2023-07-12] MEDS: Sodium Chloride 0.9% 10 ML Syringe FLUSH PRN (15:48)
[2023-07-12 16:06] LABS: BASOPHILS PERCENT AUTO 0.3 % (0.0-1.0); EOSINOPHILS PERCENT AUTO 0.4 % (0.0-6.0); HEMATOCRIT 49.5 % (42.0-52.0); HEMOGLOBIN 16.6 gm/dl (14.0-18.0); IMMATURE GRAN ABSOLUTE AUTO 0.02 K/mm3 (0.00-0.05); IMMATURE GRAN PERCENT AUTO 0.3 % (0.0-0.4); LYMPHOCYTES ABSOLUTE AUTO 1.2 K/mm3 (1.0-4.8); LYMPHOCYTES PERCENT AUTO 16.3 % (24.0-44.0); MEAN CORPUSCULAR HEMOGLOBIN 30.2 pg (28.0-32.0); MEAN CORPUSCULAR HGB CONC 33.5 g/dl (32.0-36.0); MEAN PLATELET VOLUME 8.5 fl (9.4-12.4); MONOCYTES ABSOLUTE AUTO 0.6 K/mm3 (0.0-0.8); MONOCYTES PERCENT AUTO 8.4 % (0.0-8.0); NEUTROPHILS ABSOLUTE AUTO 5.5 K/mm3 (1.8-7.7); NEUTROPHILS PERCENT AUTO 74.3 % (41.0-71.0); PLATELET COUNT,PLT 292 K/mm3 (150-400); WHITE BLOOD CELL COUNT,WBC 7.34 K/mm3 (3.9-11.3)
[2023-07-12 16:12] LABS: APPEARANCE,URINE CLEAR (Clear); BILIRUBIN,URINE NEGATIVE (Negative); COLOR,URINE YELLOW (Yellow); GLUCOSE,URINE NEGATIVE (Negative); KETONES,URINE NEGATIVE (Negative); LEUKOCYTE ESTERASE,URINE NEGATIVE (Negative); NITRITE,URINE NEGATIVE (Negative); OCCULT BLOOD,URINE TRACE-INTACT (Negative); PROTEIN,URINE NEGATIVE (Negative); UROBILINOGEN,URINE 0.2 (0.2-1.0)
[2023-07-12 16:26] LABS: AMPHETAMINES SCREEN, URINE NEGATIVE (CUTOFF=500); BARBITURATE SCREEN,URINE NEGATIVE (CUTOFF=200); BENZODIAZEPINES SCREEN,URINE NEGATIVE (CUTOFF=150); BUPRENORPHINE SCREEN,URINE NEGATIVE (CUTOFF=10); METHADONE SCREEN, URINE NEGATIVE (CUT0FF=200); METHAMPHETAMINES SCREEN, URINE NEGATIVE (CUTOFF=500); OXYCODONE SCREEN,URINE NEGATIVE (CUT0FF=100); THC SCREEN,URINE 20 NG/ML NEGATIVE (CUTOFF=50)
[2023-07-12 16:30] LABS: BACTERIA,URINE FEW /hpf (FEW); MUCUS,URINE FEW /hpf (FEW); RBC,URINE 0-5 /hpf (0-5); SQUAMOUS EPITHELIAL CELLS,UR 0-5 /hpf (0-5); WBC,URINE 0-5 /hpf (0-5)
[2023-07-12 16:31] LABS: A/G RATIO 1.2 (1-2); ALBUMIN 4.3 g/dl (3.4-5.0); ANION GAP 12.9 (5-15); BILIRUBIN TOTAL 0.5 mg/dL (0.2-1.0); BUN/CREATININE RATIO 3.8 (14-18); CALCIUM 8.5 mg/dL (8.5-10.1); CREATININE 0.8 mg/dL (0.7-1.3); EST CRCL DRUG DOSING (CG) 102.13 mL/min; ETHANOL BLOOD MEDICAL 0.39 gm% (0.00); POTASSIUM,K 3.9 mEq/L (3.5-5.1)
[2023-07-12] MEDS: Furosemide 20 MG/2 ML VIAL IVPUSH ONE (17:17)
[2023-07-12] MEDS: Acetaminophen 325 MG Tab PO ONE (19:52)
[2023-07-12 21:43] VITALS: BP 119/80; PULSE 88
== END 2023-07-12 21:05 | disposition left against medical advice (07) ==
LOC: JD.ED 15:20
DX: R07.9 Chest pain, unspecified (principal); Z53.29 Procedure and treatment not carried out because of patient's decision for other reasons; Z79.82 Long term (current) use of aspirin; Z79.899 Other long term (current) drug therapy
CPT/HCPCS: 36415; 71046; 80053; 80306; 80307; 81001; 83690; 83735; 83880; 84484; 85025; 93005; 96374; 99285; A9270; J1940; J3490; 93010; 99284

== ENCOUNTER 2024-03-07 15:48 | Inpatient (IN) | payer MEDICAID ==
[2024-03-07] MEDS ORDERED: Sodium Chloride 0.9% 10 ML Syringe FLUSH PRN (16:34)
[2024-03-07 16:52] LABS: BASOPHILS PERCENT AUTO 0.4 % (0.0-1.0); EOSINOPHILS PERCENT AUTO 0.5 % (0.0-6.0); HEMATOCRIT 55.2 % (42.0-52.0); HEMOGLOBIN 17.9 gm/dl (14.0-18.0); IMMATURE GRAN ABSOLUTE AUTO 0.02 K/mm3 (0.00-0.05); IMMATURE GRAN PERCENT AUTO 0.3 % (0.0-0.4); LYMPHOCYTES ABSOLUTE AUTO 1.2 K/mm3 (1.0-4.8); LYMPHOCYTES PERCENT AUTO 16.4 % (24.0-44.0); MEAN CORPUSCULAR HEMOGLOBIN 30.4 pg (28.0-32.0); MEAN CORPUSCULAR HGB CONC 32.4 g/dl (32.0-36.0); MEAN CORPUSCULAR VOLUME 93.9 fl (83.0-99.0); MEAN PLATELET VOLUME 9.6 fl (9.4-12.4); MONOCYTES ABSOLUTE AUTO 0.8 K/mm3 (0.0-0.8); MONOCYTES PERCENT AUTO 11.4 % (0.0-8.0); NEUTROPHILS ABSOLUTE AUTO 5.3 K/mm3 (1.8-7.7); PLATELET COUNT,PLT 201 K/mm3 (150-400); RED BLOOD CELL COUNT 5.88 M/mm3 (4.52-5.90); WHITE BLOOD CELL COUNT,WBC 7.39 K/mm3 (3.9-11.3)
[2024-03-07 17:25] LABS: A/G RATIO 1.1 (1-2); ALBUMIN 4.5 g/dl (3.4-5.0); ANION GAP 11.7 (5-15); BILIRUBIN TOTAL 0.6 mg/dL (0.2-1.0); BUN/CREATININE RATIO 8.9 (14-18); C-REACTIVE PROTEIN 1.06 mg/dL (<0.30); CREATININE 0.9 mg/dL (0.7-1.3); EST CRCL DRUG DOSING (CG) 86.71 mL/min; ETHANOL BLOOD MEDICAL 0.21 gm% (0.00); POTASSIUM,K 3.7 mEq/L (3.5-5.1); PROTEIN TOTAL,TP 8.5 g/dl (6.4-8.2)
[2024-03-07] MEDS: Furosemide 20 MG/2 ML VIAL IVPUSH ONE ×2 (17:34→18:06)
[2024-03-07] MEDS: Morphine 2 MG/ML SYRINGE IVPUSH ONE (18:03)
[2024-03-07] MEDS: Albuterol/Ipratropium 3.0-0.5 MG/3 ML Neb Soln NEB ONE (18:53)
[2024-03-07] MEDS: Nitroglycerin 0.4 MG Tab.SL SL ONE (19:49)
[2024-03-08] MEDS: Ondansetron 4 MG/2 ML SDV IV PRN (02:35)
[2024-03-08] MEDS: Nitroglycerin 0.4 MG Tab.SL SL ONE (07:29)
[2024-03-08 07:47] LABS: BASE EXCESS ARTERIAL 4.2 (-2-2.0); BICARBONATE,ARTERIAL 31.3 meq/L (22.0-26.0); O2 SATURATION ARTERIAL 87.6 % (96.0-97.0)
[2024-03-08 07:48] LABS: BASOPHILS ABSOLUTE AUTO 0.1 K/mm3 (0.0-0.2); BASOPHILS PERCENT AUTO 0.8 % (0.0-1.0); EOSINOPHILS ABSOLUTE AUTO 0.5 K/mm3 (0.0-0.4); EOSINOPHILS PERCENT AUTO 7.1 % (0.0-6.0); HEMATOCRIT 47.6 % (42.0-52.0); IMMATURE GRAN ABSOLUTE AUTO 0.02 K/mm3 (0.00-0.05); IMMATURE GRAN PERCENT AUTO 0.3 % (0.0-0.4); LYMPHOCYTES ABSOLUTE AUTO 2.3 K/mm3 (1.0-4.8); LYMPHOCYTES PERCENT AUTO 30.4 % (24.0-44.0); MEAN CORPUSCULAR HEMOGLOBIN 31.1 pg (28.0-32.0); MEAN CORPUSCULAR HGB CONC 33.2 g/dl (32.0-36.0); MEAN CORPUSCULAR VOLUME 93.7 fl (83.0-99.0); MEAN PLATELET VOLUME 10.8 fl (9.4-12.4); MONOCYTES ABSOLUTE AUTO 1.2 K/mm3 (0.0-0.8); MONOCYTES PERCENT AUTO 15.9 % (0.0-8.0); NEUTROPHILS ABSOLUTE AUTO 3.4 K/mm3 (1.8-7.7); NEUTROPHILS PERCENT AUTO 45.5 % (41.0-71.0); PLATELET COUNT,PLT 176 K/mm3 (150-400); RED BLOOD CELL COUNT 5.08 M/mm3 (4.52-5.90); WHITE BLOOD CELL COUNT,WBC 7.47 K/mm3 (3.9-11.3)
[2024-03-08] MEDS: Sodium Chloride 0.9% 500 ML IV ONE ×2 (08:00→11:50)
[2024-03-08] MEDS: Tamsulosin 0.4 MG Cap.ER PO SCH (08:01)
[2024-03-08] MEDS: Enoxaparin 40 MG/0.4 ML Syringe SUBCUT SCH (08:01)
[2024-03-08] MEDS: Aspirin 81 MG Tab.EC PO SCH (08:01)
[2024-03-08] MEDS: PARoxetine 20 MG Tab PO SCH (08:01)
[2024-03-08] MEDS: Clopidogrel 75 MG Tab PO SCH (08:01)
[2024-03-08] MEDS: Amiodarone 200 MG Tab PO SCH (08:01)
[2024-03-08] MEDS: atorvaSTATin 40 MG Tab PO SCH (08:01)
[2024-03-08 08:02] LABS: HEMOGLOBIN 15.8 gm/dl (14.0-18.0)
[2024-03-08] MEDS: Metoprolol Succinate 50 MG Tab.ER PO SCH (08:07)
[2024-03-08 08:11] LABS: ALBUMIN 3.4 g/dl (3.4-5.0); BILIRUBIN TOTAL 0.7 mg/dL (0.2-1.0); BUN/CREATININE RATIO 18.6 (14-18); CALCIUM 8.6 mg/dL (8.5-10.1); CREATININE 0.7 mg/dL (0.7-1.3); EST CRCL DRUG DOSING (CG) 89.58 mL/min; PROTEIN TOTAL,TP 6.8 g/dl (6.4-8.2)
[2024-03-08] MEDS ORDERED: Sodium Chloride 0.9% 10 ML Syringe FLUSH PRN (08:20)
[2024-03-08] MEDS ORDERED: oxyCODONE 5 MG Tab PO PRN (08:23)
[2024-03-08] MEDS ORDERED: Albuterol 0.083% 2.5 MG/3 ML Neb Soln NEB PRN (08:23)
[2024-03-08] MEDS: Sodium Chloride 0.9% 100 ML IV SCH (08:43)
[2024-03-08] MEDS: Iopamidol 755 Mg/ML 100 ML Bottle IVPUSH ONE (08:43)
[2024-03-08] MEDS ORDERED: Polyethylene Glycol 3350 Powder 17 GM Packet PO PRN (09:00)
[2024-03-08] MEDS ORDERED: Isosorbide Mononitrate 30 MG Tab.ER PO SCH (09:00)
[2024-03-08] MEDS ORDERED: Furosemide 20 MG Tab PO SCH (09:00)
[2024-03-08] MEDS: Thiamine 100 MG Tab PO SCH (09:45)
[2024-03-08] MEDS: Pantoprazole 40 MG Tab.CR PO SCH (09:45)
[2024-03-08] MEDS: Folic Acid 1 MG Tab PO SCH (09:45)
[2024-03-08] MEDS ORDERED: Albuterol/Ipratropium 3.0-0.5 MG/3 ML Neb Soln NEB PRN (10:00)
[2024-03-08] MEDS: Albuterol/Ipratropium 3.0-0.5 MG/3 ML Neb Soln NEB SCH (11:39)
[2024-03-08] MEDS: guaiFENesin 600 MG Tab.ER PO SCH (11:50)
[2024-03-08 14:04] LABS: MAGNESIUM 1.6 mg/dL (1.8-2.4); TSH 4.054 uIU/mL (0.358-3.74)
[2024-03-08 14:28] LABS: T4 FREE 1.3 ng/dL (0.76-1.46)
[2024-03-08] MEDS: Magnesium Sulfate/Water Premix 2 GM in Premix Bag 1 BAG IV ONE (14:39)
[2024-03-08] MEDS: Empagliflozin 10 MG Tab PO SCH (18:07)
[2024-03-08] MEDS: Gabapentin 300 MG Cap PO SCH (20:01)
[2024-03-08] MEDS: Acetaminophen 325 MG Tab PO PRN (20:05)
[2024-03-09 04:53] LABS: BASOPHILS PERCENT AUTO 0.3 % (0.0-1.0); EOSINOPHILS ABSOLUTE AUTO 0.2 K/mm3 (0.0-0.4); EOSINOPHILS PERCENT AUTO 2.1 % (0.0-6.0); HEMATOCRIT 43.6 % (42.0-52.0); HEMOGLOBIN 14.3 gm/dl (14.0-18.0); IMMATURE GRAN ABSOLUTE AUTO 0.02 K/mm3 (0.00-0.05); IMMATURE GRAN PERCENT AUTO 0.3 % (0.0-0.4); LYMPHOCYTES ABSOLUTE AUTO 1.3 K/mm3 (1.0-4.8); LYMPHOCYTES PERCENT AUTO 18.9 % (24.0-44.0); MEAN CORPUSCULAR HEMOGLOBIN 31.2 pg (28.0-32.0); MEAN CORPUSCULAR HGB CONC 32.8 g/dl (32.0-36.0); MONOCYTES ABSOLUTE AUTO 0.8 K/mm3 (0.0-0.8); MONOCYTES PERCENT AUTO 10.7 % (0.0-8.0); NEUTROPHILS ABSOLUTE AUTO 4.7 K/mm3 (1.8-7.7); NEUTROPHILS PERCENT AUTO 67.7 % (41.0-71.0); PLATELET COUNT,PLT 127 K/mm3 (150-400); RED BLOOD CELL COUNT 4.59 M/mm3 (4.52-5.90)
[2024-03-09 06:16] LABS: A/G RATIO 1.1 (1-2); ALBUMIN 3.3 g/dl (3.4-5.0); BILIRUBIN TOTAL 0.5 mg/dL (0.2-1.0); BUN/CREATININE RATIO 16.3 (14-18); CALCIUM 8.3 mg/dL (8.5-10.1); CREATININE 0.8 mg/dL (0.7-1.3); EST CRCL DRUG DOSING (CG) 81.8 mL/min; MAGNESIUM 1.9 mg/dL (1.8-2.4); PROTEIN TOTAL,TP 6.2 g/dl (6.4-8.2)
[2024-03-09 06:17] LABS: SLIDE REVIEW NORMAL SMEAR
[2024-03-09] MEDS: Lisinopril 2.5 MG Tab PO SCH (08:15)
[2024-03-09] MEDS: Furosemide 20 MG Tab PO SCH (08:16)
[2024-03-09] MEDS: Sodium Chloride 0.9% 250 ML IV SCH (11:05)
[2024-03-09] MEDS: Docusate Sodium 100 MG Cap PO PRN (16:58)
[2024-03-09] MEDS: traZODone 50 MG Tab PO SCH (20:00)
[2024-03-10 05:38] LABS: BASOPHILS PERCENT AUTO 0.4 % (0.0-1.0); EOSINOPHILS ABSOLUTE AUTO 0.3 K/mm3 (0.0-0.4); EOSINOPHILS PERCENT AUTO 3.6 % (0.0-6.0); HEMATOCRIT 44.6 % (42.0-52.0); HEMOGLOBIN 14.3 gm/dl (14.0-18.0); IMMATURE GRAN ABSOLUTE AUTO 0.02 K/mm3 (0.00-0.05); IMMATURE GRAN PERCENT AUTO 0.3 % (0.0-0.4); LYMPHOCYTES ABSOLUTE AUTO 1.9 K/mm3 (1.0-4.8); LYMPHOCYTES PERCENT AUTO 25.3 % (24.0-44.0); MEAN CORPUSCULAR HGB CONC 32.1 g/dl (32.0-36.0); MEAN CORPUSCULAR VOLUME 96.7 fl (83.0-99.0); MEAN PLATELET VOLUME 10.3 fl (9.4-12.4); MONOCYTES ABSOLUTE AUTO 0.8 K/mm3 (0.0-0.8); MONOCYTES PERCENT AUTO 10.3 % (0.0-8.0); NEUTROPHILS ABSOLUTE AUTO 4.4 K/mm3 (1.8-7.7); NEUTROPHILS PERCENT AUTO 60.1 % (41.0-71.0); PLATELET COUNT,PLT 162 K/mm3 (150-400); RED BLOOD CELL COUNT 4.61 M/mm3 (4.52-5.90)
[2024-03-10 06:26] LABS: A/G RATIO 1.1 (1-2); ALBUMIN 3.2 g/dl (3.4-5.0); ANION GAP 7.4 (5-15); BILIRUBIN TOTAL 0.8 mg/dL (0.2-1.0); BUN/CREATININE RATIO 18.9 (14-18); CALCIUM 8.5 mg/dL (8.5-10.1); CREATININE 0.9 mg/dL (0.7-1.3); EST CRCL DRUG DOSING (CG) 72.53 mL/min; POTASSIUM,K 4.4 mEq/L (3.5-5.1); PROTEIN TOTAL,TP 6.1 g/dl (6.4-8.2)
[2024-03-10] MEDS ORDERED: Sodium Chloride 0.9% 250 ML IV SCH (07:15)
[2024-03-10] MEDS: Metoprolol Succinate 25 MG Tab.ER PO SCH (08:17)
[2024-03-10] MEDS: LORazepam 0.5 MG Tab PO PRN (08:28)
[2024-03-10] MEDS: Sodium Chloride 0.9% 250 ML IV ONE (13:29)
[2024-03-10] MEDS: Sodium Chloride 0.9% 250 ML IV SCH ×2 (14:03→17:29)
[2024-03-10] MEDS: Formoterol/Mometasone 100-5 MCG 8.8 GM Inhaler INH SCH (21:39)
[2024-03-11 05:33] LABS: BASOPHILS PERCENT AUTO 0.4 % (0.0-1.0); EOSINOPHILS ABSOLUTE AUTO 0.4 K/mm3 (0.0-0.4); EOSINOPHILS PERCENT AUTO 5.2 % (0.0-6.0); HEMATOCRIT 41.3 % (42.0-52.0); HEMOGLOBIN 13.5 gm/dl (14.0-18.0); IMMATURE GRAN ABSOLUTE AUTO 0.01 K/mm3 (0.00-0.05); IMMATURE GRAN PERCENT AUTO 0.1 % (0.0-0.4); LYMPHOCYTES ABSOLUTE AUTO 1.7 K/mm3 (1.0-4.8); LYMPHOCYTES PERCENT AUTO 25.3 % (24.0-44.0); MEAN CORPUSCULAR HEMOGLOBIN 31.7 pg (28.0-32.0); MEAN CORPUSCULAR HGB CONC 32.7 g/dl (32.0-36.0); MEAN CORPUSCULAR VOLUME 96.9 fl (83.0-99.0); MEAN PLATELET VOLUME 10.8 fl (9.4-12.4); MONOCYTES ABSOLUTE AUTO 0.8 K/mm3 (0.0-0.8); MONOCYTES PERCENT AUTO 11.9 % (0.0-8.0); NEUTROPHILS ABSOLUTE AUTO 3.8 K/mm3 (1.8-7.7); NEUTROPHILS PERCENT AUTO 57.1 % (41.0-71.0); PLATELET COUNT,PLT 159 K/mm3 (150-400); RED BLOOD CELL COUNT 4.26 M/mm3 (4.52-5.90); WHITE BLOOD CELL COUNT,WBC 6.73 K/mm3 (3.9-11.3)
[2024-03-11 05:49] LABS: POTASSIUM,K 4.2 mEq/L (3.5-5.1)
[2024-03-11 06:12] LABS: ANION GAP 8.2 (5-15); BUN/CREATININE RATIO 27.8 (14-18); CALCIUM 8.3 mg/dL (8.5-10.1); CREATININE 0.9 mg/dL (0.7-1.3); EST CRCL DRUG DOSING (CG) 73.78 mL/min; MAGNESIUM 1.8 mg/dL (1.8-2.4)
[2024-03-11] MEDS ORDERED: Metoprolol Succinate 25 MG Tab.ER PO SCH (09:00)
[2024-03-11 14:15] VITALS: BP 92/75; PULSE 78
== END 2024-03-11 14:01 | DRG 291 ==
LOC: JD.ED 15:48 → JD.MS 18:35 → JD.ICU 03-08 08:22
PROVIDERS: ADMIT Family Medicine; ATTEND Student in an Organized Health Care Education/Training Program
PROC: 4B02XTZ Measurement of Cardiac Defibrillator, External Approach (ICD-10-PCS; principal; 2024-03-11)
DX: I50.9 Heart failure, unspecified (principal); I11.0 Hypertensive heart disease with heart failure; I50.23 Acute on chronic systolic (congestive) heart failure; F10.10 Alcohol abuse, uncomplicated; J96.01 Acute respiratory failure with hypoxia; J96.02 Acute respiratory failure with hypercapnia; I42.9 Cardiomyopathy, unspecified; Z95.0 Presence of cardiac pacemaker; I25.10 Atherosclerotic heart disease of native coronary artery without angina pectoris; E78.5 Hyperlipidemia, unspecified; F10.20 Alcohol dependence, uncomplicated; J44.89 Other specified chronic obstructive pulmonary disease; F17.210 Nicotine dependence, cigarettes, uncomplicated; Z66 Do not resuscitate; I48.91 Unspecified atrial fibrillation; H54.7 Unspecified visual loss; K21.9 Gastro-esophageal reflux disease without esophagitis; J44.9 Chronic obstructive pulmonary disease, unspecified; I95.9 Hypotension, unspecified; E83.42 Hypomagnesemia; Z95.810 Presence of automatic (implantable) cardiac defibrillator; Z79.82 Long term (current) use of aspirin; I25.2 Old myocardial infarction; Z79.899 Other long term (current) drug therapy; Z79.51 Long term (current) use of inhaled steroids; Z87.81 Personal history of (healed) traumatic fracture; Z95.5 Presence of coronary angioplasty implant and graft; Z91.199 Patient's noncompliance with other medical treatment and regimen due to unspecified reason
CPT/HCPCS: 36415; 71046; 80053; 80307; 83880; 84484; 85025; 85379; 86140; 93005; 96374; 96375; 99285; J1940; J2270; 36600; 71275; 71275-26; 80048; 82803; 83735; 84439; 84443; 87428-QW; 93306; 94640; 94667; 94668; 94762; 97110-GP; 97116-GP; 97161-GP; 97530-GP; A9270-GY; J1650; J2405; J3475; J7030; J7620-GY; Q9967

== ENCOUNTER 2024-05-18 15:16 | Emergency (ER) | payer MEDICAID ==
[2024-05-18 16:05] LABS: BASOPHILS PERCENT AUTO 0.3 % (0.0-1.0); EOSINOPHILS ABSOLUTE AUTO 0.2 K/mm3 (0.0-0.4); EOSINOPHILS PERCENT AUTO 1.7 % (0.0-6.0); HEMATOCRIT 50.6 % (42.0-52.0); IMMATURE GRAN ABSOLUTE AUTO 0.05 K/mm3 (0.00-0.05); IMMATURE GRAN PERCENT AUTO 0.4 % (0.0-0.4); LYMPHOCYTES ABSOLUTE AUTO 1.7 K/mm3 (1.0-4.8); LYMPHOCYTES PERCENT AUTO 14.3 % (24.0-44.0); MEAN CORPUSCULAR HEMOGLOBIN 29.7 pg (28.0-32.0); MEAN CORPUSCULAR HGB CONC 31.6 g/dl (32.0-36.0); MEAN CORPUSCULAR VOLUME 93.9 fl (83.0-99.0); MEAN PLATELET VOLUME 9.4 fl (9.4-12.4); MONOCYTES ABSOLUTE AUTO 0.9 K/mm3 (0.0-0.8); MONOCYTES PERCENT AUTO 7.5 % (0.0-8.0); NEUTROPHILS ABSOLUTE AUTO 9.1 K/mm3 (1.8-7.7); NEUTROPHILS PERCENT AUTO 75.8 % (41.0-71.0); PLATELET COUNT,PLT 273 K/mm3 (150-400); RED BLOOD CELL COUNT 5.39 M/mm3 (4.52-5.90); WHITE BLOOD CELL COUNT,WBC 11.94 K/mm3 (3.9-11.3)
[2024-05-18] MEDS: Folic Acid 50 MG/10 ML MDV IV STA (16:15)
[2024-05-18 16:16] LABS: A/G RATIO 1.1 (1-2); ALBUMIN 4.3 g/dl (3.4-5.0); BILIRUBIN TOTAL 0.4 mg/dL (0.2-1.0); BUN/CREATININE RATIO 7.3 (14-18); CALCIUM 8.5 mg/dL (8.5-10.1); CREATININE 1.1 mg/dL (0.7-1.3); EST CRCL DRUG DOSING (CG) 73.02 mL/min; ETHANOL BLOOD MEDICAL 0.37 gm% (0.00); PROTEIN TOTAL,TP 8.3 g/dl (6.4-8.2)
[2024-05-18] MEDS: Ondansetron 4 MG/2 ML SDV IVPUSH ONE (16:19)
[2024-05-18] MEDS: Sodium Chloride 0.9% 1,000 ML IV ONE (16:19)
[2024-05-18] MEDS: Thiamine 200 MG/2 ML MDV IVPUSH ONE (16:19)
[2024-05-18 18:54] VITALS: BP 115/84; PULSE 97
== END 2024-05-18 18:44 | disposition home or self-care (01) ==
LOC: JD.ED 15:16
DX: F10.120 Alcohol abuse with intoxication, uncomplicated (principal); S00.83XA Contusion of other part of head, initial encounter; S80.12XA Contusion of left lower leg, initial encounter; S80.11XA Contusion of right lower leg, initial encounter; I25.10 Atherosclerotic heart disease of native coronary artery without angina pectoris; I48.91 Unspecified atrial fibrillation; I50.9 Heart failure, unspecified; I25.2 Old myocardial infarction; Z95.0 Presence of cardiac pacemaker; Z91.148 Patient's other noncompliance with medication regimen for other reason; V00.811A Fall from moving wheelchair (powered), initial encounter; Y93.89 Activity, other specified; Y90.9 Presence of alcohol in blood, level not specified
CPT/HCPCS: 36415; 70450; 72128; 72131; 80053; 80307; 83690; 83735; 84484; 85025; 96361; 96374; 96375; 99285; J2405; J3411; J7030

== ENCOUNTER 2024-11-20 19:18 | Emergency (ER) | payer MEDICAID ==
[2024-11-20] MEDS ORDERED: Naloxone 0.4 MG/ML SDV IVPUSH PRN (19:30)
[2024-11-20] MEDS: Ondansetron 4 MG/2 ML SDV IVPUSH ONE ×2 (19:54→21:22)
[2024-11-20] MEDS: fentaNYL 100 MCG/2 ML SDV IVPUSH ONE (19:55)
[2024-11-20] MEDS: Acetaminophen/oxyCODONE 325-5 MG Tab PO ONE (19:55)
[2024-11-20] MEDS: LORazepam 2 MG/ML SDV IVPUSH STA (22:30)
[2024-11-20 23:35] VITALS: BP 114/81; PULSE 89
== END 2024-11-21 | disposition home or self-care (01) ==
LOC: JD.ED 19:18
DX: S20.211A Contusion of right front wall of thorax, initial encounter (principal); J43.1 Panlobular emphysema; F10.10 Alcohol abuse, uncomplicated; I25.10 Atherosclerotic heart disease of native coronary artery without angina pectoris; I48.91 Unspecified atrial fibrillation; I25.2 Old myocardial infarction; J45.909 Unspecified asthma, uncomplicated; Z95.5 Presence of coronary angioplasty implant and graft; Z95.810 Presence of automatic (implantable) cardiac defibrillator; Z79.82 Long term (current) use of aspirin; Z79.899 Other long term (current) drug therapy; Y90.9 Presence of alcohol in blood, level not specified; W19.XXXA Unspecified fall, initial encounter
CPT/HCPCS: 71250; 96374; 96375; 96376; 99284; A9270; J2060; J2405; J2765; J3010